=== PATIENT | female | born 2000 | race Caucasian/White ===

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

== ENCOUNTER 2021-01-13 13:53 | Emergency (ER) | payer MEDICAID ==
[~2021-01-13] VITALS: Ht 165 cm; Wt 100.0 kg
--- NOTE | 2021-01-13 15:07 | ED Lower Extremity ---
General Chief Complaint: Lower Extremity Stated Complaint: L KNEE INJ Nursing Triage Note: PT STATES SHE FELL DOWN THE STAIRS THIS MORING AND HURT HER LEFT KNEE Source: patient Exam Limitations: no limitations History of Present Illness Date Seen by Provider: Jan 13, 2021 Time Seen by Provider: 15:03 Initial Comments ER with left knee popping and pain. This is been ongoing since her senior year in high school after softball. She states that over the course of the past years been getting worse. Today she fell down the stairs and twisted her knee and doing so. There was no direct injury to the knee. She feels more of a popping sensation. She works at [employer] and is on her feet a lot. She has an appointment with Dr. Gaurang Gomez on the of this month. She has been using ibuprofen without much improvement. Onset: just prior to arrival Severity: moderate Pain/Injury Location: left knee Method of Injury: fell, twisted Modifying Factors: Worse With Movement Allergies and Home Medications Allergies Coded Allergies: No Known Drug Allergies (Verified , 06/18/20) Home Medications Cetirizine HCl 10 Mg Tablet, 10 MG PO DAILY Prescribed by: STEVE ARELLANO on 10/23/19 113 Hydroxyzine HCl 25 Mg Tablet, 25 MG PO TID PRN for ITCHING Prescribed by: STEVE ARELLANO on 10/23/19 113 Levocetirizine Dihydrochloride 5 Mg Tablet, 5 MG PO BID Prescribed by: STEVE ARELLANO on 06/18/202129 Levothyroxine Sodium 150 Mcg Tablet, 1 EACH PO DAILY, (Reported) Methylprednisolone 4 Mg Tab.ds.pk, 4 MG PO UD PER DOSE PACK INSTRUCTIONS Prescribed by: FATEMEH SILVA on 06/06/20 1235 Methylprednisolone 4 Mg Tab.ds.pk, 4 MG PO UD PER DOSE PACK INSTRUCTIONS Prescribed by: STEVE ARELLANO on 06/18/20 195 Montelukast Sodium 10 Mg Tablet, 10 MG PO DAILY Prescribed by: STEVE ARELLANO on 06/18/202134 Prednisone 20 Mg Tab, 40 MG PO DAILY Prescribed by: SNEHAL PRADO on 02/13/20 0156 Tramadol HCl 50 Mg Tablet, 50 MG PO Q6H PRN for PAIN-MODERATE (5-7) Prescribed by: STEVE ARELLANO on 01/13/21 1508 Patient Home Medication List Home Medication List Reviewed: Yes Review of Systems Constitutional: see HPI EENTM: see HPI Respiratory: no symptoms reported Cardiovascular: no symptoms reported Genitourinary: no symptoms reported Musculoskeletal: see HPI Skin: no symptoms reported Psychiatric/Neurological: No Symptoms Reported Past Cbyjhdl-Sorroj-Epikzy Hx Patient Social History Alcohol Use: Denies Use Smoking Status: Never a Smoker 2nd Hand Smoke Exposure: No Recent Infectious Disease Expo: No Recent Hopitalizations: No Immunizations Up To Date Tetanus Booster (TDap): Less than 5yrs PED Vaccines UTD: Yes Date of Influenza Vaccine: Jun 03, 2013 Seasonal Allergies Seasonal Allergies: No Past Medical History Surgeries: Yes Adenoidectomy, Tonsillectomy Respiratory: No Cardiac: No Neurological: No Reproductive Disorders: No Female Reproductive Disorders: Denies Sexually Transmitted Disease: No HIV/AIDS: No Genitourinary: No Gastrointestinal: Yes ( A BABY) Gastroesophageal Reflux Musculoskeletal: Yes Endocrine: Yes (Jm's thyroiditis, insulin resistant) Hypothyroidsim HEENT: No Cancer: No Psychosocial: Yes Anxiety, Depression Integumentary: Yes (HIVES/URTICARIA) Blood Disorders: No Family Medical History Cancer Cancer of colon Cataract Family history: Asthma Family history: Cardiovascular disease Family history: Diabetes mellitus Family history: Hypertension Family history: Thyroid disorder Heart disease No Family History of: Abdominal aortic aneurysm [place]'s disease Alcoholism Aphasia Congenital heart disease Congestive heart failure Cystic fibrosis Dementia Dysphagia Family history: Allergy Family history: Alzheimer's disease Family history: Arthritis Family history: Breast disease Family history: Coronary thrombosis Family history: Gastrointestinal disease Family history: Glaucoma Family history: Osteoporosis Headache Hearing loss Hereditary disease History of - anemia History of - disorder History of - respiratory disease History of drug abuse Human immunodeficiency virus (HIV) seropositivity Hypercholesterolemia Infertile Kidney disease Malignant neoplasm of lung Myocardial infarction Parkinson's disease Prostate cancer Psychotic disorder Seizure disorder Stroke Tuberculosis Visual impairment Physical Exam Vital Signs Vital Signs - First Documented 01/13/21 14:28 Temp 37.0 Pulse 65 Resp 16 B/P (MAP) 104/60 O2 Delivery Room Air Capillary Refill : Height, Weight, BMI Height: 5'5.00" Weight: 180lbs. 7oz. 81.792942ev; 36.00 BMI Method:Stated General Appearance: WD/WN, no apparent distress Neck: non-tender, full range of motion Respiratory: no respiratory distress, no accessory muscle use Hips: bilateral hip non-tender, bilateral hip normal inspection, bilateral hip normal range of motion Legs: bilateral leg non-tender, bilateral leg normal inspection, bilateral leg normal range of motion Knees: left knee pain, left knee other (Normal appearance normal range of motion) Ankles: bilateral ankle non-tender, bilateral ankle normal inspection, bilateral ankle normal range of motion Feet: bilateral foot non-tender, bilateral foot normal inspection, bilateral foot normal range of motion Neurologic/Psychiatric: alert, normal mood/affect, oriented x 3 Skin: normal color, warm/dry Progress/Results/Core Measures Results/Orders Vital Signs/I&O 01/13/21 14:28 Temp 37.0 Pulse 65 Resp 16 B/P (MAP) 104/60 O2 Delivery Room Air Departure Impression Primary Impression: Internal derangement of left knee Disposition: HOME, SELF-CARE Condition: Stable Departure-Patient Inst. Decision time for Depature: 15:05 Referrals: [facility] (PCP/Family) Primary Care Physician TABITHA ESTRADA MD Patient Instructions: Internal Derangement of the Knee, Meniscal Tear Add. Discharge Instructions: 1. Keep your appointment with Dr. Gomez and ask her if she feels MRI of the knee is appropriate. In the meantime continue ibuprofen and Tylenol in addition to the prescribed pain medication. All discharge instructions reviewed with patient and/or family. Voiced understanding. Scripts Tramadol HCl (Ultram) 50 Mg Tablet 50 MG PO Q6H PRN for PAIN-MODERATE (5-7), #14 TAB . Prov: STEVE ARELLANO APRN 01/13/21 Work/School Note: Work Release Form Date Seen in the Emergency Department: Jan 13, 2021 Return to Work: Jan 14, 2021 Restrictions: No Restrictions Other Restrictions Listed Below: Crutches as needed. Please allow to rest left knee for 30 minutes as needed STEVE ARELLANO APRN Jan 13, 2021 15:07
[2021-01-13] MEDS ORDERED: TRAM-42 PO ×2 (15:08→15:17)
== END 2021-01-13 15:16 | disposition home or self-care (01) ==
LOC: EDUNIT# 13:53 → ER 13:54
DX: M23.92 Unspecified internal derangement of left knee (principal); E03.9 Hypothyroidism, unspecified; F41.9 Anxiety disorder, unspecified; Z79.890 Hormone replacement therapy; Z79.52 Long term (current) use of systemic steroids; Z79.899 Other long term (current) drug therapy

== ENCOUNTER 2021-05-07 16:54 | Emergency (ER) | payer MEDICAID ==
[~2021-05-07] VITALS: Ht 165 cm; Wt 86.0 kg
[~2021-05-07 16:54] MED LIST changes: +TRAM-42 PO
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
--- OUTSIDE RECORDS SUMMARY | 2021-05-07 16:59 | XMS REPORT | Encounter Summary ---
Author Author [facility] Organization [facility] Address Unknown Phone Unavailable Care Team Providers Care Digital Manager Name Role Phone Jason Romero DO, Casey PCP Reason for Visit * Reason Comments Medication Refill Encounter Details Care Team Description Date Type Department Talia Van MD [address] [facility] [address] [place], [place] [phone] 04/30/2021 Refill Endocrinology: [facility] [place] [place] [address] [place] [id number] Social History Date Tobacco Use Types Packs/Day Years Used Never Smoker Smokeless Tobacco: Never Used Comments Alcohol Use Standard Drinks/Week Not Currently 0 (1 standard drink = 0.6 o z pure alcohol) Sex Assigned at Date Recorded Not on file documented as of this encounter Ordered Prescriptions Start Date End Date Prescription Sig Dispensed Refills 04/30/2021 levothyroxine (SYNTHROID) Take one 90 tablet 2 175 mcg tablet tablet by mouth daily 30 minutes before breakfast. documented in this encounter Plan of Treatment Not on filedocumented as of this encounter Visit Diagnoses Not on filedocumented in this encounter Discontinued Medications Start Date End Date Medication Sig Discontinue Reason 01/10/2021 04/30/2021 levothyroxine (SYNTHROID) Take one Reorder 175 mcg tablet tablet by mouth daily 30 minutes before breakfast. documented as of this encounter
[2021-05-07 17:36] LABS: BILIRUBIN,URINE NEGATIVE (NEGATIVE); CLARITY,URINE CLEAR; COLOR,URINE YELLOW; GLUCOSE, URINE (UA) NEGATIVE (NEGATIVE); KETONES,URINE NEGATIVE (NEGATIVE); LEUKOCYTE ESTERASE ,URINE NEGATIVE (NEGATIVE); NITRITE,URINE POSITIVE (NEGATIVE); PROTEIN,URINE NEGATIVE (NEGATIVE)
[2021-05-07 17:43] LABS: BASOPHILS % (AUTO) 0 % (0-10); EOSINOPHILS % (AUTO) 0 % (0-10); HEMATOCRIT 40 % (35-52); HEMOGLOBIN 12.8 g/dL (11.5-16.0); LYMPHOCYTES # (AUTO) 2.5 10^3/uL (1.0-4.0); LYMPHOCYTES % (AUTO) 21 % (12-44); MEAN CORPUSCULAR HEMOGLOBIN 28 pg (25-34); MEAN CORPUSCULAR HGB CONC 32 g/dL (32-36); MEAN CORPUSCULAR VOLUME 87 fL (80-99); MEAN PLATELET VOLUME 9.3 fL (9.0-12.2); MONOCYTES # (AUTO) 1.1 10^3/uL (0.0-1.0); MONOCYTES % (AUTO) 9 % (0-12); NEUTROPHILS # (AUTO) 8.3 10^3/uL (1.8-7.8); NEUTROPHILS % (AUTO) 69 % (42-75); PLATELET COUNT 294 10^3/uL (130-400)
[2021-05-07 17:44] LABS: BACTERIA,URINE LARGE /HPF
[2021-05-07 17:54] LABS: ALBUMIN 4.2 GM/DL (3.2-4.5); POTASSIUM 3.9 MMOL/L (3.6-5.0)
[2021-05-07 17:55] LABS: CALCIUM 9.5 MG/DL (8.5-10.1)
[2021-05-07 17:57] LABS: TOTAL PROTEIN 7.4 GM/DL (6.4-8.2)
[2021-05-07 17:58] LABS: BILIRUBIN,TOTAL 0.2 MG/DL (0.1-1.0); PROTHROMBIN TIME PATIENT 13.3 SEC (12.2-14.7)
[2021-05-07 18:00] LABS: CREATININE SERUM 0.74 MG/DL (0.60-1.30)
[2021-05-07] MEDS ORDERED: NS IV 1000 ML 1,000 ML IV SCH (18:00)
--- NOTE | 2021-05-07 18:02 | ED EENT ---
History of Present Illness General Chief Complaint: Eye Problems Stated Complaint: HEADACHE/OPTIC NERVE EDEMA Nursing Triage Note: AMB TO ROOM FROM DR [facility]AMPOS [facility] WAS SEEN BY DR MORTON FOR ROUTINE EYE EXAM A OPTIC NERVE RUELAS WHICH SHOWED OPTIC NERVE EDEMA. PATIENT REPORTS HAVING A HEADACHE WITH PRESSURE BEHINDE EYES FOR 2 MONTHS. (JENNIFER JAIMES) History of Present Illness Date Seen by Provider: May 07, 2021 Time Seen by Provider: 17:00 Initial Comments 20-year-old female presents after being seen by sports therapist for 2- month history of eye pressure. She had scans done in their office that showed edema around the optic nerve. She was referred here for labs, CT and possible lumbar puncture. Patient denies any previous history of injuries or problems with her eyes. She denies vision changes. She has a history of Jm's and is taking levothyroxine. She denies recent medication changes or allergies. No head or neck injuries in the past. Timing/Duration: other (2 months) Location: eye (R), eye (L) Associated Symptoms: facial pain/swelling (sis orbital) (JENNIFER JAIMES) Allergies and Home Medications Allergies Coded Allergies: No Known Drug Allergies (Verified , 06/18/20) Patient Home Medication List Home Medication List Reviewed: Yes (JENNIFER JAIMES) Cetirizine HCl (Cetirizine HCl) 10 Mg Tablet, 10 MG PO DAILY Prescribed by: STEVE ARELLANO on 10/23/19 113 Hydroxyzine HCl (Hydroxyzine HCl) 25 Mg Tablet, 25 MG PO TID PRN for ITCHING Prescribed by: STEVE ARELLANO on 10/23/19 113 Levocetirizine Dihydrochloride (Levocetirizine Dihydrochloride) 5 Mg Tablet, 5 M G PO BID Prescribed by: STEVE ARELLANO on 06/18/202129 Levothyroxine Sodium (Levothyroxine 150 Mcg Tab) 150 Mcg Tablet, 1 EACH PO DAILY, (Reported) Entered as Reported by: OSMAN SANTANA on 12/24/13 175 Methylprednisolone (Methylprednisolone Dose Pack) 4 Mg Tab.ds.pk, 4 MG PO UD Prescribed by: FATEMEH SILVA on 06/06/20 1235 Methylprednisolone (Medrol) 4 Mg Tab.ds.pk, 4 MG PO UD Prescribed by: STEVE ARELLANO on 06/18/201954 Montelukast Sodium (Montelukast Sodium) 10 Mg Tablet, 10 MG PO DAILY Prescribed by: STEVE ARELLANO on 06/18/202134 Nitrofurantoin Macrocrystal (Nitrofurantoin) 100 Mg Capsule, 100 MG PO BID Prescribed by: JENNIFER JAIMES on 05/07/211907 Norgestimate-Ethinyl Estradiol (Tri-Lo-Enedina Tablet) 1 Each Tablet, (Reported) Entered as Reported by: THOMAS TRACEY on 02/13/20 014 Prazosin HCl (Prazosin HCl) 2 Mg Capsule, (Reported) Entered as Reported by: THOMAS TRACEY on 02/13/20 014 Prazosin HCl (Prazosin HCl) 5 Mg Capsule, (Reported) Entered as Reported by: THOMAS TRACEY on 02/13/20 014 Prednisone (Prednisone) 20 Mg Tab, 40 MG PO DAILY Prescribed by: SNEHAL PRADO on 02/13/20 0156 Tramadol HCl (Ultram) 50 Mg Tablet, 50 MG PO Q6H PRN for PAIN-MODERATE (5-7) Prescribed by: STEVE ARELLANO on 01/13/21 1517 Review of Systems Review of Systems Constitutional: no symptoms reported, see HPI Eyes: See HPI; Denies Blurred Vision, Denies Decreased Acuity, Denies Foreign Body Sensation, Denies Inflammation; Pain; Denies Photophobia, Denies Tunnel Vision, Denies Vision Changes; Contact Lenses, Glasses Ears: No Symptoms Reported, See HPI Nose: no symptoms reported, see HPI Mouth: no symptoms reported, see HPI Throat: no symptoms reported, see HPI Respiratory: no symptoms reported, see HPI Cardiovascular: no symptoms reported, see HPI : No (Neg Urine HCG) (JENNIFER JAIMES) All Other Systems Reviewed Negative Unless Noted: Yes (JENNIFER JAIMES) Past Cfgiclh-Brcbky-Nxytzp Hx Patient Social History Tobacco Use?: No (JENNIFER JAIMES) Immunizations Up To Date Tetanus Booster (TDap): Less than 5yrs PED Vaccines UTD: Yes First/Initial COVID19 Vaccinat: MAR Second COVID19 Vaccination Lucio: APR COVID19 Vaccine Braider Operator: FARIHA (JENNIFER JAIMES) Seasonal Allergies Seasonal Allergies: No (JENNIFER JAIMES) Past Medical History Surgeries: Yes Adenoidectomy, Tonsillectomy Respiratory: No Cardiac: No Neurological: No Reproductive Disorders: No Female Reproductive Disorders: Denies Sexually Transmitted Disease: No HIV/AIDS: No Genitourinary: No Gastrointestinal: Yes ( A BABY) Gastroesophageal Reflux Musculoskeletal: Yes Endocrine: Yes (Jm's thyroiditis, insulin resistant) Hypothyroidsim HEENT: No Cancer: No Psychosocial: Yes Anxiety, Depression Integumentary: Yes (HIVES/URTICARIA) Blood Disorders: No (JENNIFER JAIMES) Family Medical History Reviewed Nursing Family Hx (JENNIFER JAIMES) Cancer Cancer of colon Cataract Family history: Asthma Family history: Cardiovascular disease Family history: Diabetes mellitus Family history: Hypertension Family history: Thyroid disorder Heart disease No Family History of: Abdominal aortic aneurysm Backus's disease Alcoholism Aphasia Congenital heart disease Congestive heart failure Cystic fibrosis Dementia Dysphagia Family history: Allergy Family history: Alzheimer's disease Family history: Arthritis Family history: Breast disease Family history: Coronary thrombosis Family history: Gastrointestinal disease Family history: Glaucoma Family history: Osteoporosis Headache Hearing loss Hereditary disease History of - anemia History of - disorder History of - respiratory disease History of drug abuse Human immunodeficiency virus (HIV) seropositivity Hypercholesterolemia Infertile Kidney disease Malignant neoplasm of lung Myocardial infarction Parkinson's disease Prostate cancer Psychotic disorder Seizure disorder Stroke Tuberculosis Visual impairment Physical Exam Vital Signs Vital Signs - First Documented 05/07/21 16:58 Temp 36.6 Pulse 89 Resp 18 B/P (MAP) 112/72 (85) Pulse Ox 99 O2 Delivery Room Air (YASH STOUT MD) Height, Weight, BMI Height: 5'5.00" Weight: 180lbs. 7oz. 81.335325vq; 31.00 BMI Method:Stated General Appearance: WD/WN, no apparent distress Eyes: bilateral eye normal inspection, bilateral eye PERRL, bilateral eye EOMI Ears: bilateral ear auricle normal, bilateral ear canal normal, bilateral ear TM normal Nose: normal inspection; No discharge Mouth/Throat: normal mouth inspection, pharynx normal; No dental tenderness Neck: non-tender, full range of motion, supple, normal inspection Cardiovascular: normal peripheral pulses, regular rate, rhythm Respiratory: chest non-tender, lungs clear, normal breath sounds Gastrointestinal: normal bowel sounds, non tender, soft Neurologic/Psychiatric: help desk agent II-XII nml as tested, no motor/sensory deficits, alert, normal mood/affect, oriented x 3 Skin: normal color, warm/dry (JENNIFER JAIMES) Progress/Results/Core Measures Results/Orders Lab Results Laboratory Tests Test 05/07/21 17:26 05/07/21 17:31 Range/Units White Blood Count 12.0 H 4.3-11.0 10^3/uL Red Blood Count 4.63 3.80-5.11 10^6/uL Hemoglobin 12.8 11.5-16.0 g/dL Hematocrit 40 35-52 % Mean Corpuscular Volume 87 80-99 fL Mean Corpuscular Hemoglobin 28 25-34 pg Mean Corpuscular Hemoglobin Concent 32 32-36 g/dL Red Cell Distribution Width 13.6 10.0-14.5 % Platelet Count 294 130-400 10^3/uL Mean Platelet Volume 9.3 9.0-12.2 fL Immature Granulocyte % (Auto) 0 % Neutrophils (%) (Auto) 69 42-75 % Lymphocytes (%) (Auto) 21 12-44 % Monocytes (%) (Auto) 9 0-12 % Eosinophils (%) (Auto) 0 0-10 % Basophils (%) (Auto) 0 0-10 % Neutrophils # (Auto) 8.3 H 1.8-7.8 10^3/uL Lymphocytes # (Auto) 2.5 1.0-4.0 10^3/uL Monocytes # (Auto) 1.1 H 0.0-1.0 10^3/uL Eosinophils # (Auto) 0.0 0.0-0.3 10^3/uL Basophils # (Auto) 0.0 0.0-0.1 10^3/uL Immature Granulocyte # (Auto) 0.0 0.0-0.1 10^3/uL Prothrombin Time 13.3 12.2-14.7 SEC INR Comment 1.0 0.8-1.4 Activated Partial Thromboplast Time 30 24-35 SEC Sodium Level 139 135-145 MMOL/L Potassium Level 3.9 3.6-5.0 MMOL/L Chloride Level 105 98-107 MMOL/L Carbon Dioxide Level 25 21-32 MMOL/L Anion Gap 9 5-14 MMOL/L Blood Urea Nitrogen 15 7-18 MG/DL Creatinine 0.74 0.60-1.30 MG/DL Estimat Glomerular Filtration Rate 101 BUN/Creatinine Ratio 20 Glucose Level 88 70-105 MG/DL Calcium Level 9.5 8.5-10.1 MG/DL Corrected Calcium 9.3 8.5-10.1 MG/DL Total Bilirubin 0.2 0.1-1.0 MG/DL Aspartate Amino Transf (AST/SGOT) 12 5-34 U/L Alanine Aminotransferase (ALT/SGPT) 10 0-55 U/L Alkaline Phosphatase 75 40-136 U/L C-Reactive Protein High Sensitivity 2.35 H 0.00-0.50 MG/DL Total Protein 7.4 6.4-8.2 GM/DL Albumin 4.2 3.2-4.5 GM/DL Thyroid Stimulating Hormone (TSH) 1.84 0.35-4.94 UIU/ML Urine Color YELLOW Urine Clarity CLEAR Urine pH 6.0 5-9 Urine Specific Orange 1.025 H 1.016-1.022 Urine Protein NEGATIVE NEGATIVE Urine Glucose (UA) NEGATIVE NEGATIVE Urine Ketones NEGATIVE NEGATIVE Urine Nitrite POSITIVE H NEGATIVE Urine Bilirubin NEGATIVE NEGATIVE Urine Urobilinogen 0.2 < = 1.0 MG/DL Urine Leukocyte Esterase NEGATIVE NEGATIVE Urine RBC (Auto) NEGATIVE NEGATIVE Urine RBC NONE /HPF Urine WBC 2-5 /HPF Urine Squamous Epithelial Cells 2-5 /HPF Urine Renal Epithelial Cells NONE /HPF Urine Crystals NONE /LPF Urine Bacteria LARGE H /HPF Urine Casts NONE /LPF Urine Mucus NEGATIVE /LPF Urine Culture Indicated YES (YASH STOUT MD) Medications Given in ED Current Medications Medications Dose Ordered Sig/Shiraz Route Start Time Stop Time Status Last Admin Dose Admin Iohexol 100 ml ONCE ONCE IV 05/07/21 18:15 05/07/21 18:16 DC 05/07/21 18:12 80 ML Sodium Chloride 100 ml ONCE ONCE IV 05/07/21 18:15 05/07/21 18:16 DC 05/07/21 18:12 80 ML (YASH STOUT MD) Vital Signs/I&O 05/07/21 05/07/21 16:58 19:25 Temp 36.6 36.6 Pulse 89 77 Resp 18 16 B/P (MAP) 112/72 (85) 110/72 Pulse Ox 99 99 O2 Delivery Room Air Room Air 05/08/21 00:00 Intake Total 1000 ml Balance 1000 ml (YASH STOUT MD) Blood Pressure Mean: 85 Progress Progress Note : Time: 17:00 Progress Note patient evaluated. Will obtain labs and CT head. Will give NS 1 L IV. Denies any need for medications. 1800 Labs essentially normal. CRP 2.35. 1830 CT results reviewed with Radiologist. No acute findings. Spoke with Dr. Morton, feels the LP can be completed outpatient tomorrow with anesthesia. Scheduled LP with dye house wheel operator and orders provided. 1900 discharge instructions reviewed with the patient. Return precautions discussed. All questions answered. (JENNIFER JAIMES) Departure Impression Primary Impression: Eye pressure Additional Impressions: Optic nerve edema Pseudotumor cerebri Disposition: HOME, SELF-CARE Condition: Stable Departure-Patient Inst. Decision time for Depature: 19:05 (EJNNIFER JAIMES) Referrals: [facility] [place] (PCP/Family) Primary Care Physician Patient Instructions: Headache, Adult (DC) Add. Discharge Instructions: Activity as tolerated. Continue your home medications. Call registration tomorrow morning, [phone] time to have your lumbar puncture. Follow-up with Dr. Morton and Dr. Vazquez for your results. Light breakfast in morning, prior to Lumbar Puncture. Take antibiotics as prescribed for the UTI. You may alternate between Tylenol 650 mg and ibuprofen 600 mg every 4 hours for pain. Increase water intake, 16 ounces every 2 hours while awake. Empty your bladder every 2 hours. Return to the emergency department for new, urgent healthcare needs. All discharge instructions reviewed with patient and/or family. Voiced understanding. Scripts Nitrofurantoin Macrocrystal (Nitrofurantoin) 100 Mg Capsule 100 MG PO BID, #14 CAP 0 Refills Prov: JENNIFER JAIMES 05/07/21 ATTENDING PHYSICIAN NOTE: I was physically present as attending physician in the emergency department during the care of this patient, and I have discussed the plan of care including work-up and follow-up care with Jennifer Jaimes NP. (YASH STOUT MD) Copy Copies To 1: FERNANDO VAZQUEZ DO; ASHANTI CAMPOS OD, AMY ARNP May 07, 2021 18:02 YASH STOUT MD May 08, 2021 00:27
[2021-05-07] MEDS ORDERED: NS 100 ML (IVPB) BAG IV ONE (18:15)
[2021-05-07] MEDS ORDERED: HOLD METFORMIN - RECEIVED CONTRAST 20 ML VIAL IV SCH (18:15)
[2021-05-07] MEDS ORDERED: IOHEXOL 350 MG/ML 100 ML (OMNIPAQUE 350) VIAL IV ONE (18:15)
--- NOTE | 2021-05-07 18:31 | Diagnostic Imaging Report ---
PROCEDURE: CT head with contrast. TECHNIQUE: Multiple contiguous axial images were obtained through the brain after the administration of intravenous contrast. Auto Exposure Controls were utilized during the CT exam to meet ALARA standards for radiation dose reduction. INDICATION: Headaches, eye pressure There are no prior CT examinations available for comparison. The MRI brain exam performed on 01/30/2014 failed to show any sign of an acute intracranial abnormality. On the pre-intravenous contrast series of this exam there is no mass, shift of the midline or hemorrhage to indicate an acute abnormality. On the postcontrast series, there is no large vessel occlusion identified nor is there any sign of an aneurysm of the [place]. Furthermore, there is no abnormal enhancement on the postcontrast series to suggest a neoplastic or infectious process. The bone windows show no sign of a fracture or of a destructive lesion. The orbits appear symmetrical. There is no abnormal enhancement to indicate an acute abnormality involving either orbit. The sinuses are generally clear as are the mastoid air cells. IMPRESSION: 1. There is no evidence for an acute intracranial abnormality. There is no abnormality of the orbits identified either. 2. If clinical concern regarding an underlying abnormality persists, then MRI of the brain and orbits would be recommended for further study. 3. These results were discussed with Dr. Jennifer Galeano.. Dictated by: Dictated on workstation # [id number]
[2021-05-07] MEDS ORDERED: NITR100C PO ×2 (19:08)
[2021-05-07] MEDS ORDERED: RX-NITROFURANTOIN 100 MG (MACROBID) CAP PPK#2 PO STA (19:12)
[2021-05-07 19:25] VITALS: BP 110/72
== END 2021-05-07 19:26 | disposition home or self-care (01) ==
LOC: EDUNIT# 16:54 → ER 16:56
DX: H40.053 Ocular hypertension, bilateral (principal); H47.10 Unspecified papilledema; G93.2 Benign intracranial hypertension; E03.9 Hypothyroidism, unspecified; F41.9 Anxiety disorder, unspecified; Z79.890 Hormone replacement therapy; Z79.899 Other long term (current) drug therapy
CPT/HCPCS: 36415; 70460; 70470; 80053; 81000; 84443; 84703; 85025; 85610; 85730; 86141; 87077; 87088; 87186

== ENCOUNTER 2021-05-08 11:48 | Outpatient (CLI) | payer MEDICAID ==
[~2021-05-08] VITALS: Ht 162 cm; Wt 86.0 kg
[~2021-05-08 11:48] MED LIST changes: +NITR100C PO
[2021-05-08 12:23] VITALS: BP 101/52
--- NOTE | 2021-05-08 13:19 | Anesthesia-Procedure Note ---
Procedures/Interventions Procedure Start/Stop/Diagnosis Date of Procedure: May 08, 2021 Start Time: 12:30 Referring Physician: Preprocedural Diagnosis: headaches Stop Time: 13:05 Lumbar Puncture Discussed Risk,Benefits: Yes Patient Consents: Yes Position: Lying, Left Sterile Technique: Yes Opening Pressure: 49 Fluid Color: Clear Spinal Needle Used: Other (22 gauge Pencan) Procedure Notes Spoke with patient about the procedure technique, risks and expected side effects. Consent signed. Pat to left side position. L4/5 space ID'd. Pt back prepped with beta x 3. 22 gauge pencan placed without difficulty. Opening pressure as above. CSF obtained. Care to RN. TOBIN SANDHU CRNA May 08, 2021 13:19
[2021-05-08 14:01] LABS: COLOR,CSF COLORLESS; RED BLOOD CELL,CSF 2 CELLS (0-0); WHITE BLOOD CELL,CSF 2 CELLS (0-5)
[2021-05-08 14:02] LABS: CSF TUBE NUMBER 4
[2021-05-08 14:06] LABS: CSF GLUCOSE 53 MG/DL (50-80)
[2021-05-08 14:12] LABS: CSF TOTAL PROTEIN 18 MG/DL (15-40)
[2021-05-08 15:02] LABS: APPEARANCE,CSF CLEAR
== END 2021-05-08 13:37 ==
LOC: SDC 11:48
PROVIDERS: ATTEND Registered Nurse
DX: G93.2 Benign intracranial hypertension (principal)
CPT/HCPCS: 82945; 84157; 87070; 87205; 89051

== ENCOUNTER → 2021-05-16 | Outpatient (CLI) | payer MEDICAID ==
[~2021-05-16] MED LIST changes: +GADOBUTROL 15 MMOL/15 ML (GADAVIST) VIAL IV ONE
--- NOTE | 2021-05-16 21:18 | Diagnostic Imaging Report ---
PROCEDURE: MR imaging of the brain with and without contrast. TECHNIQUE: Multiplanar, multisequence MR imaging of the brain was performed with and without contrast. DATE: May 16, 2021. COMPARISON: MRI brain January 30, 2014. CT head May 07, 2021. HISTORY: 20-year-old female, headaches. History of lumbar puncture less than 1 week ago. FINDINGS: There are substantial limitations on the diffusion-weighted sequences. There is no clear area of diffusion restriction. There is also a substantial limitation on the gradient echo sequence for assessment of susceptibility without visualized area of abnormal susceptibility. There are additional areas of very prominent artifact anteriorly on the additional sequences which does limit evaluation. The ventricles and additional CSF spaces are normal in size and configuration for patient age. There is no identified subdural or epidural hematoma. There is hyperintense signal in the sulci anteriorly which is most likely related to the artifact. There is no mass effect or midline shift. There are no areas of abnormal intracranial signal. The mastoid air cells and middle ears are well-aerated, bilaterally. There is no identified abnormal intracranial enhancement. IMPRESSION: 1. Limitations of the exam relating to prominent artifact anteriorly. 2. No identified acute intracranial abnormality. Dictated by: Dictated on workstation # [id number]
== END ==
LOC: RAD 14:36
PROVIDERS: ATTEND Pediatrics
DX: R51.9 Headache, unspecified (principal); Z98.890 Other specified postprocedural states
CPT/HCPCS: 70553

== ENCOUNTER 2021-08-10 19:11 | Emergency (ER) | payer MEDICAID ==
[~2021-08-10] VITALS: Ht 165 cm; Wt 100.0 kg
[~2021-08-10 19:11] MED LIST changes: -GADOBUTROL 15 MMOL/15 ML (GADAVIST) VIAL IV ONE; +MONT-40 PO; -MONT10TA32 PO
--- OUTSIDE RECORDS SUMMARY | 2021-08-10 19:20 | XMS REPORT | Encounter Summary ---
Author Author [facility] Organization [facility] Address Unknown Phone Unavailable Care Team Providers Care Medical Service Technician Name Role Phone Jason Romero DO, Casey PCP Reason for Visit * Reason Onset Date Comments Other 06/25/2021 reschedule Encounter Details Care Team Description Date Type Department Talia Van MD [address] Ortho/[facility] [address] [place] [address] Other (reschedule) 06/25/2021 Telephone Endocrinology: [facility] [place] [address] [place] [address] Social History Date Tobacco Use Types Packs/Day Years Used Never Smoker Smokeless Tobacco: Never Used Comments Alcohol Use Standard Drinks/Week Not Currently 0 (1 standard drink = 0.6 o z pure alcohol) Sex Assigned at Date Recorded Not on file documented as of this encounter Miscellaneous Notes * Telephone Encounter - Juliana Osuna RN - 06/25/2021 9:53 AM ADMISSIONS REPRESENTATIVE [phone] attempted call to pt for virtual checkin No answer, LVM requesting return call [phone] attempted second call to pt for virtual checkin No answer, LVM requesting return call [phone] attempted third call to pt for virtual checkin No answer, LVM requesting return call to scheduling to reschedule appt SSIONS REPRESENTATIVE documented in this encounter Plan of Treatment Not on filedocumented as of this encounter Visit Diagnoses Not on filedocumented in this encounter Care Teams Start Date End Date Medical Service Technician Relationship Specialty 12/25/20 Gaurang Gomez V, DO PCP - General Internal [address], [place] [id number] documented as of this encounter
--- OUTSIDE RECORDS SUMMARY | 2021-08-10 19:20 | XMS REPORT | Clinical Summary ---
Author Author [facility] Organization [facility] Address Unknown Phone Unavailable Care Team Providers Care Associate Broker Name Role Phone Jason Romero DO, Casey PCP Source Comments Some departments are not documenting in the electronic medical record. If you d o not see the information that you expected, contact Release of Information in [facility]ua[facility]ea Information Management department at [phone] for further assistan ce in locating additional records.[facility] Allergies No known active allergies Medications End Date Status Medication Sig Dispensed [...] Description Date Type Specialty Talia Van MD Other 07/30/2021 Telephone Endocrinology, [facility] Talia Van MD Other (reschedule) 06/25/2021 Telephone Endocrinology, [facility] Talia Van MD Other (Outside lab) 06/11/2021 Telephone Endocrinology, [facility] Talia Van MD Hypothyroidism, unspecified type 06/11/2021 Orders Only Endocrinology, [place] Talia Van MD Patient Reported Other 05/20/2021 Telephone Endocrinology, [place] [facility] from Last 3 Months [...] Due Date Last Done Comments CHLAMYDIA SCREENING 18-24 2001 YEARS HIV SCREENING 2016 HEPATITIS C SCREENING 2019 PHYSICAL (COMPREHENSIVE) 2019 EXAM INFLUENZA VACCINE 03/03/2021 09/15/2017 DTAP/TDAP VACCINES (7 - 05/02/2025 05/02/2015, Td or Tdap) 10/21/2005, 01/24/2004, Additional history exists HPV VACCINES Completed 10/28/2016, 10/30/2015, 07/03/2015 MENINGOCOCCAL VACCINE Completed 11/12/2017, (ACWY,Menactra) 10/28/2016 Procedures Comments Procedure Name Priority Date/Time Associated Diag nosis THYROID STIMULATING Routine 06/10/2021 Hypothyroi dism, HORMONE-TSH unspecified type FREE T4 (FREE THYROXINE) Routine 06/10/2021 Hypot hyroidism, ONLY unspecified type from Last 3 Months Results * (ABNORMAL) THYROID STIMULATING HORMONE-TSH (06/10/2021) TSH 0.37 (A) 0.50 - 4.30 OTHER OUTSIDE LAB Specimen Blood specimen (specimen) - Blood Narrative Performing Organization Address City/State/ZIP Code [place] OTHER OUTSIDE LAB * (ABNORMAL) FREE T4 (FREE THYROXINE) ONLY (06/10/2021) T4-Free 1.5 (A) 0.8 - 1.4 OTHER OUTSIDE LAB Specimen Blood specimen (specimen) - Blood Narrative Performing Organization Address City/State/ZIP Code [place] OTHER OUTSIDE LAB from Last 3 Months Insurance Type Payer Benefit Subscriber ID Effective Phone Address Plan / Dates Group Medicaid [facility] MEDICAID [facility] [id number] 2020-P [address] [place] [address] Advance Directives Patient Asbestos Abatement Technician Explanation Type Date Recorded Advance Directive/DPOA Care Teams Start Date End Date Associate Broker Relationship Specialty 12/25/20 Gaurang Gomez DO PCP - General Internal [address] [place] [address]
--- OUTSIDE RECORDS SUMMARY | 2021-08-10 19:20 | XMS REPORT | Encounter Summary ---
Author Author [facility] Organization [facility] Address Unknown Phone Unavailable Care Team Providers Care Party Supply Specialist Name Role Phone Jason Romero DO, Casey PCP Reason for Visit * Reason Onset Date Comments Other 07/30/2021 Encounter Details Care Team Description Date Type Department Talia Van MD [address] [facility] Ortho/Med [place] [place] [address] Other 07/30/2021 Telephone Endocrinology: [facility] [place], [facility] [address] [place] [address] Social History Date Tobacco Use Types Packs/Day Years Used Never Smoker Smokeless Tobacco: Never Used Comments Alcohol Use Standard Drinks/Week Not Currently 0 (1 standard drink = 0.6 o z pure alcohol) Sex Assigned at Date Recorded Not on file documented as of this encounter Miscellaneous Notes * Telephone Encounter - Juliana Osuna RN - 07/30/2021 9:35 AM MICROSOFT DYNAMICS AX DEVELOPER Called pt, relayed provider recommendations She verbalized understanding Would like lab orders sent to [facility] in [facility] RN called them at phone to get fax Faxed orders to [phone] Confirmation received 07/30/21 OSOFT DYNAMICS AX DEVELOPER * Telephone Encounter - Talia Van MD - 07/30/2021 9:26 AM MICROSOFT DYNAMICS AX DEVELOPER Please congratulate her for me. Let's get labs BRENDON - TSH and Free T4. Also ask her to add 2 extra Levothyroxine tabs per week for now. (ie, 1 tab five days per week, 2 tabs two days per week). Labs now as then in 4 weeks as well. I've ordered standing labs - can you please fax them to her preferred lab? Needs to get f/u appt with me or KENNEDY - missed her appt with me last month. Thanks KG OSOFT DYNAMICS AX DEVELOPER * Telephone Encounter - Juliana Osuna RN - 07/30/2021 9:10 AM MICROSOFT DYNAMICS AX DEVELOPER Pt called, LVM States "I need to talk to Talia Van as soon as possible" RN returned call to discuss Pt states she just found out today that she is Pt unsure how far along, but due date is March 19 2022 Current thyroid medication Levothyroxine 175mcg Routing to Dr. Van for review and advisement OSOFT DYNAMICS AX DEVELOPER documented in this encounter Plan of Treatment Order Schedule Name Type Priority Associated Diag noses Every 4 Weeks Auto for 9 Occurrences sta rting 07/30/2021 until 07/30/2022 THYROID STIMULATING Lab Routine Hypothyroi dism affecting HORMONE-TSH , antepartum Every 4 Weeks Auto for 9 Occurrences sta rting 07/30/2021 until 07/30/2022 FREE T4 (FREE THYROXINE) Lab Routine Hypot hyroidism affecting ONLY , antepartum documented as of this encounter Visit Diagnoses Diagnosis Hypothyroidism affecting , ant epartum - Primary documented in this encounter Care Teams Start Date End Date Party Supply Specialist Relationship Specialty 12/25/20 Gaurang Gomez DO PCP - General Internal [address] [place] [address] documented as of this encounter
--- OUTSIDE RECORDS SUMMARY | 2021-08-10 19:20 | XMS REPORT | Encounter Summary ---
Author Author [facility] Organization [facility] Address Unknown Phone Unavailable Care Team Providers Care Senior Litigation Paralegal Name Role Phone Jason Romero DO, Casey PCP Encounter Details Care Team Description Date Type Department Talia Van MD [address] [facility] [address] [place] [address] Hypothyroidism, unspecified type 06/11/2021 Orders Only Endocrinology: Main [place] [address] [place] [id number] Social History Date Tobacco Use Types Packs/Day Years Used Never Smoker Smokeless Tobacco: Never Used Comments Alcohol Use Standard Drinks/Week Not Currently 0 (1 standard drink = 0.6 o z pure alcohol) Sex Assigned at Date Recorded Not on file documented as of this encounter Plan of Treatment Not on filedocumented as of this encounter Procedures Comments Procedure Name Priority Date/Time Associated Diag nosis THYROID STIMULATING Routine 06/10/2021 Hypothyroi dism, HORMONE-TSH unspecified type FREE T4 (FREE THYROXINE) Routine 06/10/2021 Hypot hyroidism, ONLY unspecified type documented in this encounter Results * (ABNORMAL) THYROID STIMULATING HORMONE-TSH (06/10/2021) [...] Code P waldo Number OTHER OUTSIDE LAB documented in this encounter Visit Diagnoses Diagnosis Hypothyroidism, unspecified type documented in this encounter Care Teams Start Date End Date Senior Litigation Paralegal Relationship Specialty 12/25/20 Gaurang Gomez V, PCP - General Internal [address], [place] [id number] documented as of this encounter
--- OUTSIDE RECORDS SUMMARY | 2021-08-10 19:20 | XMS REPORT | Encounter Summary ---
Author Author [facility] Organization [facility] Address Unknown Phone Unavailable Care Team Providers Care Seat Installer Name Role Phone Jason Romero DO, Casey PCP Reason for Visit * Reason Onset Date Comments Other 06/11/2021 Outside lab Encounter Details Care Team Description Date Type Department Talia Van MD [address] Orth[facility] [address] [place], [place] [id number] Other (Outside lab) 06/11/2021 Telephone Endocrinology: Main [place], [facility] [address] [place] [address] Social History Date Tobacco Use Types Packs/Day Years Used Never Smoker Smokeless Tobacco: Never Used Comments Alcohol Use Standard Drinks/Week Not Currently 0 (1 standard drink = 0.6 o z pure alcohol) Sex Assigned at Date Recorded Not on file documented as of this encounter Miscellaneous Notes * Telephone Encounter - Giuliana Mccarty LPN - 06/11/2021 11:09 AM AVIAN KEEPER Received labs from [facility] Placed in Dr Alberto folder for review N KEEPER documented in this encounter Plan of Treatment Not on filedocumented as of this encounter Visit Diagnoses Not on filedocumented in this encounter Care Teams Start Date End Date Seat Installer Relationship Specialty 12/25/20 Gaurang Gomez DO PCP - General Internal [address] [place] [address] documented as of this encounter
[2021-08-10] MEDS ORDERED: LACTATED RINGERS 1,000 ML IV ONE (20:15)
--- NOTE | 2021-08-10 21:00 | ED General ---
General Chief Complaint: Abdominal/GI Problems Stated Complaint: 8 WKS PREG, STOMACH DISCOMFORT, PINK DISCHARGE Nursing Triage Note: PT REPORTS DIARRHEA SINCE LAST NIGHT. 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 PT IS APPROX 8 WKS . Source of Information: Patient History of Present Illness Date Seen by Provider: Aug 10, 2021 Time Seen by Provider: 20:05 Initial Comments PT ARRIVES VIA POV FROM HOME STATES "I'VE HAD NON-STOP DIARRHEA SINCE LAST NIGHT AND MY BODY CAN'T KEEP UP" HAS HAD DIARRHEA ABOUT 10 TIMES SINCE LAST NIGHT. NO BLACK/BLOODY/TARRY STOOLS MILD NAUSEA, NO VOMITING NO ABDOMINAL PAIN OR CRAMPING NO FEVER/SWEATS/CHILLS NO URINARY SYMPTOMS AND IS VOIDING A NORMAL AMOUNT NO DIZZINESS NO RESPIRATORY SYMPTOMS PT STATES SHE IS 8 WEEKS WITH LMP 06/12/21. IS PLANNING ON ESTABLISHING WITH DR. FLORES FOR OB CARE--APPOINTMENT 08/20/21 STATES JUST PRIOR TO ARRIVAL, SHE NOTICED A PINK TINGE ON TISSUE WHEN SHE WIPED AFTER URINATING. SO CAME TO ER. NO FURTHER BLEEDING PT HAS HAD COVID-19 VACCINE NO SICK CONTACTS OR SUSPICIOUS FOODS PCP: [facility], PAM VAZQUEZ. PLANS ON ESTABLISHING WITH DR. FLORES FOR OB CARE Allergies and Home Medications Allergies Coded Allergies: No Known Drug Allergies (Verified , 05/08/21) Patient Home Medication List Home Medication List Reviewed: Yes Cetirizine HCl (Cetirizine HCl) 10 Mg Tablet, 10 MG PO DAILY Prescribed by: STEVE ARELLANO on 10/23/19 1131 Hydroxyzine HCl (Hydroxyzine HCl) 25 Mg Tablet, 25 MG PO TID PRN for ITCHING Prescribed by: STEVE ARELLANO on 10/23/19 1131 Levocetirizine Dihydrochloride (Levocetirizine Dihydrochloride) 5 Mg Tablet, 5 MG PO BID Prescribed by: STEVE ARELLANO on 06/18/20 213 Levothyroxine Sodium (Levothyroxine 150 Mcg Tab) 150 Mcg Tablet, 1 EACH PO DAILY, (Reported) Entered as Reported by: OSMAN SANTANA on 12/24/13 1758 Methylprednisolone (Methylprednisolone Dose Pack) 4 Mg Tab.ds.pk, 4 MG PO UD Prescribed by: FATEMEH SILVA on 06/06/20 1235 Methylprednisolone (Medrol) 4 Mg Tab.ds.pk, 4 MG PO UD Prescribed by: STEVE ARELLANO on 06/18/201954 Montelukast Sodium (Montelukast Sodium) 10 Mg Tablet, 10 MG PO DAILY Prescribed by: STEVE ARELLANO on 06/18/202134 Nitrofurantoin Macrocrystal (Nitrofurantoin) 100 Mg Capsule, 100 MG PO BID Prescribed by: RAMYA JAIMES on 05/07/21 190 Norgestimate-Ethinyl Estradiol (Tri-Lo-Enedina Tablet) 1 Each Tablet, (Reported) Entered as Reported by: THOMAS TRACEY on 02/13/20 014 Prazosin HCl (Prazosin HCl) 2 Mg Capsule, (Reported) Entered as Reported by: THOMAS TRACEY on 02/13/20145 Prazosin HCl (Prazosin HCl) 5 Mg Capsule, (Reported) Entered as Reported by: THOMAS TRACEY on 02/13/20145 Prednisone (Prednisone) 20 Mg Tab, 40 MG PO DAILY Prescribed by: SNEHAL PRADO on 02/13/20 0156 Tramadol HCl (Ultram) 50 Mg Tablet, 50 MG PO Q6H PRN for PAIN-MODERATE (5-7) Prescribed by: STEVE ARELLANO on 01/13/21 1517 Review of Systems Review of Systems Constitutional: no symptoms reported; No dizziness EENTM: no symptoms reported Respiratory: no symptoms reported Cardiovascular: no symptoms reported Gastrointestinal: see HPI Genitourinary: see HPI : Yes LMP: Jun 12, 2021 Musculoskeletal: no symptoms reported Skin: no symptoms reported Psychiatric/Neurological: No Symptoms Reported Hematologic/Lymphatic: No Symptoms Reported Immunological/Allergic: no symptoms reported Past Syzogyx-Ptcdwn-Ucpkcg Hx Patient Social History Tobacco Use?: No Substance use?: No Alcohol Use?: No Pt feels they are or have been: No Immunizations Up To Date Tetanus Booster (TDap): Less than 5yrs PED Vaccines UTD: Yes First/Initial COVID19 Vaccinat: JANUARY 2021 Second COVID19 Vaccination Lucio: JANUARY 2021 COVID19 Vaccine Treasury Specialist: YOVANI Seasonal Allergies Seasonal Allergies: No Past Medical History Surgery/Hospitalization HX: HYPOTHYROIDISM Surgeries: Yes Adenoidectomy, Tonsillectomy Respiratory: No Cardiac: No Neurological: No : Yes Last Menstrual Period: Jun 12, 2021 Reproductive Disorders: No Female Reproductive Disorders: Denies Sexually Transmitted Disease: No HIV/AIDS: No Genitourinary: No Gastrointestinal: Yes ( A BABY) Gastroesophageal Reflux Musculoskeletal: Yes Endocrine: Yes (Jm's thyroiditis, insulin resistant) Hypothyroidsim HEENT: No Cancer: No Psychosocial: Yes Anxiety, Depression Integumentary: Yes (HIVES/URTICARIA) Blood Disorders: No Family Medical History Cancer Cancer of colon Cataract Family history: Asthma Family history: Cardiovascular disease Family history: Diabetes mellitus Family history: Hypertension Family history: Thyroid disorder Heart disease No Family History of: Abdominal aortic aneurysm Mcnary's disease Alcoholism Aphasia Congenital heart disease Congestive heart failure Cystic fibrosis Dementia Dysphagia Family history: Allergy Family history: Alzheimer's disease Family history: Arthritis Family history: Breast disease Family history: Coronary thrombosis Family history: Gastrointestinal disease Family history: Glaucoma Family history: Osteoporosis Headache Hearing loss Hereditary disease History of - anemia History of - disorder History of - respiratory disease History of drug abuse Human immunodeficiency virus (HIV) seropositivity Hypercholesterolemia Infertile Kidney disease Malignant neoplasm of lung Myocardial infarction Parkinson's disease Prostate cancer Psychotic disorder Seizure disorder Stroke Tuberculosis Visual impairment Physical Exam Vital Signs Vital Signs - First Documented 08/10/21 19:46 Temp 37.0 Pulse 98 Resp 18 B/P (MAP) 104/65 (78) O2 Delivery Room Air Capillary Refill : Less Than 3 Seconds Height, Weight, BMI Height: 5'5.00" Weight: 180lbs. 7oz. 81.628486lk; 36.00 BMI Method:Stated General Appearance: No Apparent Distress, WD/WN, Other (DOES NOT APPEAR ILL OR TO BE IN ANY DISCOMFORT OR DISTRESS) HEENT: Normal ENT Inspection, Moist Mucous Membranes Neck: Normal Inspection Respiratory: Normal Breath Sounds, No Accessory Muscle Use, No Respiratory Distress Cardiovascular: Regular Rate, Rhythm, No Murmur Gastrointestinal: Non Tender, Soft Back: No CVA Tenderness Extremity: Normal Inspection, No Pedal Edema Neurologic/Psychiatric: Alert, Oriented x3, No Motor/Sensory Deficits, Normal Mood/Affect, care management coordinator II-XII Norm as Tested Skin: Normal Color, Warm/Dry Progress/Results/Core Measures Suspected Sepsis SIRS Temperature: Pulse: 98 Respiratory Rate: 18 Laboratory Tests 08/10/21 21:30: White Blood Count 11.7H Blood Pressure 104 /65 Mean: 78 Laboratory Tests 08/10/21 21:30: Creatinine 0.70, Platelet Count 298, Total Bilirubin 0.1 Results/Orders Lab Results Laboratory Tests Test 08/10/21 21:20 08/10/21 21:30 08/10/21 22:37 Range/Units Urine Color YELLOW Urine Clarity CLEAR Urine pH 6.0 5-9 Urine Specific [place] 1.025 H 1.016-1.022 Urine Protein NEGATIVE NEGATIVE Urine Glucose (UA) NEGATIVE NEGATIVE Urine Ketones NEGATIVE NEGATIVE Urine Nitrite NEGATIVE NEGATIVE Urine Bilirubin NEGATIVE NEGATIVE Urine Urobilinogen 0.2 < = 1.0 MG/DL Urine Leukocyte Esterase NEGATIVE NEGATIVE Urine RBC (Auto) NEGATIVE NEGATIVE Urine RBC NONE /HPF Urine WBC 0-2 /HPF Urine Squamous Epithelial Cells NONE /HPF Urine Renal Epithelial Cells NONE /HPF Urine Crystals NONE /LPF Urine Bacteria FEW H /HPF Urine Casts NONE /LPF Urine Mucus NEGATIVE /LPF Urine Culture Indicated NO White Blood Count 11.7 H 4.3-11.0 10^3/uL Red Blood Count 4.67 3.80-5.11 10^6/uL Hemoglobin 12.8 11.5-16.0 g/dL Hematocrit 42 35-52 % Mean Corpuscular Volume 89 80-99 fL Mean Corpuscular Hemoglobin 27 25-34 pg Mean Corpuscular Hemoglobin Concent 31 L 32-36 g/dL Red Cell Distribution Width 13.6 10.0-14.5 % Platelet Count 298 130-400 10^3/uL Mean Platelet Volume 9.0 9.0-12.2 fL Immature Granulocyte % (Auto) 0 % Neutrophils (%) (Auto) 69 42-75 % Lymphocytes (%) (Auto) 21 12-44 % Monocytes (%) (Auto) 9 0-12 % Eosinophils (%) (Auto) 0 0-10 % Basophils (%) (Auto) 0 0-10 % Neutrophils # (Auto) 8.0 H 1.8-7.8 10^3/uL Lymphocytes # (Auto) 2.5 1.0-4.0 10^3/uL Monocytes # (Auto) 1.1 H 0.0-1.0 10^3/uL Eosinophils # (Auto) 0.0 0.0-0.3 10^3/uL Basophils # (Auto) 0.0 0.0-0.1 10^3/uL Immature Granulocyte # (Auto) 0.1 0.0-0.1 10^3/uL Sodium Level 137 135-145 MMOL/L Potassium Level 3.6 3.6-5.0 MMOL/L Chloride Level 104 98-107 MMOL/L Carbon Dioxide Level 22 21-32 MMOL/L Anion Gap 11 5-14 MMOL/L Blood Urea Nitrogen 14 7-18 MG/DL Creatinine 0.70 0.60-1.30 MG/DL Estimat Glomerular Filtration Rate 108 BUN/Creatinine Ratio 20 Glucose Level 97 70-105 MG/DL Calcium Level 9.3 8.5-10.1 MG/DL Corrected Calcium 9.1 8.5-10.1 MG/DL Total Bilirubin 0.1 0.1-1.0 MG/DL Aspartate Amino Transf (AST/SGOT) 11 5-34 U/L Alanine Aminotransferase (ALT/SGPT) 13 0-55 U/L Alkaline Phosphatase 82 40-136 U/L Total Protein 7.5 6.4-8.2 GM/DL Albumin 4.2 3.2-4.5 GM/DL Human Chorionic Gonadotropin, Quant 481 H <5 MIU/ML Influenza Type A (RT-PCR) Not Detected Not Detecte Influenza Type B (RT-PCR) Not Detected Not Detecte SARS-CoV-2 RNA (RT-PCR) Not Detected Not Detecte My Orders Orders - GUILLERMINA BARNES DO Cbc With Automated Diff (08/10/21 20:05) Hcg,Quantitative (08/10/21 20:05) Ua Culture If Indicated (08/10/21 20:05) Abo Rh Type (08/10/21 20:05) Ed Iv/Invasive Line Start (08/10/21 20:10) Comprehensive Metabolic Panel (08/10/21 20:10) Ed Iv/Invasive Line Start (08/10/21 20:10) Lactated Ringers (Lr 1000 Ml Iv Solution (08/10/21 20:15) Covid 19 Inhouse Test (08/10/21 20:10) Influenza A And B By Pcr (08/10/21 20:10) Isolation Central Supply Req (08/10/21 20:10) Medications Given in ED Current Medications Medications Dose Ordered Sig/Shiraz Route Start Time Stop Time Status Last Admin Dose Admin Lactated Ringer's 1,000 ml @ 0 mls/hr Q0M ONCE IV 08/10/21 20:15 08/10/21 20:16 DC 08/10/21 21:47 999 MLS/HR Vital Signs/I&O 08/10/21 19:46 Temp 37.0 Pulse 98 Resp 18 B/P (MAP) 104/65 (78) O2 Delivery Room Air Capillary Refill : Less Than 3 Seconds Blood Pressure Mean: 78 Progress Note : Progress Note BLOOD TYPE IS A+ NO DIARRHEA NO VOMITING NO ABNORMAL VITALS NO BLEEDING OR PAIN/CRAMPING NO SYMPTOMS OF ANY KIND DURING ER STAY Departure Impression Primary Impression: Threatened in first trimester Additional Impression: Diarrhea Disposition: 01 HOME, SELF-CARE Condition: Stable Departure-Patient Inst. Referrals: EVERTON FLORES MD (PCP) Primary Care Physician [facility] (Family) Primary Care Physician Patient Instructions: Bleeding in Early (DC), Diarrhea in Adolescents and Adults Add. Discharge Instructions: INCREASE YOUR FLUID INTAKE--CLEAR LIQUIDS--WATER, BROTH, JELLO, GATORADE BRATS DIET--BANANAS, RICE, APPLESAUCE, TOAST, SALTINES TYLENOL NEEDED FOR PAIN NOTHING IN VAGINA--NO TAMPONS, DOUCHING OR INTERCOURSE FOLLOW UP WITH DR. FLORES IN 2-3 DAYS IF NO IMPROVEMENT All discharge instructions reviewed with patient and/or family. Voiced understanding. GUILLERMINA BARNES DO Aug 10, 2021 20:59
[2021-08-10 21:28] LABS: BILIRUBIN,URINE NEGATIVE (NEGATIVE); CLARITY,URINE CLEAR; COLOR,URINE YELLOW; GLUCOSE, URINE (UA) NEGATIVE (NEGATIVE); KETONES,URINE NEGATIVE (NEGATIVE); LEUKOCYTE ESTERASE ,URINE NEGATIVE (NEGATIVE); NITRITE,URINE NEGATIVE (NEGATIVE); PROTEIN,URINE NEGATIVE (NEGATIVE)
[2021-08-10 21:34] LABS: BACTERIA,URINE FEW /HPF; WBC,URINE 0-2 /HPF
[2021-08-10 21:40] LABS: BASOPHILS % (AUTO) 0 % (0-10); EOSINOPHILS % (AUTO) 0 % (0-10); HEMATOCRIT 42 % (35-52); HEMOGLOBIN 12.8 g/dL (11.5-16.0); LYMPHOCYTES # (AUTO) 2.5 10^3/uL (1.0-4.0); LYMPHOCYTES % (AUTO) 21 % (12-44); MEAN CORPUSCULAR HEMOGLOBIN 27 pg (25-34); MEAN CORPUSCULAR HGB CONC 31 g/dL (32-36); MEAN CORPUSCULAR VOLUME 89 fL (80-99); MONOCYTES # (AUTO) 1.1 10^3/uL (0.0-1.0); MONOCYTES % (AUTO) 9 % (0-12); NEUTROPHILS % (AUTO) 69 % (42-75); PLATELET COUNT 298 10^3/uL (130-400); WHITE BLOOD COUNT 11.7 10^3/uL (4.3-11.0)
[2021-08-10 21:49] LABS: ALBUMIN 4.2 GM/DL (3.2-4.5); POTASSIUM 3.6 MMOL/L (3.6-5.0)
[2021-08-10 21:50] LABS: CALCIUM 9.3 MG/DL (8.5-10.1)
[2021-08-10 21:51] LABS: TOTAL PROTEIN 7.5 GM/DL (6.4-8.2)
[2021-08-10 21:53] LABS: BILIRUBIN,TOTAL 0.1 MG/DL (0.1-1.0)
[2021-08-10 21:55] LABS: CREATININE SERUM 0.7 MG/DL (0.60-1.30)
[2021-08-10 23:30] VITALS: BP 104/65
== END 2021-08-10 23:30 | disposition home or self-care (01) ==
LOC: EDUNIT# 19:11 → ER 19:17
DX: O20.0 Threatened abortion (principal); R19.7 Diarrhea, unspecified; E03.9 Hypothyroidism, unspecified; F41.9 Anxiety disorder, unspecified; Z3A.08 8 weeks gestation of pregnancy; Z20.822 Contact with and (suspected) exposure to COVID-19; Z79.890 Hormone replacement therapy; Z79.899 Other long term (current) drug therapy
CPT/HCPCS: 36415; 80053; 81000; 84702; 85025; 86900; 86901; 87636

== ENCOUNTER → 2021-08-13 | Outpatient (CLI) | payer MEDICAID | LOC: LAB 15:02 | PROVIDERS: ATTEND Family Medicine | DX: O20.9 Hemorrhage in early pregnancy, unspecified (principal); Z3A.00 Weeks of gestation of pregnancy not specified | CPT/HCPCS: 36415; 84702 ==

== ENCOUNTER 2021-08-14 17:07 | Emergency (ER) | payer MEDICAID ==
[~2021-08-14] VITALS: Ht 165 cm; Wt 100.0 kg
--- OUTSIDE RECORDS SUMMARY | 2021-08-14 17:12 | XMS REPORT | Clinical Summary ---
Author Author [facility] Organization [facility] Address Unknown Phone Unavailable Care Team Providers Care Landmen Name Role Phone Jason Romero DO, Casey PCP Source Comments Some departments are not documenting in the electronic medical record. If you d o not see the information that you expected, contact Release of Information in [facility] [employer] Information Management department at [phone] for further assistan ce in locating additional records.[facility] Allergies No known active allergies Medications End [...] Talia Van MD Other 07/30/2021 Telephone Endocrinology, [place] [facility] Talia Van MD Other (reschedule) 06/25/2021 Telephone Endocrinology, [place] [facility] Talia Van MD Other (Outside lab) 06/11/2021 Telephone Endocrinology, [place] [facility] Talia Van MD Hypothyroidism, unspecified type 06/11/2021 Orders Only Endocrinology, [place] [facility] Talia Van MD Patient Reported Other 05/20/2021 Telephone Endocrinology, [place] [facility] from Last 3 Months [...] Phone Address Plan / Dates Group Medicaid [facility] MEDICAID [facility] [id number] 2020-P [address] [place] [address] Advance Directives Patient Retail Performance Specialist Explanation Type Date Recorded Advance Directive/DPOA Care Teams Start Date End Date Landmen Relationship Specialty 12/25/20 Gaurang Gomez DO PCP - General Internal [address] [place] [address]
--- NOTE | 2021-08-14 17:49 | ED Abdominal Pain ---
General Chief Complaint: OB < 20 WEEKS Stated Complaint: VAGINAL BLEEDING, 8-10 WKS PREG Nursing Triage Note: ARRIVED VIA AMB TO ROOM 07. STATES SHE HAS HAD VAGINAL BLEEDING X 2 DAYS ET HAD A HCG DONE YESTERDY. TODAY CONTINUES TO BLEED AND PASSED TISSUE WHICH SHE BROUGHT WITH HER. Source of Information: Patient Exam Limitations: No Limitations (STEVE ARELLANO APRN) History of Present Illness Date Seen by Provider: Aug 14, 2021 Time Seen by Provider: 17:30 Initial Comments I do you have a private vehicle with reports of vaginal bleeding that began on 08/10/2021. She is and estimates she would have been about 8 weeks . She had an hCG done yesterday which was only 583. Today she had some abdominal cramping and bleeding and passed some tissue which she brought to ER with her. Since passing that her cramping has subsided. Timing/Duration: 1-2 Days Severity/Quality: Moderate Location: Other Radiation: No Radiation Activities at Onset: None Associated Symptoms: Denies Symptoms (STEVE ARELLANO APRN) Allergies and Home Medications Allergies Coded Allergies: No Known Drug Allergies (Verified , 05/08/21) Patient Home Medication List Home Medication List Reviewed: Yes (STEVE ARELLANO APRN) Cetirizine HCl (Cetirizine HCl) 10 Mg Tablet, 10 MG PO DAILY Prescribed by: STEVE ARELLANO on 10/23/19 1131 Hydroxyzine HCl (Hydroxyzine HCl) 25 Mg Tablet, 25 MG PO TID PRN for ITCHING Prescribed by: STEVE ARELLANO on 10/23/19 1131 Levocetirizine Dihydrochloride (Levocetirizine Dihydrochloride) 5 Mg Tablet, 5 MG PO BID Prescribed by: STEVE ARELLANO on 06/18/202129 Levothyroxine Sodium (Levothyroxine 150 Mcg Tab) 150 Mcg Tablet, 1 EACH PO DAILY, (Reported) Entered as Reported by: OSMAN SANTANA on 12/24/13 175 Methylprednisolone (Methylprednisolone Dose Pack) 4 Mg Tab.ds.pk, 4 MG PO UD Prescribed by: FATEMEH SILVA on 06/06/20 1235 Methylprednisolone (Medrol) 4 Mg Tab.ds.pk, 4 MG PO UD Prescribed by: STEVE ARELLANO on 06/18/201954 Montelukast Sodium (Montelukast Sodium) 10 Mg Tablet, 10 MG PO DAILY Prescribed by: STEVE ARELLANO on 06/18/202134 Nitrofurantoin Macrocrystal (Nitrofurantoin) 100 Mg Capsule, 100 MG PO BID Prescribed by: RAMYA JAIMES on 05/07/211907 Norgestimate-Ethinyl Estradiol (Tri-Lo-Enedina Tablet) 1 Each Tablet, (Reported) Entered as Reported by: THOMAS TRACEY on 02/13/20 014 Prazosin HCl (Prazosin HCl) 2 Mg Capsule, (Reported) Entered as Reported by: THOMAS TRACEY on 02/13/20145 Prazosin HCl (Prazosin HCl) 5 Mg Capsule, (Reported) Entered as Reported by: THOMAS TRACEY on 02/13/20145 Prednisone (Prednisone) 20 Mg Tab, 40 MG PO DAILY Prescribed by: SNEHAL PRADO on 02/13/20 015 Tramadol HCl (Ultram) 50 Mg Tablet, 50 MG PO Q6H PRN for PAIN-MODERATE (5-7) Prescribed by: STEVE ARELLANO on 01/13/21 1517 Review of Systems Review of Systems Constitutional: see HPI; No chills, No fever EENTM: No Symptoms Reported Respiratory: No Symptoms Reported Cardiovascular: No Symptoms Reported Gastrointestinal: No Symptoms Reported Genitourinary: No Symptoms Reported Musculoskeletal: no symptoms reported Skin: no symptoms reported Psychiatric/Neurological: No Symptoms Reported Endocrine: No Symptoms Reported Hematologic/Lymphatic: No Symptoms Reported (STEVE ARELLANO APRN) Past Gnixutc-Lbjjie-Jbrjji Hx Immunizations Up To Date Tetanus Booster (TDap): Less than 5yrs PED Vaccines UTD: Yes First/Initial COVID19 Vaccinat: JANUARY 2021 Second COVID19 Vaccination Lucio: JANUARY 2021 (STEVE ARELLANO APRN) Seasonal Allergies Seasonal Allergies: No (STEVE ARELLANO APRN) Past Medical History Surgery/Hospitalization HX: HYPOTHYROIDISM Surgeries: Yes Adenoidectomy, Tonsillectomy Respiratory: No Cardiac: No Neurological: No Reproductive Disorders: No Female Reproductive Disorders: Denies Sexually Transmitted Disease: No HIV/AIDS: No Genitourinary: No Gastrointestinal: Yes ( A BABY) Gastroesophageal Reflux Musculoskeletal: Yes Endocrine: Yes (Jm's thyroiditis, insulin resistant) Hypothyroidsim HEENT: No Cancer: No Psychosocial: Yes Anxiety, Depression Integumentary: Yes (OSVALDO/URTICARIA) Blood Disorders: No (STEVE ARELLANO APRN) Family Medical History Cancer Cancer of colon Cataract Family history: Asthma Family history: Cardiovascular disease Family history: Diabetes mellitus Family history: Hypertension Family history: Thyroid disorder Heart disease No Family History of: Abdominal aortic aneurysm Houghton's disease Alcoholism Aphasia Congenital heart disease Congestive heart failure Cystic fibrosis Dementia Dysphagia Family history: Allergy Family history: Alzheimer's disease Family history: Arthritis Family history: Breast disease Family history: Coronary thrombosis Family history: Gastrointestinal disease Family history: Glaucoma Family history: Osteoporosis Headache Hearing loss Hereditary disease History of - anemia History of - disorder History of - respiratory disease History of drug abuse Human immunodeficiency virus (HIV) seropositivity Hypercholesterolemia Infertile Kidney disease Malignant neoplasm of lung Myocardial infarction Parkinson's disease Prostate cancer Psychotic disorder Seizure disorder Stroke Tuberculosis Visual impairment Physical Exam Vital Signs Vital Signs - First Documented 08/14/21 17:15 Temp 36.3 Pulse 81 Resp 16 B/P (MAP) 115/74 (88) Pulse Ox 100 O2 Delivery Room Air (MOLLY,GUILLERMINA K DO) Vital Signs Capillary Refill : Less Than 3 Seconds (STEVE ARELLANO APRN) Height/Weight/BMI Height: 5'5.00" Weight: 180lbs. 7oz. 81.205757hc; 36.00 BMI Method:Stated General Appearance: WD/WN, no apparent distress HEENT: PERRL/EOMI, normal ENT inspection Respiratory: no respiratory distress, no accessory muscle use Gastrointestinal: normal bowel sounds, non tender, soft Genital/Rectal: other (Pelvic exam done with Doris at the bedside. Minor amount of clotted blood in the vaginal vault without hemorrhage or active bleeding coming from the cervical os.) Extremities: normal range of motion, non-tender Neurologic/Psychiatric: alert, normal mood/affect, oriented x 3 Skin: normal color, warm/dry (STEVE ARELLANO APRN) Progress/Results/Core Measures Results/Orders Lab Results Laboratory Tests Test 08/14/21 17:51 Range/Units White Blood Count 10.6 4.3-11.0 10^3/uL Red Blood Count 4.46 3.80-5.11 10^6/uL Hemoglobin 12.3 11.5-16.0 g/dL Hematocrit 39 35-52 % Mean Corpuscular Volume 87 80-99 fL Mean Corpuscular Hemoglobin 28 25-34 pg Mean Corpuscular Hemoglobin Concent 32 32-36 g/dL Red Cell Distribution Width 13.4 10.0-14.5 % Platelet Count 299 130-400 10^3/uL Mean Platelet Volume 8.9 L 9.0-12.2 fL Immature Granulocyte % (Auto) 0 % Neutrophils (%) (Auto) 70 42-75 % Lymphocytes (%) (Auto) 21 12-44 % Monocytes (%) (Auto) 9 0-12 % Eosinophils (%) (Auto) 0 0-10 % Basophils (%) (Auto) 0 0-10 % Neutrophils # (Auto) 7.4 1.8-7.8 10^3/uL Lymphocytes # (Auto) 2.3 1.0-4.0 10^3/uL Monocytes # (Auto) 0.9 0.0-1.0 10^3/uL Eosinophils # (Auto) 0.0 0.0-0.3 10^3/uL Basophils # (Auto) 0.0 0.0-0.1 10^3/uL Immature Granulocyte # (Auto) 0.0 0.0-0.1 10^3/uL Human Chorionic Gonadotropin, Quant 331 H <5 MIU/ML Serum Test, Qualitative POSITIVE NEGATIVE (GUILLERMINA BARNES DO) Vital Signs/I&O 08/14/21 08/14/21 17:15 19:13 Temp 36.3 Pulse 81 74 Resp 16 16 B/P (MAP) 115/74 (88) 110/66 Pulse Ox 100 100 O2 Delivery Room Air Room Air (GUILLERMINA BARNES DO) Blood Pressure Mean: 88 Departure Impression Primary Impression: Spontaneous miscarriage Disposition: 01 HOME, SELF-CARE Condition: Stable Departure-Patient Inst. Decision time for Depature: 19:07 (STEVE RAELLANO APRN) Referrals: EVERTON FLORES MD (PCP/Family) Primary Care Physician Patient Instructions: Miscarriage (DC) Add. Discharge Instructions: 1. Call Dr. Flores tomorrow to make an appointment to be seen. Your hCG level today had fallen to 331. Return to ER for any heavy bleeding or other symptoms. All discharge instructions reviewed with patient and/or family. Voiced under standing. ATTENDING PHYSICIAN NOTE: I WAS PHYSICALLY PRESENT ER PHYSICIAN WHEN THIS PATIENT WAS IN ER, BUT I WAS NOT INVOLVED IN ANY DECISION MAKING OR ANY CARE OF THIS PATIENT. (GUILLERMINA BARNES DO) Copy Copies To 1: EVERTON FLORES MD, PETER J APRN Aug 14, 2021 17:48 GUILLERMINA BARNES DO Aug 15, 2021 03:18
[2021-08-14 17:57] LABS: BASOPHILS % (AUTO) 0 % (0-10); EOSINOPHILS % (AUTO) 0 % (0-10); HEMATOCRIT 39 % (35-52); HEMOGLOBIN 12.3 g/dL (11.5-16.0); LYMPHOCYTES # (AUTO) 2.3 10^3/uL (1.0-4.0); LYMPHOCYTES % (AUTO) 21 % (12-44); MEAN CORPUSCULAR HEMOGLOBIN 28 pg (25-34); MEAN CORPUSCULAR HGB CONC 32 g/dL (32-36); MEAN CORPUSCULAR VOLUME 87 fL (80-99); MEAN PLATELET VOLUME 8.9 fL (9.0-12.2); MONOCYTES # (AUTO) 0.9 10^3/uL (0.0-1.0); MONOCYTES % (AUTO) 9 % (0-12); NEUTROPHILS # (AUTO) 7.4 10^3/uL (1.8-7.8); NEUTROPHILS % (AUTO) 70 % (42-75); PLATELET COUNT 299 10^3/uL (130-400); WHITE BLOOD COUNT 10.6 10^3/uL (4.3-11.0)
[2021-08-14 19:13] VITALS: BP 110/66
== END 2021-08-14 19:13 | disposition home or self-care (01) ==
LOC: EDUNIT# 17:07 → ER 17:09
DX: O03.9 Complete or unspecified spontaneous abortion without complication (principal); E03.9 Hypothyroidism, unspecified; F41.9 Anxiety disorder, unspecified; Z79.890 Hormone replacement therapy; Z79.899 Other long term (current) drug therapy
CPT/HCPCS: 36415; 84702; 84703; 85025; 86900; 86901

== ENCOUNTER 2021-11-13 19:01 | Emergency (ER) | payer MEDICAID ==
[~2021-11-13] VITALS: Ht 165.1 cm; Wt 100.0 kg
[2021-11-13] MEDS ORDERED: NS IV 1000 ML 1,000 ML IV SCH (20:15)
[2021-11-13] MEDS ORDERED: ONDANSETRON 4 MG/2 ML (SDV) Z0FRAN IVP ONE (20:15)
[2021-11-13 20:59] LABS: BASOPHILS % (AUTO) 0 % (0-10); EOSINOPHILS % (AUTO) 0 % (0-10); HEMATOCRIT 39 % (35-52); HEMOGLOBIN 12.7 g/dL (11.5-16.0); LYMPHOCYTES # (AUTO) 2.4 10^3/uL (1.0-4.0); LYMPHOCYTES % (AUTO) 21 % (12-44); MEAN CORPUSCULAR HEMOGLOBIN 28 pg (25-34); MEAN CORPUSCULAR HGB CONC 32 g/dL (32-36); MEAN CORPUSCULAR VOLUME 86 fL (80-99); MEAN PLATELET VOLUME 9.5 fL (9.0-12.2); MONOCYTES # (AUTO) 0.9 10^3/uL (0.0-1.0); MONOCYTES % (AUTO) 8 % (0-12); NEUTROPHILS # (AUTO) 8.1 10^3/uL (1.8-7.8); NEUTROPHILS % (AUTO) 71 % (42-75); PLATELET COUNT 282 10^3/uL (130-400); WHITE BLOOD COUNT 11.4 10^3/uL (4.3-11.0)
[2021-11-13 21:03] LABS: ALBUMIN 4.1 GM/DL (3.2-4.5); POTASSIUM 3.7 MMOL/L (3.6-5.0)
[2021-11-13 21:04] LABS: CALCIUM 9.4 MG/DL (8.5-10.1)
[2021-11-13 21:07] LABS: BILIRUBIN,TOTAL 0.3 MG/DL (0.1-1.0)
[2021-11-13 21:09] LABS: CREATININE SERUM 0.61 MG/DL (0.60-1.30)
[2021-11-13 21:32] LABS: BILIRUBIN,URINE NEGATIVE (NEGATIVE); CLARITY,URINE CLEAR; COLOR,URINE YELLOW; GLUCOSE, URINE (UA) NEGATIVE (NEGATIVE); KETONES,URINE NEGATIVE (NEGATIVE); LEUKOCYTE ESTERASE ,URINE TRACE (NEGATIVE); NITRITE,URINE NEGATIVE (NEGATIVE); PROTEIN,URINE NEGATIVE (NEGATIVE)
[2021-11-13 21:55] LABS: BACTERIA,URINE MODERATE /HPF; SQUAMOUS EPITHELIAL CELL,UR 0-2 /HPF; WBC,URINE 0-2 /HPF
[2021-11-13] MEDS ORDERED: CEPHALEXIN 250 MG (KEFLEX) CAP PO STA (21:58)
--- NOTE | 2021-11-13 22:10 | ED General ---
General Chief Complaint: General Problems/Pain Stated Complaint: DIZZINESS, WEAKNESS Nursing Triage Note: Pt arrival to er with complaint of weakness x3 days. Denies N/V/D or other complaint except headache. Pt is 10 weeks . Pt's OB is aware per patient. History of Present Illness Date Seen by Provider: Nov 13, 2021 Time Seen by Provider: 19:32 Initial Comments 21-year-old female who is G2, L0, with MAULIK of June 07, 2022, is here with complaints of intermittent lightheadedness which has been going on for the past 2 to 3 days. Pt has assocviated mild nausea with it. Patient has been eating and drinking enough water. Denies shortness of breath, chest pain, headache, blurry vision, diarrhea, vomiting, chest pain, abdominal pain, vaginal bleeding or discharge, dysuria, hematuria. Allergies and Home Medications Allergies Coded Allergies: No Known Drug Allergies (Verified , 05/08/21) Patient Home Medication List Home Medication List Reviewed: Yes Cetirizine HCl (Cetirizine HCl) 10 Mg Tablet, 10 MG PO DAILY Prescribed by: STEVE ARELLANO on 10/23/19 113 Hydroxyzine HCl (Hydroxyzine HCl) 25 Mg Tablet, 25 MG PO TID PRN for ITCHING Prescribed by: STEVE ARELLANO on 10/23/19 113 Levocetirizine Dihydrochloride (Levocetirizine Dihydrochloride) 5 Mg Tablet, 5 MG PO BID Prescribed by: STEVE ARELLANO on 06/18/202129 Levothyroxine Sodium (Levothyroxine 150 Mcg Tab) 150 Mcg Tablet, 1 EACH PO DAILY, (Reported) Entered as Reported by: OSMAN SANTANA on 12/24/13 1758 Methylprednisolone (Methylprednisolone Dose Pack) 4 Mg Tab.ds.pk, 4 MG PO UD Prescribed by: FATEMEH SILVA on 06/06/20 1235 Methylprednisolone (Medrol) 4 Mg Tab.ds.pk, 4 MG PO UD Prescribed by: STEVE ARELLANO on 06/18/201954 Montelukast Sodium (Montelukast Sodium) 10 Mg Tablet, 10 MG PO DAILY Prescribed by: STEVE ARELLANO on 06/18/202134 Nitrofurantoin Macrocrystal (Nitrofurantoin) 100 Mg Capsule, 100 MG PO BID Prescribed by: RAMYA JAIMES on 05/07/21 190 Norgestimate-Ethinyl Estradiol (Tri-Lo-Enedina Tablet) 1 Each Tablet, (Reported) Entered as Reported by: THOMAS TRACEY on 02/13/20145 Prazosin HCl (Prazosin HCl) 2 Mg Capsule, (Reported) Entered as Reported by: THOMAS TRACEY on 02/13/20145 Prazosin HCl (Prazosin HCl) 5 Mg Capsule, (Reported) Entered as Reported by: THOMAS TRACEY on 02/13/20145 Prednisone (Prednisone) 20 Mg Tab, 40 MG PO DAILY Prescribed by: SNEHAL PRADO on 02/13/20155 Tramadol HCl (Ultram) 50 Mg Tablet, 50 MG PO Q6H PRN for PAIN-MODERATE (5-7) Prescribed by: STEVE ARELLANO on 01/13/21 151 Review of Systems Review of Systems Constitutional: no symptoms reported, dizziness EENTM: no symptoms reported Respiratory: no symptoms reported Cardiovascular: no symptoms reported Gastrointestinal: no symptoms reported Genitourinary: no symptoms reported : Yes Expected Date of Delivery: Jun 07, 2022 Musculoskeletal: no symptoms reported Skin: no symptoms reported Psychiatric/Neurological: No Symptoms Reported Hematologic/Lymphatic: No Symptoms Reported Immunological/Allergic: no symptoms reported Past Rwfgwdh-Vaacma-Oymctd Hx Patient Social History Tobacco Use?: No Use of E-Cig and/or Vaping dev: No Substance use?: No Alcohol Use?: No Pt feels they are or have been: No Immunizations Up To Date Tetanus Booster (TDap): Less than 5yrs PED Vaccines UTD: Yes Influenza Vaccine Up-to-Date: Yes; Up-to-Date First/Initial COVID19 Vaccinat: JANUARY 2021 Second COVID19 Vaccination Lucio: JANUARY 2021 Third COVID19 Vaccination Date: 06/10/2021 Seasonal Allergies Seasonal Allergies: No Past Medical History Surgery/Hospitalization HX: HYPOTHYROIDISM Surgeries: Yes Adenoidectomy, Tonsillectomy Respiratory: No Cardiac: No Neurological: No Last Menstrual Period: Jun 12, 2021 Reproductive Disorders: No Female Reproductive Disorders: Denies Sexually Transmitted Disease: No HIV/AIDS: No Genitourinary: No Gastrointestinal: Yes ( A BABY) Gastroesophageal Reflux Musculoskeletal: Yes Endocrine: Yes (Jm's thyroiditis, insulin resistant) Hypothyroidsim HEENT: No Cancer: No Psychosocial: Yes Anxiety, Depression Integumentary: Yes (HIVES/URTICARIA) Blood Disorders: No Family Medical History Cancer Cancer of colon Cataract Family history: Asthma Family history: Cardiovascular disease Family history: Diabetes mellitus Family history: Hypertension Family history: Thyroid disorder Heart disease No Family History of: Abdominal aortic aneurysm [place]'s disease Alcoholism Aphasia Congenital heart disease Congestive heart failure Cystic fibrosis Dementia Dysphagia Family history: Allergy Family history: Alzheimer's disease Family history: Arthritis Family history: Breast disease Family history: Coronary thrombosis Family history: Gastrointestinal disease Family history: Glaucoma Family history: Osteoporosis Headache Hearing loss Hereditary disease History of - anemia History of - disorder History of - respiratory disease History of drug abuse Human immunodeficiency virus (HIV) seropositivity Hypercholesterolemia Infertile Kidney disease Malignant neoplasm of lung Myocardial infarction Parkinson's disease Prostate cancer Psychotic disorder Seizure disorder Stroke Tuberculosis Visual impairment Physical Exam Vital Signs Vital Signs - First Documented 11/13/21 19:29 Temp 36.4 Pulse 77 Resp 16 Pulse Ox 98 O2 Delivery Room Air Capillary Refill : Less Than 3 Seconds Height, Weight, BMI Height: 5'5.00" Weight: 180lbs. 7oz. 81.752611gr; 36.00 BMI Method:Stated General Appearance: No Apparent Distress, WD/WN HEENT: PERRL/EOMI, TMs Normal, Pharynx Normal Neck: Full Range of Motion, Normal Inspection, Non Tender Respiratory: Chest Non Tender, Lungs Clear, Normal Breath Sounds Cardiovascular: Regular Rate, Rhythm, No Edema Gastrointestinal: Normal Bowel Sounds, Non Tender, Soft Neurologic/Psychiatric: Alert, Oriented x3, Normal Mood/Affect Skin: Normal Color Lymphatic: No Adenopathy Progress/Results/Core Measures Suspected Sepsis SIRS Temperature: Pulse: 77 Respiratory Rate: 16 Laboratory Tests 11/13/21 20:35: White Blood Count 11.4H Blood Pressure / Mean: Laboratory Tests 11/13/21 20:35: Creatinine 0.61, Platelet Count 282, Total Bilirubin 0.3 Results/Orders Lab Results Laboratory Tests Test 11/13/21 20:35 Range/Units White Blood Count 11.4 H 4.3-11.0 10^3/uL Red Blood Count 4.57 3.80-5.11 10^6/uL Hemoglobin 12.7 11.5-16.0 g/dL Hematocrit 39 35-52 % Mean Corpuscular Volume 86 80-99 fL Mean Corpuscular Hemoglobin 28 25-34 pg Mean Corpuscular Hemoglobin Concent 32 32-36 g/dL Red Cell Distribution Width 13.6 10.0-14.5 % Platelet Count 282 130-400 10^3/uL Mean Platelet Volume 9.5 9.0-12.2 fL Immature Granulocyte % (Auto) 0 % Neutrophils (%) (Auto) 71 42-75 % Lymphocytes (%) (Auto) 21 12-44 % Monocytes (%) (Auto) 8 0-12 % Eosinophils (%) (Auto) 0 0-10 % Basophils (%) (Auto) 0 0-10 % Neutrophils # (Auto) 8.1 H 1.8-7.8 10^3/uL Lymphocytes # (Auto) 2.4 1.0-4.0 10^3/uL Monocytes # (Auto) 0.9 0.0-1.0 10^3/uL Eosinophils # (Auto) 0.0 0.0-0.3 10^3/uL Basophils # (Auto) 0.0 0.0-0.1 10^3/uL Immature Granulocyte # (Auto) 0.0 0.0-0.1 10^3/uL Urine Color YELLOW Urine Clarity CLEAR Urine pH 7.0 5-9 Urine Specific [place] 1.010 L 1.016-1.022 Urine Protein NEGATIVE NEGATIVE Urine Glucose (UA) NEGATIVE NEGATIVE Urine Ketones NEGATIVE NEGATIVE Urine Nitrite NEGATIVE NEGATIVE Urine Bilirubin NEGATIVE NEGATIVE Urine Urobilinogen 0.2 < = 1.0 MG/DL Urine Leukocyte Esterase TRACE H NEGATIVE Urine RBC (Auto) NEGATIVE NEGATIVE Urine RBC NONE /HPF Urine WBC 0-2 /HPF Urine Squamous Epithelial Cells 0-2 /HPF Urine Renal Epithelial Cells NONE /HPF Urine Crystals NONE /LPF Urine Bacteria MODERATE H /HPF Urine Casts NONE /LPF Urine Mucus NEGATIVE /LPF Urine Culture Indicated NO Sodium Level 137 135-145 MMOL/L Potassium Level 3.7 3.6-5.0 MMOL/L Chloride Level 103 98-107 MMOL/L Carbon Dioxide Level 20 L 21-32 MMOL/L Anion Gap 14 5-14 MMOL/L Blood Urea Nitrogen 6 L 7-18 MG/DL Creatinine 0.61 0.60-1.30 MG/DL Estimat Glomerular Filtration Rate 131 BUN/Creatinine Ratio 10 Glucose Level 83 70-105 MG/DL Calcium Level 9.4 8.5-10.1 MG/DL Corrected Calcium 9.3 8.5-10.1 MG/DL Total Bilirubin 0.3 0.1-1.0 MG/DL Aspartate Amino Transf (AST/SGOT) 11 5-34 U/L Alanine Aminotransferase (ALT/SGPT) 12 0-55 U/L Alkaline Phosphatase 71 40-136 U/L Total Protein 7.0 6.4-8.2 GM/DL Albumin 4.1 3.2-4.5 GM/DL My Orders Orders - CHRISTINA VIEIRA MD Ed Iv/Invasive Line Start (11/13/21 20:04) Ns Iv 1000 Ml (Sodium Chloride 0.9%) (11/13/21 20:15) Ondansetron Injection (Zofran Injectio (11/13/21 20:15) Cbc With Automated Diff (11/13/21 20:05) Comprehensive Metabolic Panel (11/13/21 20:05) Ua Culture If Indicated (11/13/21 21:02) Cephalexin Capsule (Keflex Capsule) (11/13/21 21:58) Medications Given in ED Current Medications Medications Dose Ordered Sig/Shiraz Route Start Time Stop Time Status Last Admin Dose Admin Ondansetron HCl 4 mg ONCE ONCE IVP 11/13/21 20:15 11/13/21 20:16 DC 11/13/21 20:44 4 MG Vital Signs/I&O 11/13/21 19:29 Temp 36.4 Pulse 77 Resp 16 B/P (MAP) Pulse Ox 98 O2 Delivery Room Air Capillary Refill : Less Than 3 Seconds Progress Note : Progress Note 1. DIZZINESS: UTI: - LAbs shows a borderline elevated WBC with a very mild left shift. UA is positive for leukoesterase bacteria. -Keflex 500 mg twice daily for 5 days with first tab stat in ER. -Advised 6 mini meals versus 3 big meals, continuing to keep hydrated with at least 8 glasses of water a day. -Follow-up with UROGYNAECOLOGIST within the next 2 to 3 days. - NS IVF bolus STAT in ER - Zofran 4mg iv STAT -The patient was seen in the ED, and treated appropriately to presentation at a specific point in time. Patient is informed that there is a possibility that disease and illness can evolve and change in acuity rapidly or slowly after patient is discharged from the ER. Precautionary advice given to the patient for immediate return to ER if symptoms worsen or do not resolve, and to seek emergency care sooner rather than later. Pt also advised on the importance of PCP follow up and compliance with management and follow up plan. Pt verbally expressed understanding. Departure Impression Primary Impression: UTI (urinary tract infection) Qualified Codes: N30.00 - Acute cystitis without hematuria Additional Impression: Light headed Disposition: 01 HOME, SELF-CARE Condition: Stable Departure-Patient Inst. Referrals: EVERTON FLORES MD (PCP/Family) Primary Care Physician Patient Instructions: Urinary Tract Infection, Adult (DC), Asymptomatic Bacteriuria, Dizziness, Nonvertigo, (DC) Add. Discharge Instructions: -Keflex 500 mg twice daily for 5 days with first tab stat in ER. -Advised 6 mini meals versus 3 big meals, continuing to keep hydrated with at least 8 glasses of water a day. -Follow-up with UROGYNAECOLOGIST within the next 2 to 3 days. -The patient was seen in the ED, and treated appropriately to presentation at a specific point in time. Patient is informed that there is a possibility that disease and illness can evolve and change in acuity rapidly or slowly after patient is discharged from the ER. Precautionary advice given to the patient for immediate return to ER if symptoms worsen or do not resolve, and to seek emergency care sooner rather than later. Pt also advised on the importance of PC P follow up and compliance with management and follow up plan. Pt verbally expressed understanding. All discharge instructions reviewed with patient and/or family. Voiced understanding. Scripts Cephalexin (Cephalexin) 500 Mg Tablet 500 MG PO BID for 5 Days, #10 TAB Prov: CHRISTINA VIEIRA MD 11/13/21 CHRISTINA VIEIRA MD Nov 13, 2021 22:10
[2021-11-13] MEDS ORDERED: CEPH500T PO (22:12)
[2021-11-13 22:44] VITALS: BP 104/54
== END 2021-11-13 22:44 | disposition home or self-care (01) ==
LOC: EDUNIT# 19:01 → ER 19:03
DX: O23.41 Unspecified infection of urinary tract in pregnancy, first trimester (principal); O26.891 Other specified pregnancy related conditions, first trimester; R42 Dizziness and giddiness; Z3A.10 10 weeks gestation of pregnancy
CPT/HCPCS: 36415; 80053; 81000; 85025

== ENCOUNTER 2021-11-20 05:23 | Emergency (ER) | payer MEDICAID ==
[~2021-11-20] VITALS: Ht 165.1 cm; Wt 95.2 kg
[~2021-11-20 05:23] MED LIST changes: +CEPH500T PO
[2021-11-20 06:11] LABS: BASOPHILS % (AUTO) 0 % (0-10); EOSINOPHILS % (AUTO) 0 % (0-10); HEMATOCRIT 38 % (35-52); HEMOGLOBIN 13.1 g/dL (11.5-16.0); LYMPHOCYTES # (AUTO) 2.4 10^3/uL (1.0-4.0); LYMPHOCYTES % (AUTO) 22 % (12-44); MEAN CORPUSCULAR HEMOGLOBIN 29 pg (25-34); MEAN CORPUSCULAR HGB CONC 34 g/dL (32-36); MEAN CORPUSCULAR VOLUME 86 fL (80-99); MEAN PLATELET VOLUME 10.1 fL (9.0-12.2); MONOCYTES # (AUTO) 0.9 10^3/uL (0.0-1.0); MONOCYTES % (AUTO) 9 % (0-12); NEUTROPHILS # (AUTO) 7.5 10^3/uL (1.8-7.8); NEUTROPHILS % (AUTO) 69 % (42-75); PLATELET COUNT 295 10^3/uL (130-400); WHITE BLOOD COUNT 10.9 10^3/uL (4.3-11.0)
--- NOTE | 2021-11-20 06:21 | ED GU-Female ---
General Chief Complaint: OB < 20 WEEKS Stated Complaint: 12 WKS PREG,VAG BLEEDING History of Present Illness Date Seen by Provider: Nov 20, 2021 Time Seen by Provider: 05:33 Initial Comments 21-year-old female who is G2, L0, with MAULIK of June 07, 2022, is here with complaints of vaginal bleeding which began today morning, 1 saitary napkin full, and one clot. Pt had an OB appointment yesterday where she had an ultrasound which was normal. Patient still feels movement. Patient has mild muscle cramps in her pelvic area. Denies nausea and vomiting, fever, dysuria, hematuria. Patient was just recently in the ER 3 days ago with complaints of dizziness and was diagnosed with UTI (CHRISTINA VIEIRA MD) Allergies and Home Medications Allergies Coded Allergies: No Known Drug Allergies (Verified , 05/08/21) Patient Home Medication List Home Medication List Reviewed: Yes (CHRISTINA VIEIRA MD) Home Medication List Reviewed: Yes (KEITH MAS) Cephalexin (Cephalexin) 500 Mg Tablet, 500 MG PO BID Prescribed by: CHRISTINA VIEIRA MD on 11/13/21 2212 Cetirizine HCl (Cetirizine HCl) 10 Mg Tablet, 10 MG PO DAILY Prescribed by: STEVE ARELLANO on 10/23/19 113 Hydroxyzine HCl (Hydroxyzine HCl) 25 Mg Tablet, 25 MG PO TID PRN for ITCHING Prescribed by: STEVE ARELLANO on 10/23/19 113 Levocetirizine Dihydrochloride (Levocetirizine Dihydrochloride) 5 Mg Tablet, 5 MG PO BID Prescribed by: STEVE ARELLANO on 06/18/202129 Levothyroxine Sodium (Levothyroxine 150 Mcg Tab) 150 Mcg Tablet, 1 EACH PO DAILY, (Reported) Entered as Reported by: OSMAN SANTANA on 12/24/13 1758 Methylprednisolone (Methylprednisolone Dose Pack) 4 Mg Tab.ds.pk, 4 MG PO UD Prescribed by: FATEMEH SILVA on 06/06/20 1235 Methylprednisolone (Medrol) 4 Mg Tab.ds.pk, 4 MG PO UD Prescribed by: STEVE ARELLANO on 06/18/20 1955 Montelukast Sodium (Montelukast Sodium) 10 Mg Tablet, 10 MG PO DAILY Prescribed by: STEVE ARELLANO on 06/18/202134 Nitrofurantoin Macrocrystal (Nitrofurantoin) 100 Mg Capsule, 100 MG PO BID Prescribed by: RAMYA JAIMES on 05/07/211907 Norgestimate-Ethinyl Estradiol (Tri-Lo-Enedina Tablet) 1 Each Tablet, (Reported) Entered as Reported by: THOMAS TRACEY on 02/13/20 014 Prazosin HCl (Prazosin HCl) 2 Mg Capsule, (Reported) Entered as Reported by: THOMAS TRACEY on 02/13/20145 Prazosin HCl (Prazosin HCl) 5 Mg Capsule, (Reported) Entered as Reported by: THOMAS TRACEY on 02/13/20 014 Prednisone (Prednisone) 20 Mg Tab, 40 MG PO DAILY Prescribed by: SNEHAL PRADO on 02/13/20 015 Tramadol HCl (Ultram) 50 Mg Tablet, 50 MG PO Q6H PRN for PAIN-MODERATE (5-7) Prescribed by: STEVE ARELLANO on 01/13/21 1517 Review of Systems Review of Systems Constitutional: no symptoms reported EENTM: no symptoms reported Respiratory: no symptoms reported Cardiovascular: no symptoms reported Gastrointestinal: no symptoms reported Genitourinary: other (vaginal bleeding) : Yes Skin: no symptoms reported Psychiatric/Neurological: No Symptoms Reported Endocrine: No Symptoms Reported Hematologic/Lymphatic: No Symptoms Reported (CHRISTINA VIEIRA MD) Past Xofilfb-Mcudtc-Zoqfwa Hx Immunizations Up To Date Tetanus Booster (TDap): Less than 5yrs PED Vaccines UTD: Yes First/Initial COVID19 Vaccinat: JANUARY 2021 Second COVID19 Vaccination Lucio: JANUARY 2021 Third COVID19 Vaccination Date: 06/10/2021 (CHRISTINA VIEIRA MD) Seasonal Allergies Seasonal Allergies: No (CHRISTINA VIEIRA MD) Past Medical History Surgery/Hospitalization HX: HYPOTHYROIDISM Surgeries: Yes Adenoidectomy, Tonsillectomy Respiratory: No Cardiac: No Neurological: No Reproductive Disorders: No Female Reproductive Disorders: Denies Sexually Transmitted Disease: No HIV/AIDS: No Genitourinary: No Gastrointestinal: Yes ( A BABY) Gastroesophageal Reflux Musculoskeletal: Yes Endocrine: Yes (Jm's thyroiditis, insulin resistant) Hypothyroidsim HEENT: No Cancer: No Psychosocial: Yes Anxiety, Depression Integumentary: Yes (HIVES/URTICARIA) Blood Disorders: No (CHRISTINA VIEIRA MD) Family Medical History Cancer Cancer of colon Cataract Family history: Asthma Family history: Cardiovascular disease Family history: Diabetes mellitus Family history: Hypertension Family history: Thyroid disorder Heart disease No Family History of: Abdominal aortic aneurysm [place]'s disease Alcoholism Aphasia Congenital heart disease Congestive heart failure Cystic fibrosis Dementia Dysphagia Family history: Allergy Family history: Alzheimer's disease Family history: Arthritis Family history: Breast disease Family history: Coronary thrombosis Family history: Gastrointestinal disease Family history: Glaucoma Family history: Osteoporosis Headache Hearing loss Hereditary disease History of - anemia History of - disorder History of - respiratory disease History of drug abuse Human immunodeficiency virus (HIV) seropositivity Hypercholesterolemia Infertile Kidney disease Malignant neoplasm of lung Myocardial infarction Parkinson's disease Prostate cancer Psychotic disorder Seizure disorder Stroke Tuberculosis Visual impairment Physical Exam Vital Signs Vital Signs - First Documented 11/20/21 05:45 Temp 36.3 Pulse 83 Resp 20 B/P (MAP) 103/69 (80) Pulse Ox 100 O2 Delivery Room Air (KEITH MAS) Vital Signs Capillary Refill : (CHRISTINA VIEIRA MD) Height, Weight, BMI Height: 5'5.00" Weight: 180lbs. 7oz. 81.410413yn; 36.00 BMI Method:Stated General Appearance: WD/WN, no apparent distress HEENT: PERRL/EOMI Cardiovascular: regular rate, rhythm Respiratory: chest non-tender, lungs clear, normal breath sounds Gastrointestinal: normal bowel sounds, non tender, soft Pelvic: normal external exam, vaginal bleeding Back: normal inspection, no CVA tenderness Neurologic/Psychiatric: alert, normal mood/affect, oriented x 3 Skin: normal color (CHRISTINA VIEIRA MD) Progress/Results/Core Measures Suspected Sepsis SIRS Temperature: Pulse: Respiratory Rate: Laboratory Tests 11/20/21 05:50: Blood Pressure / Mean: Laboratory Tests 11/20/21 05:50: (CHRISTINA VIEIRA MD) Results/Orders Lab Results Laboratory Tests Test 11/20/21 05:50 Range/Units White Blood Count 10.9 4.3-11.0 10^3/uL Red Blood Count 4.47 3.80-5.11 10^6/uL Hemoglobin 13.1 11.5-16.0 g/dL Hematocrit 38 35-52 % Mean Corpuscular Volume 86 80-99 fL Mean Corpuscular Hemoglobin 29 25-34 pg Mean Corpuscular Hemoglobin Concent 34 32-36 g/dL Red Cell Distribution Width 13.7 10.0-14.5 % Platelet Count 295 130-400 10^3/uL Mean Platelet Volume 10.1 9.0-12.2 fL Immature Granulocyte % (Auto) 0 % Neutrophils (%) (Auto) 69 42-75 % Lymphocytes (%) (Auto) 22 12-44 % Monocytes (%) (Auto) 9 0-12 % Eosinophils (%) (Auto) 0 0-10 % Basophils (%) (Auto) 0 0-10 % Neutrophils # (Auto) 7.5 1.8-7.8 10^3/uL Lymphocytes # (Auto) 2.4 1.0-4.0 10^3/uL Monocytes # (Auto) 0.9 0.0-1.0 10^3/uL Eosinophils # (Auto) 0.0 0.0-0.3 10^3/uL Basophils # (Auto) 0.0 0.0-0.1 10^3/uL Immature Granulocyte # (Auto) 0.0 0.0-0.1 10^3/uL Sodium Level 137 135-145 MMOL/L Potassium Level 3.6 3.6-5.0 MMOL/L Chloride Level 104 98-107 MMOL/L Carbon Dioxide Level 20 L 21-32 MMOL/L Anion Gap 13 5-14 MMOL/L Blood Urea Nitrogen 7 7-18 MG/DL Creatinine 0.68 0.60-1.30 MG/DL Estimat Glomerular Filtration Rate 128 BUN/Creatinine Ratio 10 Glucose Level 96 70-105 MG/DL Calcium Level 9.4 8.5-10.1 MG/DL Human Chorionic Gonadotropin, Quant 67710 H <5 MIU/ML (KEITH MAS) Vital Signs/I&O 11/20/21 05:45 Temp 36.3 Pulse 83 Resp 20 B/P (MAP) 103/69 (80) Pulse Ox 100 O2 Delivery Room Air (KEITH MAS) Vital Signs/I&O Capillary Refill : (CRHISTINA VIEIRA MD) Progress Note : Progress Note 1. 1st trimester vaginal bleeding: - Labs - Transvaginal u/s - Signed out pt to Dr Mas for f/u of labs and u/s. (CHRISTINA VIEIRA MD) Progress Note : Time: 07:40 Progress Note Assumed care of the patient at shift change. She is comfortably awaiting an ultrasound. (KEITH MAS) Diagnostic Imaging Diagonstic Imaging: Ultrasound Plain Films/CT/US/NM/MRI: pelvis Comments Unremarkable ultrasound without any evidence of bleeding. Normal gestation seen. movement and heart movement noted. Reviewed: Reviewed by Me (KEITH MAS) Departure Impression Primary Impression: First trimester bleeding Disposition: HOME, SELF-CARE Condition: Stable Departure-Patient Inst. Decision time for Depature: 09:43 (KEITH MAS) Referrals: TABITHA BELTRAN DO (PCP) Primary Care Physician EVERTON FLORES MD (Family) Primary Care Physician Patient Instructions: Bleeding In Early Add. Discharge Instructions: I suggest you follow-up with your primary OB provider in the next couple weeks. Until that time nothing in the pelvis. The bleeding should subside in just a few days. There is no evidence of bleeding from the placenta or fetus at this time. All discharge instructions reviewed with patient and/or family. Voiced understanding. CHRISTINA VIEIRA MD Nov 20, 2021 06:21 KEITH MAS Nov 20, 2021 07:40
[2021-11-20 06:31] LABS: POTASSIUM 3.6 MMOL/L (3.6-5.0)
[2021-11-20 06:32] LABS: CALCIUM 9.4 MG/DL (8.5-10.1)
[2021-11-20 06:36] LABS: CREATININE SERUM 0.68 MG/DL (0.60-1.30)
--- NOTE | 2021-11-20 09:44 | Diagnostic Imaging Report ---
EXAM: First Trimester Ultrasound INDICATIONS: Age by LMP is 11 weeks, 4 days. TECHNIQUE: The pelvis was scanned using transabdominal and endovaginal technique. COMPARISON: None. FINDINGS: Endovaginal sonography demonstrates a single living intrauterine gestation. heart rate is detected measuring 167 bpm. The appearance of the embryo and gestation is normal for age. The ovaries are nonvisualized. No abnormal adnexal masses. Mild free fluid. biometry: [place] rump length 4.4 cm: 11 weeks, 3 days. IMPRESSION: Single living intrauterine gestation with estimated gestational age by CRL of 11 weeks 3 days. Dictated by: Dictated on workstation # [id number]
[2021-11-20 10:15] VITALS: BP 106/65
== END 2021-11-20 10:50 | disposition home or self-care (01) ==
LOC: EDUNIT# 05:23 → ER 05:27
DX: O20.9 Hemorrhage in early pregnancy, unspecified (principal); Z3A.12 12 weeks gestation of pregnancy
CPT/HCPCS: 36415; 76801; 76817; 80048; 84702; 85025; 86900; 86901

== ENCOUNTER 2021-12-02 02:08 | Emergency (ER) | payer MEDICAID ==
[~2021-12-02] VITALS: Ht 165.1 cm; Wt 97.4 kg
[2021-12-02 03:22] LABS: BILIRUBIN,URINE NEGATIVE (NEGATIVE); CLARITY,URINE CLEAR; COLOR,URINE YELLOW; GLUCOSE, URINE (UA) NEGATIVE (NEGATIVE); KETONES,URINE NEGATIVE (NEGATIVE); LEUKOCYTE ESTERASE ,URINE NEGATIVE (NEGATIVE); NITRITE,URINE NEGATIVE (NEGATIVE); PH,URINE 5.5 (5-9); PROTEIN,URINE NEGATIVE (NEGATIVE)
[2021-12-02 03:32] LABS: BACTERIA,URINE TRACE /HPF; RBC,URINE 0-2 /HPF
--- NOTE | 2021-12-02 03:45 | ED GU-Female ---
General Chief Complaint: OB < 20 WEEKS Stated Complaint: 13 WKS & 2 DAYS PREG,VAG BLEEDING Nursing Triage Note: PT ARRIVAL TO ER WITH COMPLAINT OF ABNORMAL VAGINAL BLEEDING DURING . PT STATES THAT IT HAS HAPPENED SEVERAL TIMES DURING THIS , BUT OB DIDNT SEEM REAL CONCERNED. PT DENIES PAIN OR CRAMPING WITH THE BLEEDING. PT HAD NORMAL EXAM LAST WEEK PER PATIENT. PT DID HAVE MISCARRIAGE IN AUGUST OF THIS YEAR PER PATIENT. Source: patient, old records Exam Limitations: no limitations History of Present Illness Date Seen by Provider: December 02, 2021 Time Seen by Provider: 02:15 Initial Comments This 21-year-old young lady at approximately 13 weeks gestational age presents to the emergency room complaining of vaginal spotting. Bleeding is rust colored and not heavy. She has not soaked through any pads. She has a backache and some occasional subtle cramping. She denies any fever, unusual vaginal discharge, dysuria, or other symptoms of acute illness. 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 She had an ultrasound performed November 20 showing a normal single live intrauterine . Allergies and Home Medications Allergies Coded Allergies: No Known Drug Allergies (Verified , 05/08/21) Patient Home Medication List Home Medication List Reviewed: Yes Cephalexin (Cephalexin) 500 Mg Tablet, 500 MG PO BID Prescribed by: CHRISTINA VIEIRA MD on 11/13/21 2212 Cetirizine HCl (Cetirizine HCl) 10 Mg Tablet, 10 MG PO DAILY Prescribed by: STEVE ARELLANO on 10/23/19 1131 Hydroxyzine HCl (Hydroxyzine HCl) 25 Mg Tablet, 25 MG PO TID PRN for ITCHING Prescribed by: STEVE ARELLANO on 10/23/19 1131 Levocetirizine Dihydrochloride (Levocetirizine Dihydrochloride) 5 Mg Tablet, 5 MG PO BID Prescribed by: STEVE ARELLANO on 06/18/20 2130 Levothyroxine Sodium (Levothyroxine 150 Mcg Tab) 150 Mcg Tablet, 1 EACH PO DAILY, (Reported) Entered as Reported by: OSMAN SANTANA on 12/24/13 1758 Methylprednisolone (Methylprednisolone Dose Pack) 4 Mg Tab.ds.pk, 4 MG PO UD Prescribed by: FATEMEH SILVA on 06/06/20 1235 Methylprednisolone (Medrol) 4 Mg Tab.ds.pk, 4 MG PO UD Prescribed by: STEVE ARELLANO on 06/18/201954 Montelukast Sodium (Montelukast Sodium) 10 Mg Tablet, 10 MG PO DAILY Prescribed by: STEVE ARELLANO on 06/18/202134 Nitrofurantoin Macrocrystal (Nitrofurantoin) 100 Mg Capsule, 100 MG PO BID Prescribed by: RAMYA JAIMES on 05/07/21 190 Norgestimate-Ethinyl Estradiol (Tri-Lo-Enedina Tablet) 1 Each Tablet, (Reported) Entered as Reported by: THOMAS TRACEY on 02/13/20 014 Prazosin HCl (Prazosin HCl) 2 Mg Capsule, (Reported) Entered as Reported by: THOMAS TRACEY on 02/13/20145 Prazosin HCl (Prazosin HCl) 5 Mg Capsule, (Reported) Entered as Reported by: THOMAS TRACEY on 02/13/20145 Prednisone (Prednisone) 20 Mg Tab, 40 MG PO DAILY Prescribed by: SNEHAL PRADO on 02/13/20 0156 Tramadol HCl (Ultram) 50 Mg Tablet, 50 MG PO Q6H PRN for PAIN-MODERATE (5-7) Prescribed by: STEVE ARELLANO on 01/13/21 1517 Review of Systems Review of Systems Constitutional: no symptoms reported EENTM: no symptoms reported Respiratory: no symptoms reported Cardiovascular: no symptoms reported Gastrointestinal: no symptoms reported Genitourinary: see HPI : Yes Musculoskeletal: see HPI Skin: no symptoms reported Psychiatric/Neurological: No Symptoms Reported Endocrine: No Symptoms Reported Hematologic/Lymphatic: No Symptoms Reported Past Osiqulk-Eogqlf-Bcehzg Hx Patient Social History Tobacco Use?: No Use of E-Cig and/or Vaping dev: No Substance use?: No Alcohol Use?: No Pt feels they are or have been: No Immunizations Up To Date Tetanus Booster (TDap): Less than 5yrs PED Vaccines UTD: Yes Influenza Vaccine Up-to-Date: Yes; Up-to-Date First/Initial COVID19 Vaccinat: JANUARY 2021 Second COVID19 Vaccination Lucio: JANUARY 2021 Third COVID19 Vaccination Date: 06/10/2021 Seasonal Allergies Seasonal Allergies: No Past Medical History Surgery/Hospitalization HX: HYPOTHYROIDISM Surgeries: Yes Adenoidectomy, Tonsillectomy Respiratory: No Cardiac: No Neurological: No Reproductive Disorders: No Female Reproductive Disorders: Denies Sexually Transmitted Disease: No HIV/AIDS: No Genitourinary: No Gastrointestinal: Yes ( A BABY) Gastroesophageal Reflux Musculoskeletal: Yes Endocrine: Yes (Jm's thyroiditis, insulin resistant) Hypothyroidsim HEENT: No Cancer: No Psychosocial: Yes Anxiety, Depression Integumentary: Yes (HIVES/URTICARIA) Blood Disorders: No Family Medical History Cancer Cancer of colon Cataract Family history: Asthma Family history: Cardiovascular disease Family history: Diabetes mellitus Family history: Hypertension Family history: Thyroid disorder Heart disease No Family History of: Abdominal aortic aneurysm [place]'s disease Alcoholism Aphasia Congenital heart disease Congestive heart failure Cystic fibrosis Dementia Dysphagia Family history: Allergy Family history: Alzheimer's disease Family history: Arthritis Family history: Breast disease Family history: Coronary thrombosis Family history: Gastrointestinal disease Family history: Glaucoma Family history: Osteoporosis Headache Hearing loss Hereditary disease History of - anemia History of - disorder History of - respiratory disease History of drug abuse Human immunodeficiency virus (HIV) seropositivity Hypercholesterolemia Infertile Kidney disease Malignant neoplasm of lung Myocardial infarction Parkinson's disease Prostate cancer Psychotic disorder Seizure disorder Stroke Tuberculosis Visual impairment Physical Exam Vital Signs Vital Signs - First Documented 12/02/21 02:29 Temp 37.0 Pulse 72 Resp 14 B/P (MAP) 110/62 (78) Pulse Ox 100 O2 Delivery Room Air Capillary Refill : Less Than 3 Seconds Height, Weight, BMI Height: 5'5.00" Weight: 180lbs. 7oz. 81.181515gd; 35.00 BMI Method:Stated General Appearance: WD/WN, no apparent distress HEENT: normal ENT inspection Respiratory: no respiratory distress Gastrointestinal: non tender, soft; No distended Extremities: normal inspection Neurologic/Psychiatric: alert, normal mood/affect, oriented x 3 Skin: normal color, warm/dry Progress/Results/Core Measures Suspected Sepsis SIRS Temperature: Pulse: 72 Respiratory Rate: 14 Blood Pressure 110 /62 Mean: 78 Results/Orders Lab Results Laboratory Tests Test 12/02/21 02:56 Range/Units Urine Color YELLOW Urine Clarity CLEAR Urine pH 5.5 5-9 Urine Specific [place] 1.020 1.016-1.022 Urine Protein NEGATIVE NEGATIVE Urine Glucose (UA) NEGATIVE NEGATIVE Urine Ketones NEGATIVE NEGATIVE Urine Nitrite NEGATIVE NEGATIVE Urine Bilirubin NEGATIVE NEGATIVE Urine Urobilinogen 0.2 < = 1.0 MG/DL Urine Leukocyte Esterase NEGATIVE NEGATIVE Urine RBC (Auto) 1+ H NEGATIVE Urine RBC 0-2 /HPF Urine WBC NONE /HPF Urine Squamous Epithelial Cells 2-5 /HPF Urine Crystals NONE /LPF Urine Bacteria TRACE /HPF Urine Casts NONE /LPF Urine Mucus NEGATIVE /LPF Urine Culture Indicated NO My Orders Orders - YASH STOUT MD Ua Culture If Indicated (12/02/21 03:17) Vital Signs/I&O 12/02/21 02:29 Temp 37.0 Pulse 72 Resp 14 B/P (MAP) 110/62 (78) Pulse Ox 100 O2 Delivery Room Air Capillary Refill : Less Than 3 Seconds Blood Pressure Mean: 78 Progress Note : Progress Note Heart tones initially could not be found with Doppler. Ultrasound was applied and movement was identified. Clear heart tones could not be seen. Doppler was reapplied and heart tones were found to be in the 150s. Urinalysis was unremarkable. Patient was given reassurance and discharged. Departure Impression Primary Impression: First trimester bleeding Disposition: HOME, SELF-CARE Condition: Stable Departure-Patient Inst. Decision time for Depature: 03:44 Referrals: TABITHA BELTRAN DO (PCP) Primary Care Physician EVERTON FLORES MD (Family) Primary Care Physician Patient Instructions: Bleeding In Early Add. Discharge Instructions: Follow-up with Dr. BELTRAN by phone later today. Return to the ER if you have significant blood flow or develop new symptoms such as fever or escalating pain. Drink plenty of clear liquids. You may take Tylenol for backache and cramping. All discharge instructions reviewed with patient and/or family. Voiced understanding. Copy Copies To 1: TABITHA BELTRAN JOSHUA T MD December 02, 2021 03:45
[2021-12-02 03:58] VITALS: BP 101/76
== END 2021-12-02 03:57 | disposition home or self-care (01) ==
LOC: EDUNIT# 02:08 → ER 02:12
DX: O20.9 Hemorrhage in early pregnancy, unspecified (principal); Z3A.13 13 weeks gestation of pregnancy
CPT/HCPCS: 81000; 99282

== ENCOUNTER 2021-12-21 20:52 | Emergency (ER) | payer MEDICAID ==
[~2021-12-21] VITALS: Ht 162.5 cm; Wt 74.8 kg
[2021-12-21 21:42] LABS: BILIRUBIN,URINE NEGATIVE (NEGATIVE); CLARITY,URINE SL CLOUDY; COLOR,URINE YELLOW; GLUCOSE, URINE (UA) NEGATIVE (NEGATIVE); KETONES,URINE 1+ (NEGATIVE); LEUKOCYTE ESTERASE ,URINE NEGATIVE (NEGATIVE); NITRITE,URINE NEGATIVE (NEGATIVE); PROTEIN,URINE NEGATIVE (NEGATIVE)
[2021-12-21 21:47] LABS: BACTERIA,URINE FEW /HPF; SQUAMOUS EPITHELIAL CELL,UR 0-2 /HPF; WBC,URINE 0-2 /HPF
--- NOTE | 2021-12-21 21:56 | ED Abdominal Pain ---
General Chief Complaint: OB < 20 WEEKS Stated Complaint: CRAMPING 16 WKS PREG Source of Information: Patient Exam Limitations: No Limitations History of Present Illness Date Seen by Provider: December 21, 2021 Time Seen by Provider: 21:38 Initial Comments Patient is a 21-year-old female who presents to the emergency department today with a chief complaint of abdominal cramping. Also for concern of hitting her abdomen on the side of her bathtub today while she was washing her dog. She states she has been under significantly increased stress over the last 3 days as a result of lifting with her 19-year-old brother. She states she does feel safe at home and denies any concern for physical injury at home. She denies any vaginal bleeding or loss of fluids. No burning with urination. No abnormal vaginal discharge. She is a G2, P0. She did have miscarriage at 9 weeks in August of this year. She is followed with Dr. Benitez. She has an appointment at the beginning of next week. She is 16 weeks today with an estimated due date of June 2022. No other complaints of illness or injury. She has not taken any Tylenol or any medications for this cramping. Timing/Duration: 12 Hours Severity/Quality: Moderate, Cramping Location: Generalized Abdomen Radiation: No Radiation Associated Symptoms: Denies Symptoms Allergies and Home Medications Allergies Coded Allergies: No Known Drug Allergies (Verified , 05/08/21) Patient Home Medication List Home Medication List Reviewed: Yes Cephalexin (Cephalexin) 500 Mg Tablet, 500 MG PO BID Prescribed by: CHRISTINA VIEIRA MD on 11/13/21 2212 Cetirizine HCl (Cetirizine HCl) 10 Mg Tablet, 10 MG PO DAILY Prescribed by: STEVE ARELLANO on 10/23/19 1131 Hydroxyzine HCl (Hydroxyzine HCl) 25 Mg Tablet, 25 MG PO TID PRN for ITCHING Prescribed by: STEVE ARELLANO on 10/23/19 1131 Levocetirizine Dihydrochloride (Levocetirizine Dihydrochloride) 5 Mg Tablet, 5 MG PO BID Prescribed by: STEVE ARELLANO on 06/18/202129 Levothyroxine Sodium (Levothyroxine 150 Mcg Tab) 150 Mcg Tablet, 1 EACH PO TONE ECHEVARRIA, (Reported) Entered as Reported by: OSMAN SANTANA on 12/24/13 1758 Methylprednisolone (Methylprednisolone Dose Pack) 4 Mg Tab.ds.pk, 4 MG PO UD Prescribed by: FATEMEH SILVA on 06/06/20 1235 Methylprednisolone (Medrol) 4 Mg Tab.ds.pk, 4 MG PO UD Prescribed by: STEVE ARELLANO on 06/18/201954 Montelukast Sodium (Montelukast Sodium) 10 Mg Tablet, 10 MG PO DAILY Prescribed by: STEVE ARELLANO on 06/18/202134 Nitrofurantoin Macrocrystal (Nitrofurantoin) 100 Mg Capsule, 100 MG PO BID Prescribed by: RAMYA JAIMES on 05/07/21 190 Norgestimate-Ethinyl Estradiol (Tri-Lo-Enedina Tablet) 1 Each Tablet, (Reported) Entered as Reported by: THOMAS TRACEY on 02/13/20 014 Prazosin HCl (Prazosin HCl) 2 Mg Capsule, (Reported) Entered as Reported by: THOMAS TRACEY on 02/13/20 014 Prazosin HCl (Prazosin HCl) 5 Mg Capsule, (Reported) Entered as Reported by: THOMAS TRACEY on 02/13/20 014 Prednisone (Prednisone) 20 Mg Tab, 40 MG PO DAILY Prescribed by: SNEHAL PRADO on 02/13/20 0156 Tramadol HCl (Ultram) 50 Mg Tablet, 50 MG PO Q6H PRN for PAIN-MODERATE (5-7) Prescribed by: STEVE ARELLANO on 01/13/21 1517 Review of Systems Review of Systems Constitutional: see HPI EENTM: No Symptoms Reported Respiratory: No Symptoms Reported Cardiovascular: No Symptoms Reported Gastrointestinal: Abdominal Pain (Crampy) Genitourinary: No Symptoms Reported Musculoskeletal: no symptoms reported Skin: no symptoms reported Psychiatric/Neurological: No Symptoms Reported All Other Systems Reviewed Negative Unless Noted: Yes Past Ofxeppg-Wxsuri-Puibdg Hx Patient Social History Tobacco Use?: No Use of E-Cig and/or Vaping dev: No Substance use?: No Alcohol Use?: No Pt feels they are or have been: No Immunizations Up To Date Tetanus Booster (TDap): Less than 5yrs PED Vaccines UTD: Yes Influenza Vaccine Up-to-Date: Yes; Up-to-Date First/Initial COVID19 Vaccinat: JANUARY 2021 Second COVID19 Vaccination Lucio: JANUARY 2021 Third COVID19 Vaccination Date: 06/10/2021 Seasonal Allergies Seasonal Allergies: No Past Medical History Surgery/Hospitalization HX: HYPOTHYROIDISM Surgeries: Yes Adenoidectomy, Tonsillectomy Respiratory: No Cardiac: No Neurological: No Reproductive Disorders: No Female Reproductive Disorders: Denies Sexually Transmitted Disease: No HIV/AIDS: No Genitourinary: No Gastrointestinal: Yes ( A BABY) Gastroesophageal Reflux Musculoskeletal: Yes Endocrine: Yes (Jm's thyroiditis, insulin resistant) Hypothyroidsim HEENT: No Cancer: No Psychosocial: Yes Anxiety, Depression Integumentary: Yes (HIVES/URTICARIA) Blood Disorders: No Family Medical History Cancer Cancer of colon Cataract Family history: Asthma Family history: Cardiovascular disease Family history: Diabetes mellitus Family history: Hypertension Family history: Thyroid disorder Heart disease No Family History of: Abdominal aortic aneurysm Marco's disease Alcoholism Aphasia Congenital heart disease Congestive heart failure Cystic fibrosis Dementia Dysphagia Family history: Allergy Family history: Alzheimer's disease Family history: Arthritis Family history: Breast disease Family history: Coronary thrombosis Family history: Gastrointestinal disease Family history: Glaucoma Family history: Osteoporosis Headache Hearing loss Hereditary disease History of - anemia History of - disorder History of - respiratory disease History of drug abuse Human immunodeficiency virus (HIV) seropositivity Hypercholesterolemia Infertile Kidney disease Malignant neoplasm of lung Myocardial infarction Parkinson's disease Prostate cancer Psychotic disorder Seizure disorder Stroke Tuberculosis Visual impairment Physical Exam Vital Signs Capillary Refill : Height/Weight/BMI Height: 5'5.00" Weight: 180lbs. 7oz. 81.519414yb; 35.00 BMI Method:Stated General Appearance: WD/WN, no apparent distress HEENT: PERRL/EOMI Respiratory: lungs clear, no respiratory distress, no accessory muscle use Cardiovascular: regular rate, rhythm Gastrointestinal: normal bowel sounds, non tender, soft Extremities: non-tender, normal inspection Neurologic/Psychiatric: alert, normal mood/affect, oriented x 3 Skin: normal color, warm/dry Progress/Results/Core Measures Results/Orders Lab Results Laboratory Tests Test 12/21/21 21:37 Range/Units Urine Color YELLOW Urine Clarity SL CLOUDY Urine pH 6.0 5-9 Urine Specific [place] 1.025 H 1.016-1.022 Urine Protein NEGATIVE NEGATIVE Urine Glucose (UA) NEGATIVE NEGATIVE Urine Ketones 1+ H NEGATIVE Urine Nitrite NEGATIVE NEGATIVE Urine Bilirubin NEGATIVE NEGATIVE Urine Urobilinogen 0.2 < = 1.0 MG/DL Urine Leukocyte Esterase NEGATIVE NEGATIVE Urine RBC (Auto) NEGATIVE NEGATIVE Urine RBC NONE /HPF Urine WBC 0-2 /HPF Urine Squamous Epithelial Cells 0-2 /HPF Urine Crystals NONE /LPF Urine Bacteria FEW H /HPF Urine Casts NONE /LPF Urine Mucus SMALL H /LPF Urine Culture Indicated YES Progress Progress Note : Time: 21:53 Progress Note heart tones assessed in the 150s. cardiac activity noted on bedside ultrasound. Discussed with the patient drinking lots of fluids, Tylenol as needed for cramping. Return precautions to include abnormal vaginal discharge and vaginal bleeding to return to the emergency room. Keep her follow-up appointment with Dr. Benitez next week. Patient verbalized understanding. All questions are sought and answered Departure Impression Primary Impression: Abdominal cramping affecting Additional Impression: 16 weeks gestation of Disposition: 01 HOME, SELF-CARE Condition: Stable Departure-Patient Inst. Decision time for Depature: 21:55 Referrals: TABITHA BENITEZ CASEY V DO (PCP/Family) Primary Care Physician Patient Instructions: - The Fourth Month Add. Discharge Instructions: Drink plenty of fluids to stay well-hydrated. You can take extra strength Tylenol 2 tablets every 6 hours as needed for cramping pain. Return to the emergency department for worsening pain especially pain associated with vaginal bleeding, loss of fluids, fever or any other emergent concerning symptoms. Keep your follow-up with Dr. Benitez next week. Copy Copies To 1: TABITHA BENITEZ KATHRYN M MD December 21, 2021 21:56
[2021-12-21 22:09] VITALS: BP 115/79
== END 2021-12-21 22:09 | disposition home or self-care (01) ==
LOC: EDUNIT# 20:52 → ER 20:55
DX: O26.892 Other specified pregnancy related conditions, second trimester (principal); R10.84 Generalized abdominal pain; Z3A.16 16 weeks gestation of pregnancy
CPT/HCPCS: 81000; 87088

== ENCOUNTER 2021-12-27 22:42 | Emergency (ER) | payer MEDICAID ==
[~2021-12-27] VITALS: Ht 166 cm; Wt 95.3 kg
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
[2021-12-27 23:20] VITALS: BP 103/60
== END 2021-12-27 23:20 | disposition home or self-care (01) ==
LOC: EDUNIT# 22:42 → ER 22:45
DX: O9A.212 Injury, poisoning and certain other consequences of external causes complicating pregnancy, second trimester (principal); S70.11XA Contusion of right thigh, initial encounter; S70.01XA Contusion of right hip, initial encounter; Z87.59 Personal history of other complications of pregnancy, childbirth and the puerperium; Z3A.17 17 weeks gestation of pregnancy; Y04.8XXA Assault by other bodily force, initial encounter

== ENCOUNTER → 2022-01-20 | Outpatient (CLI) | payer MEDICAID ==
--- NOTE | 2022-01-20 11:01 | Diagnostic Imaging Report ---
INDICATION: survey. TECHNIQUE: Multiple real-time grayscale images were obtained over the gravid uterus. COMPARISON: None FINDINGS: There is a single live fetus in a breech presentation. heart rate was recorded at 158 bpm. Placenta is posterior and fundal. Amniotic fluid volume is normal. bladder and stomach as well as the brain are unremarkable. The remainder of the survey is somewhat limited. There is poor visualization of the kidneys as well as the four-chamber heart view. The three-vessel cord and cord insertion were limited. Spine evaluation was limited. Cervical length is 5 cm. Biometrical measurements are as follows: Biparietal 4.35 cm, age 19 weeks 2 days. Head circumference 16.27 cm, age 19 weeks 1 days. Abdominal circumference 15.27 cm, age 20 weeks 4 days. Femur length 3.16 cm, age 19 weeks 6 days. Sonographic estimate age: 19 weeks 5 days. Sonographic estimated date of delivery: 06/11/2022. Estimated Weight: 328 gm (+/- 48 gm). LMP percentile: 31%. heart rate: 158 beats per minute. number: 1 of 1. IMPRESSION: Single live IUP 19 weeks 5 days gestational age with estimated date of confinement sonographically is 06/11/2022. The survey is limited. Follow-up later in the 2nd or early in the 3rd trimester would be recommended. Dictated by: Dictated on workstation # [id number]
== END ==
LOC: RAD 10:00
PROVIDERS: ATTEND Nurse Practitioner Women's Health
DX: Z34.02 Encounter for supervision of normal first pregnancy, second trimester (principal); Z3A.19 19 weeks gestation of pregnancy
CPT/HCPCS: 76805

== ENCOUNTER 2022-02-09 00:33 | Outpatient (CLI) | payer MEDICAID ==
[~2022-02-09] VITALS: Ht 165 cm; Wt 95.6 kg
[2022-02-09 00:55] LABS: BILIRUBIN,URINE NEGATIVE (NEGATIVE); CLARITY,URINE CLEAR; COLOR,URINE YELLOW; GLUCOSE, URINE (UA) NEGATIVE (NEGATIVE); KETONES,URINE NEGATIVE (NEGATIVE); LEUKOCYTE ESTERASE ,URINE NEGATIVE (NEGATIVE); NITRITE,URINE NEGATIVE (NEGATIVE); PROTEIN,URINE NEGATIVE (NEGATIVE)
[2022-02-09 01:02] VITALS: BP 107/66
[2022-02-09 01:05] VITALS: BP 107/66
[2022-02-09 01:51] LABS: BACTERIA,URINE TRACE /HPF
[2022-02-09] MEDS ORDERED: PREN-142 PO (04:06)
[2022-02-09] MEDS ORDERED: LACTATED RINGERS 1,000 ML IV ONE (04:30)
== END 2022-02-09 04:15 | disposition home or self-care (01) ==
LOC: LDRP 00:33 → WSo 00:33
PROVIDERS: ATTEND Obstetrics & Gynecology
DX: O26.899 Other specified pregnancy related conditions, unspecified trimester (principal); M54.9 Dorsalgia, unspecified; Z3A.00 Weeks of gestation of pregnancy not specified
CPT/HCPCS: 81000; G0463; 99213

== ENCOUNTER 2022-03-07 | Outpatient (CLI) | payer MEDICAID ==
[~2022-03-07] VITALS: Ht 165.1 cm; Wt 97.5 kg
[~2022-03-07] MED LIST changes: +PREN-142 PO
[2022-03-07 00:20] VITALS: BP 101/58
[2022-03-07 00:23] VITALS: BP 101/58
[2022-03-07 00:37] LABS: BILIRUBIN,URINE NEGATIVE (NEGATIVE); CLARITY,URINE CLEAR; COLOR,URINE YELLOW; GLUCOSE, URINE (UA) NEGATIVE (NEGATIVE); KETONES,URINE TRACE (NEGATIVE); LEUKOCYTE ESTERASE ,URINE NEGATIVE (NEGATIVE); NITRITE,URINE NEGATIVE (NEGATIVE); PROTEIN,URINE NEGATIVE (NEGATIVE)
[2022-03-07 00:51] LABS: BACTERIA,URINE FEW /HPF; CALCIUM OXALATE CRYSTALS,UR FEW /LPF; RBC,URINE 0-2 /HPF; SQUAMOUS EPITHELIAL CELL,UR 0-2 /HPF
--- NOTE | 2022-03-10 09:23 | Physician Query-Final Dx ---
Clinic Account Progress/Dx Physician Query: Please give diagnosis Please include # weeks gestation Date of Service Mar 07, 2022 at 00:00 SHEN,AugMar 10, 2022 09:23
== END 2022-03-07 00:50 | disposition home or self-care (01) ==
LOC: WSo → LDRP 00:01 → WSo 00:50
PROVIDERS: ATTEND Obstetrics & Gynecology
DX: O36.8120 Decreased fetal movements, second trimester, not applicable or unspecified (principal); Z3A.27 27 weeks gestation of pregnancy
CPT/HCPCS: 81000; 87088; 99212

== ENCOUNTER 2022-05-02 15:23 | Outpatient (CLI) | payer MEDICAID ==
[~2022-05-02] VITALS: Ht 165 cm; Wt 104.4 kg
[2022-05-02 15:29] VITALS: BP 121/73
[2022-05-02 15:52] LABS: BILIRUBIN,URINE NEGATIVE (NEGATIVE); CLARITY,URINE SL CLOUDY; COLOR,URINE YELLOW; GLUCOSE, URINE (UA) NEGATIVE (NEGATIVE); KETONES,URINE NEGATIVE (NEGATIVE); LEUKOCYTE ESTERASE ,URINE NEGATIVE (NEGATIVE); NITRITE,URINE NEGATIVE (NEGATIVE); PROTEIN,URINE NEGATIVE (NEGATIVE)
[2022-05-02 16:00] VITALS: BP 121/73
[2022-05-02 16:00] LABS: BACTERIA,URINE LARGE /HPF
--- NOTE | 2022-05-05 08:27 | Physician Query-Final Dx ---
SHEN05/05/22 0827: Clinic Account Progress/Dx Physician Query: Please give diagnosis Please include # weeks gestation Date of Service May 02, 2022 at 15:23 TABITHA BELTRAN DO 05/05/22 0919: Clinic Account Progress/Dx DIAGNOSIS: Diagnosis 37 week IUP Increase in vaginal discharge SHEN,AugMay 05, 2022 08:27 TABITHA BELTRAN DO May 05, 2022 09:19
== END 2022-05-02 16:35 | disposition home or self-care (01) ==
LOC: WSo 15:23 → LDRP 15:23 → WSo 16:35
PROVIDERS: ATTEND Obstetrics & Gynecology
DX: O41.90X0 Disorder of amniotic fluid and membranes, unspecified, unspecified trimester, not applicable or unspecified (principal); Z3A.00 Weeks of gestation of pregnancy not specified
CPT/HCPCS: 81000; 87088

== ENCOUNTER 2022-05-28 12:27 | Outpatient (CLI) | payer MEDICAID ==
[~2022-05-28] VITALS: Ht 165.1 cm; Wt 107.3 kg
[2022-05-28 12:50] VITALS: BP 123/59
[2022-05-28] MEDS ORDERED: LEVO175C2 PO (12:53)
[2022-05-28 14:10] VITALS: BP 123/59
--- NOTE | 2022-05-29 07:59 | Physician Query-Final Dx ---
05/29/22 0759: Clinic Account Progress/Dx Physician Query: Please give diagnosis Please include # weeks gestation Date of Service May 28, 2022 at 12:27 CHRISTIE KOENIG MD 05/29/22 1336: Clinic Account Progress/Dx DIAGNOSIS: Diagnosis False labor 38 weeks gestation ,AugMay 29, 2022 07:59 CHRISTIE KOENIG MD May 29, 2022 13:36
== END 2022-05-28 14:10 | disposition home or self-care (01) ==
LOC: LDRP 12:27 → WSo 12:27
PROVIDERS: ATTEND Obstetrics & Gynecology
DX: O62.9 Abnormality of forces of labor, unspecified (principal); Z3A.38 38 weeks gestation of pregnancy
CPT/HCPCS: 99214

== ENCOUNTER 2022-06-06 23:27 | Inpatient (IN) | payer MEDICAID ==
[~2022-06-06] VITALS: Ht 165.1 cm; Wt 109.6 kg
[~2022-06-06 23:27] MED LIST changes: +LEVO175C2 PO
[2022-06-06 23:30] VITALS: BP 125/73
[2022-06-07] VITALS (81 sets, daily range): BP systolic 88–145; BP diastolic 46–86
[2022-06-07 00:15] LABS: BILIRUBIN,URINE NEGATIVE (NEGATIVE); CLARITY,URINE CLEAR; COLOR,URINE YELLOW; GLUCOSE, URINE (UA) NEGATIVE (NEGATIVE); KETONES,URINE NEGATIVE (NEGATIVE); LEUKOCYTE ESTERASE ,URINE NEGATIVE (NEGATIVE); NITRITE,URINE NEGATIVE (NEGATIVE); PROTEIN,URINE NEGATIVE (NEGATIVE)
[2022-06-07] MEDS ORDERED: LIDOCAINE 1% INJ 20 ML VIAL IJ ONE (00:30)
[2022-06-07] MEDS ORDERED: OXYTOCIN PRE-MIX DRIP 500 ML IV SCH (00:30)
[2022-06-07 00:43] LABS: BACTERIA,URINE TRACE /HPF; WBC,URINE RARE /HPF
[2022-06-07] MEDS ORDERED: D5 LR IV SOLUTION 1,000 ML IV ONE (00:50)
[2022-06-07] MEDS: D5 LR IV SOLUTION 1,000 ML IV SCH ×2 (01:08→08:41)
[2022-06-07 01:47] LABS: BASOPHILS % (AUTO) 0 % (0-10); EOSINOPHILS % (AUTO) 0 % (0-10); HEMATOCRIT 36 % (35-52); HEMOGLOBIN 11.7 g/dL (11.5-16.0); LYMPHOCYTES # (AUTO) 3.1 10^3/uL (1.0-4.0); LYMPHOCYTES % (AUTO) 18 % (12-44); MEAN CORPUSCULAR HEMOGLOBIN 30 pg (25-34); MEAN CORPUSCULAR HGB CONC 33 g/dL (32-36); MEAN CORPUSCULAR VOLUME 91 fL (80-99); MEAN PLATELET VOLUME 9.9 fL (9.0-12.2); MONOCYTES # (AUTO) 1.5 10^3/uL (0.0-1.0); MONOCYTES % (AUTO) 8 % (0-12); NEUTROPHILS # (AUTO) 12.8 10^3/uL (1.8-7.8); NEUTROPHILS % (AUTO) 73 % (42-75); PLATELET COUNT 255 10^3/uL (130-400); WHITE BLOOD COUNT 17.6 10^3/uL (4.3-11.0)
[2022-06-07] MEDS: CATHETER FLUSH 10 ML SYR IV SCH ×2 (05:55→21:02)
[2022-06-07] MEDS ORDERED: LACTATED RINGERS 1,000 ML IV SCH (07:45)
[2022-06-07] MEDS ORDERED: fentaNYL 2 mcg/ml BUPIVA 0.125 100 ML ONE (07:46)
--- NOTE | 2022-06-07 07:50 | History & Physical-OB ---
KATIA GUNN 06/07/22 0750: OB - Chief Complaint & HPI Date/Time Date of Admission: Date of Admission: Jun 07, 2022 at 00:30 Date seen by a Provider: Jun 07, 2022 Time Seen by a Provider: 07:45 Chief Complaint/History OB-Reason for Admission/Chief: Rupture of Membranes Hx : 2 Hx Para: 0 Expected Date of Delivery: Jun 07, 2022 Gestational Age in Weeks: 40 Gestational Age in Days: 0 Allergies and Home Medications Allergies Coded Allergies: No Known Drug Allergies (Verified , 05/08/21) Patient Home Medication List Home Medication List Reviewed: Yes Levothyroxine Sodium (Levothyroxine) 175 Mcg Capsule, 175 MCG PO DAILY, (Reported) Entered as Reported by: TELLO GOVEA on 05/28/22 1253 Last Action: Reviewed Vit No.124/Iron/FA ( Vitamin Tablet) 27 Mg Iron-800 Mcg Tablet, 1 EACH PO, (Reported) Entered as Reported by: DUONG EWING on 02/09/22 0406 Last Action: Reviewed OB - History Hx of Present Care: Yes Ultrasounds: Normal mid trimester US Obstetrical Complications: None Medical Complications: None Information Induced Hypertension: No Maternal Gestational Diabetes: No Obstetrical History Hx : 2 Hx Para: 0 Hx Total # of Abortions (Spona: 1 Delivery History Hx Blood Disorders: No Patient Past Medical History Patient has hypothyroidism for which she takes levothyroxine for. Patient surgicla history includes a tonsillectomy. Social History/Family History Alcohol Use: Denies Use Recreational Drug Use: No Smoking Cessation: Never smoker 2nd Hand Smoke Exposure: No Immunizations Influenza Vaccine Up-to-Date: Yes; Up-to-Date First/Initial COVID19 Vaccine: JANUARY 2021 Second COVID19 Vaccination: JANUARY 2021 Third COVID19 Vaccination Date: 06/10/2021 COVID19 Vaccine Contract Recruiter: Moderna Hepatitis A: Yes Hepatitis B: Yes Tetanus Booster (TDap): Less than 5yrs Rubella: immune RPR/VDRL: Negative GBS Status: Negative HBsAG: Negative OB - Admission Exam Physical Exam Vitals: Vital Signs 06/07/22 06:45 Temp 36.5 Pulse 73 Resp 20 B/P (MAP) 104/58 (73) Pulse Ox 96 O2 Delivery Room Air HEENT: Oropharynx Normal Heart: Rhythm Normal Lungs: Clear Abdomen: Non tender Extremities: Normal Cervical Dilatation: 1cm Effacement: 25% Station: -3 Membranes: Ruptured Amniotic Fluid: Clear (Small amount on the hospital bed) Heart Rate: 140's Accelerations: Accelerations Present Decelerations: Early Decelerations Short Term Variability: Present Longterm Variability: Average (6-25) Contractions on Admission: 6-10 Minutes Apart Date/Time Contractions Began;: 06/07/22 6:00 AM Frequency of Contractions: 6-10 mins Duration: less than a minute Intensity: Moderate Labs Laboratory Tests Test 06/06/22 23:55 06/07/22 01:32 Range/Units Membranes Rupture POSITIVE White Blood Count 17.6 H 4.3-11.0 10^3/uL Red Blood Count 3.92 3.80-5.11 10^6/uL Hemoglobin 11.7 11.5-16.0 g/dL Hematocrit 36 35-52 % Mean Corpuscular Volume 91 80-99 fL Mean Corpuscular Hemoglobin 30 25-34 pg Mean Corpuscular Hemoglobin Concent 33 32-36 g/dL Red Cell Distribution Width 13.7 10.0-14.5 % Platelet Count 255 130-400 10^3/uL Mean Platelet Volume 9.9 9.0-12.2 fL Immature Granulocyte % (Auto) 1 % Neutrophils (%) (Auto) 73 42-75 % Lymphocytes (%) (Auto) 18 12-44 % Monocytes (%) (Auto) 8 0-12 % Eosinophils (%) (Auto) 0 0-10 % Basophils (%) (Auto) 0 0-10 % Neutrophils # (Auto) 12.8 H 1.8-7.8 10^3/uL Lymphocytes # (Auto) 3.1 1.0-4.0 10^3/uL Monocytes # (Auto) 1.5 H 0.0-1.0 10^3/uL Eosinophils # (Auto) 0.0 0.0-0.3 10^3/uL Basophils # (Auto) 0.0 0.0-0.1 10^3/uL Immature Granulocyte # (Auto) 0.2 H 0.0-0.1 10^3/uL Neutrophils % (Manual) % OB - Assessment/Plan/Diagnosis Assessment Assessment: rupture of membranes Admission Dx Melanie is a 21yo F that is a 0010 that is 40w0d today. Last night around 11:00 her membranes spontaneously ruptured while at home. She says the amniotic fluid was clear. The patient came to the hospital immediately after. She has been having some clear vaginal fluid ever since her membranes ruptured. Patient says that she started having contractions about 2 hours ago. She describes them as intense pain across the middle of her abdomen that lasts less than a minute. Patient says she is feeling them anywhere from 10-15mins apart. She has had some nausea this morning as well but has not vomited. Denies having a headaches, chest pain, SOB, swelling in her extremities, and dysuria Admission Status: Observation Plan Plan: Expectant Management Other Plan Will continue to monitor patient with cervical checks. She is currently receiving oxytocin 500ml@100mls/hr. She also has fentanyl/bupivacaine ordered for pain if needed. NIRAV BENITEZ DO 06/07/22 0953: Allergies and Home Medications Allergies Coded Allergies: No Known Drug Allergies (Verified , 05/08/21) Patient Home Medication List Levothyroxine Sodium (Levothyroxine) 175 Mcg Capsule, 175 MCG PO DAILY, (Reported) Entered as Reported by: TELLO GOVEA on 05/28/22 1253 Last Action: Reviewed Vit No.124/Iron/FA ( Vitamin Tablet) 27 Mg Iron-800 Mcg Tablet, 1 EACH PO, (Reported) Entered as Reported by: DUONG EWING on 02/09/22 0406 Last Action: Reviewed OB - Assessment/Plan/Diagnosis Plan Other Plan Verification and Attestation of Medical Student E/M Service Correction. IV Pain medication may be available, however patient getting epidural for analgesia at this point. A medical student performed and documented this service in my presence. I reviewed and verified all information documented by the medical student and made modifications to such information, when appropriate. I personally performed the physical exam and medical decision making. Nirav Benitez Jun 07, 2022,09:53 KATIA GUNN Jun 07, 2022 07:50 NIRAV BENITEZ DO Jun 07, 2022 09:53
[2022-06-07] MEDS ORDERED: fentaNYL INJ 100 MCG/2 ML AMP ONE ×2 (07:55→13:49)
[2022-06-07] MEDS ORDERED: BUPIVACAINE 0.25% 30 ML (SENSORCAINE) VIAL ONE ×2 (07:55→13:16)
[2022-06-07] MEDS ORDERED: NALOXONE 0.4 MG/ML 1 ML (NARCAN) VIAL IV PRN ×2 (08:00→15:15)
[2022-06-07] MEDS ORDERED: CATHETER FLUSH 10 ML SYR IV PRN (08:00)
[2022-06-07] MEDS ORDERED: LACTATED RINGERS 1,000 ML IV ONE (08:00)
[2022-06-07] MEDS ORDERED: fentaNYL 2 mcg/ml BUPIVA 0.125 100 ML IV SCH (08:00)
[2022-06-07] MEDS ORDERED: LIDOCAINE 1% INJ 20 ML VIAL IJ NR (12:00)
[2022-06-07] MEDS ORDERED: LIDOCAINE 1% INJ 10 ML VIAL IJ NR (12:30)
[2022-06-07] MEDS ORDERED: TETANUS,DIPTH,PERTUSS P/F (BOOSTRIX) 0.5 ML VIAL IM ONE (15:15)
[2022-06-07] MEDS ORDERED: MEASLES,MUMPS,RUBELLA 1 EA INJ SQ ONE (15:15)
[2022-06-07] MEDS ORDERED: HYDROcodone/APAP 5 MG/325 MG (LORTAB) TAB PO PRN (15:15)
--- NOTE | 2022-06-07 15:19 | OB Labor & Delivery Record ---
L&D History Date of Service Date of Service: Jun 07, 2022 History Expected Date of Delivery: Jun 07, 2022 Gestational Age in Weeks: 40 Hx : 2 Hx Para: 0 Complications Events: Routine care Operative Indications (Cesarea: N/A-Vaginal Delivery Intrapartal Events: None L&D Stage1 Stage One Onset of Labor - Date: Jun 07, 2022 Monitors and Tracing Monitor Mode: External Heart Rate: 140 Monitor Decelerations: Variable Station: -1 Inventory Representative Variability: Average (6-10) Short Term Variability: Present Presentation: Vertex Vital Signs VS - Last 72 Hours, by Label 06/06/22 06/07/22 06/07/22 06/07/22 23:30 00:30 02:25 02:26 Temp 37.0 37.0 37.0 Pulse 84 84 88 Resp 20 20 B/P (MAP) 125/73 121/72 (88) Pulse Ox 98 98 O2 Delivery Room Air Room Air 06/07/22 06/07/22 06/07/22 06/07/22 03:29 03:45 04:00 04:15 Pulse 85 95 92 85 Resp 18 B/P (MAP) 115/60 (78) 100/56 (71) 105/61 (76) 107/56 (73) O2 Delivery Room Air Room Air Room Air Room Air 06/07/22 06/07/22 06/07/22 06/07/22 04:30 04:45 05:00 05:15 Pulse 85 82 85 88 Resp 20 B/P (MAP) 112/66 (81) 109/68 (82) 130/67 (88) 131/60 (83) O2 Delivery Room Air Room Air 06/07/22 06/07/22 06/07/22 06/07/22 05:30 05:45 06:00 06:15 Pulse 81 84 84 88 B/P (MAP) 123/63 (83) 113/67 (82) 112/64 (80) 113/71 (85) 06/07/22 06/07/22 06/07/22 06/07/22 06:30 06:45 07:15 07:30 Temp 36.5 Pulse 68 73 75 85 Resp 20 18 18 B/P (MAP) 116/65 (82) 104/58 (73) 134/72 (92) 136/76 (96) Pulse Ox 96 O2 Delivery Room Air Room Air Room Air 06/07/22 07:45 Temp 36.6 Pulse 82 Resp 18 B/P (MAP) 132/75 (94) O2 Delivery Room Air Rupture of Membranes Spontaneous Ruture of Membrane: Yes Amniotic Membrane Rupture Time: 2306 Amniotic Membrane Fluid Desc.: Clear (to meconium approx 11 am) Induction/Anesthesia Epidural Cath Placement - Time: 0812 Progress/Notes Patient admitted with SROM, Pitocin started she received an epidural and progressed to complete and + 2 station. L&D Stage2 Monitors and Tracing Monitor Mode: External Heart Rate: 140 Monitor Decelerations: None Short Term Variability: Present Position: Right Occiput Anterior Presentation: Vertex Cord Descript/Complications Cord Vessel Description: 3 Vessels Delivery Type Infant Delivery Method: Spontaneous Vaginal Anterior Shoulder: Right Episiotomy/Perineal Laceration Laceraction(s)/Extensions: Yes Episiotomy Description: Perineal Extension/lac, 2nd degree Degree (describe repair) laceration repaired using 3-0 rapide and 2-0 vicyrl suture in usual fashion Condition of Delivery 1 minute Comment: 8 5 minute Comment: 9 Notes Live male infant weight 4lbs 15 oz Condition of Condition of : Living Exam: No Observed Abnormalities Resuscitation Resuscitation: N/A - Spontaneous Resp L&D Stage3 Stage Three Stage III Date: Jun 07, 2022 Pictocin Pitocin Administration mu/min: 8 Pitocin ml/hr: 8 Pitocin Administration Comment: 30 mu wide open after delivery of placenta Placenta Delivery Placenta Delivery: Spontaneous Delivery Summary Summary Estimated blood loss (mL): 250 Attending at delivery: Tabitha Beltran DO Condition of Delivery Examined: Cervix Examined, Uterus Explored Post Hemorrhage: No Condition of Mother stable Condition of Infant (s) stable TABITHA BELTRAN DO Jun 07, 2022 15:19
[2022-06-07] MEDS: OXYTOCIN PRE-MIX DRIP 500 ML IV SCH ×2 (15:34→21:03)
[2022-06-07] MEDS: WITCH HAZEL(TUCKS) 40 EA JAR TOP PRN (16:05)
[2022-06-07] MEDS: DIBUCAINE 1% OINTMENT 30 GM TUBE TOP PRN (16:45)
[2022-06-07] MEDS: BENZOCAINE/MENTHOL (DERMOPLAST) 56 ML CAN TP PRN (16:49)
[2022-06-07] MEDS: IBUPROFEN 600 MG (MOTRIN) TAB PO SCH (17:36)
[2022-06-07] MEDS: DOCUSATE SODIUM 100 MG (COLACE) CAP PO SCH (20:52)
[2022-06-07] MEDS ORDERED: CATHETER FLUSH 10 ML SYR IV SCH (22:00)
[2022-06-08 00:12] VITALS: BP 115/62
[2022-06-08] MEDS: IBUPROFEN 600 MG (MOTRIN) TAB PO SCH ×4 (00:13→18:35)
[2022-06-08 06:10] VITALS: BP 96/51
[2022-06-08 06:22] LABS: BASOPHILS % (AUTO) 0 % (0-10); EOSINOPHILS % (AUTO) 0 % (0-10); HEMATOCRIT 33 % (35-52); HEMOGLOBIN 10.4 g/dL (11.5-16.0); LYMPHOCYTES # (AUTO) 3.8 10^3/uL (1.0-4.0); LYMPHOCYTES % (AUTO) 20 % (12-44); MEAN CORPUSCULAR HEMOGLOBIN 30 pg (25-34); MEAN CORPUSCULAR HGB CONC 32 g/dL (32-36); MEAN CORPUSCULAR VOLUME 92 fL (80-99); MEAN PLATELET VOLUME 9.8 fL (9.0-12.2); MONOCYTES # (AUTO) 1.5 10^3/uL (0.0-1.0); MONOCYTES % (AUTO) 8 % (0-12); NEUTROPHILS # (AUTO) 13.7 10^3/uL (1.8-7.8); NEUTROPHILS % (AUTO) 71 % (42-75); PLATELET COUNT 215 10^3/uL (130-400); WHITE BLOOD COUNT 19.3 10^3/uL (4.3-11.0)
[2022-06-08 08:00] VITALS: BP 103/59
--- NOTE | 2022-06-08 08:08 | Postpartum Progress Note ---
Note Note Day # 1 Subjective: Patient is without complaints. Ambulating, voiding. Tolerating a regular diet without nausea or vomiting. Normal lochia. Pain is well controlled with oral pain medications. Objective: Physical Exam: General - Alert and oriented, no apparent distress Abdomen - Soft, appropriately tender to palpation, non-distended, fundus firm at umbilicus Extremities - no edema, negative Otf's bilaterally Assessment: PPD 1 NVD Acute blood loss anemia Plan: Routine care. Encourage breast feeding. Encourage ambulation. Ferrous sulfate supplementation. Plan for discharge today pending infant release Vitals - Labs Vital Signs - I&O Vital Signs Date Time Temp Pulse Resp B/P (MAP) Pulse Ox O2 Delivery O2 Flow Rate FiO2 06/08/22 06:10 36.5 76 18 96/51 (66) 99 Room Air 06/08/22 00:12 36.6 103 18 115/62 (79) 97 Room Air 06/07/22 20:50 36.6 104 18 111/58 (75) 97 Room Air 06/07/22 17:05 36.9 113 18 116/73 (87) 97 Room Air 06/07/22 16:45 99 18 113/56 (75) Room Air 06/07/22 16:34 110 18 Room Air 06/07/22 16:00 87 18 112/64 (80) Room Air 06/07/22 15:45 36.4 18 Room Air 06/07/22 15:18 105 18 132/78 (96) Room Air 06/07/22 15:02 88 18 119/63 (81) Room Air 06/07/22 14:48 95 20 145/86 (105) 100 Non Rebreather 15.00 06/07/22 14:28 96 20 119/76 (90) 100 Non Rebreather 15.00 06/07/22 14:23 91 20 126/73 (90) 100 Non Rebreather 15.00 06/07/22 14:18 93 20 120/72 (88) 100 Non Rebreather 15.00 06/07/22 14:14 98 20 117/65 (82) 100 Non Rebreather 15.00 06/07/22 14:06 37.1 109 20 127/65 (85) 100 Non Rebreather 15.00 06/07/22 14:03 96 18 137/60 (85) 100 Room Air 06/07/22 13:54 96 18 124/62 (82) 100 Room Air 06/07/22 13:50 83 18 105/58 (74) 100 Room Air 06/07/22 13:40 85 18 123/70 (87) 98 Room Air 06/07/22 13:26 85 18 130/71 (90) 98 Room Air 06/07/22 13:21 79 18 132/73 (92) 96 Room Air 06/07/22 13:10 77 18 141/80 (100) 96 Room Air 06/07/22 13:04 82 18 128/74 (92) 98 Room Air 06/07/22 12:59 36.8 78 18 138/79 (98) 99 Room Air 06/07/22 12:55 86 18 134/77 (96) 98 Room Air 06/07/22 12:50 85 18 134/78 (96) 98 Room Air 06/07/22 12:44 80 18 121/77 (92) 98 Room Air 06/07/22 12:40 80 18 130/76 (94) 98 Room Air 06/07/22 12:34 70 18 126/67 (86) 99 Room Air 06/07/22 12:31 76 18 124/72 (89) 100 Room Air 06/07/22 12:15 81 18 115/64 (81) 99 Room Air 06/07/22 12:00 89 18 111/60 (77) 99 Room Air 06/07/22 11:50 88 18 109/60 (76) 98 Room Air 06/07/22 11:35 88 18 98/59 (72) 98 Room Air 06/07/22 11:20 75 18 107/62 (77) 98 Room Air 06/07/22 11:05 75 18 97/52 (67) 99 Non Rebreather 15.00 06/07/22 10:50 36.8 78 18 93/53 (66) 100 Non Rebreather 15.00 06/07/22 10:35 70 18 102/55 (71) 100 Non Rebreather 15.00 06/07/22 10:21 70 18 105/56 (72) 100 Non Rebreather 15.00 06/07/22 10:05 87 18 97 Non Rebreather 15.00 06/07/22 10:00 37.1 77 18 98 Room Air 06/07/22 09:46 82 18 106/64 (78) 98 Room Air 06/07/22 09:45 82 18 106/64 (78) 98 Room Air 06/07/22 09:39 75 18 100/60 (73) 100 Room Air 06/07/22 09:34 37.1 90 18 116/72 (87) 99 Room Air 06/07/22 09:23 92 18 123/79 (94) 100 Room Air 06/07/22 09:18 85 18 121/77 (92) 100 Room Air 06/07/22 09:18 90 18 117/73 (88) 100 Room Air 06/07/22 09:13 94 18 123/81 (95) 100 Room Air 06/07/22 09:08 92 18 111/58 (75) 100 Room Air 06/07/22 09:03 88 18 121/66 (84) 100 Room Air 06/07/22 08:59 37.0 95 18 111/72 (85) 100 Room Air 06/07/22 08:56 76 18 107/68 (81) 100 Room Air 06/07/22 08:53 90 18 123/69 (87) 100 Room Air 06/07/22 08:50 86 18 112/65 (81) 100 Room Air 06/07/22 08:47 85 18 107/56 (73) 100 Room Air 06/07/22 08:44 86 18 108/56 (73) 100 Room Air 06/07/22 08:41 100 18 105/56 (72) 99 Room Air 06/07/22 08:38 94 18 102/58 (73) 100 Room Air 06/07/22 08:35 82 18 102/55 (71) 100 Room Air 06/07/22 08:30 98 18 103/49 (67) 100 Room Air 06/07/22 08:26 107 18 88/46 (60) 100 Room Air 06/07/22 08:23 100 18 111/53 (72) 100 Room Air 06/07/22 08:20 95 18 123/78 (93) 99 Room Air 06/07/22 08:17 86 18 117/77 (90) 100 Room Air 06/07/22 08:14 76 18 115/73 (87) 100 Room Air 06/07/22 08:08 80 18 119/75 (90) 100 Room Air I & O 06/08/22 06:59 Intake Total 2900 ml Output Total 600 ml Balance 2300 ml Labs Laboratory Tests 06/08/22 06:08: White Blood Count 19.3H, Red Blood Count 3.53L, Hemoglobin 10.4L, Hematocrit 33L , Mean Corpuscular Volume 92, Mean Corpuscular Hemoglobin 30, Mean Corpuscular Hemoglobin Concent 32, Red Cell Distribution Width 14.1, Platelet Count 215, Mean Platelet Volume 9.8, Immature Granulocyte % (Auto) 1, Neutrophils (%) (Auto) 71, Lymphocytes (%) (Auto) 20, Monocytes (%) (Auto) 8, Eosinophils (%) (Auto) 0, Basophils (%) (Auto) 0, Neutrophils # (Auto) 13.7H, Lymphocytes # (Auto) 3.8, Monocytes # (Auto) 1.5H, Eosinophils # (Auto) 0.0, Basophils # (Auto) 0.0, Immature Granulocyte # (Auto) 0.2H TABITHA BELTRAN DO Jun 08, 2022 08:08
--- NOTE | 2022-06-08 08:09 | Discharge Inst-Women's Service ---
Discharge Inst-Women's Serv Depart Medication/Instructions New, Converted or Re-Newed RX: Transmitted to Pharmacy Final Diagnosis PPD 1 NVD Problems Reviewed?: Yes Consults/Follow Up Additional Follow Up: Yes Orders/Referrals Dr. Beltran in 6 weeks Activity Activity: Activity as Tolerated Driving Instructions: No Driving for 1 Week NO SMOKING: NO SMOKING Nothing Inside Vagina: No Douching, No Kenn[place], No Tampons Diet Discharge Diet: No Restrictions Symptoms to Report to : Bleeding Excessive, Pain Increased, Fever Over 101 Degrees F, Vaginal Bleeding Increase, Questions/Concerns For Any Problems or Questions: Contact Your Physician TABITHA BELTRAN DO Jun 08, 2022 08:09
[2022-06-08] MEDS ORDERED: IBUP-844 PO (08:10)
[2022-06-08] MEDS ORDERED: DOCU100C37 PO (08:10)
[2022-06-08] MEDS ORDERED: ACHD5005 PO (08:10)
[2022-06-08] MEDS ORDERED: FERR325T24 PO (08:10)
[2022-06-08] MEDS ORDERED: DIBU30OI TOP (08:10)
[2022-06-08] MEDS: FERROUS SULF 325 MG (IRON) TAB PO SCH (08:20)
[2022-06-08] MEDS: PRENATAL VITAMIN 1 EA TAB PO SCH (08:20)
[2022-06-08] MEDS: DOCUSATE SODIUM 100 MG (COLACE) CAP PO SCH (08:20)
--- NOTE | 2022-06-08 08:24 | Postpartum Progress Note ---
Note Note Day # 1 Subjective: Patient is without complaints. Ambulating, voiding. Tolerating a regular diet without nausea or vomiting. Normal lochia has changed pads about 3 times since delivery. Pain is well controlled with oral pain medications. Pt is doing breast and formula feeding. Pt is able to urinate without complication, but hasn't had a bowel movement. Slight pain at repair site. Objective: Pt was sitting up while breast feeding before the interview/exam. Pt had an elevated WBC at 19.3, low Hgb at 10.4, and low Hct at 33%. Pt seems to be in good spirit. Physical Exam: General - Alert and oriented, no apparent distress Heart - RRR no murmurs or gallops Lungs - CTAB w/o wheezes or Rhonchi Abdomen - Soft, appropriately tender to palpation, non-distended, fundus firm at umbilicus Extremities - no edema, negative Otf's bilaterally Assessment: post- day # 1, status post vaginal delivery. Recovering well, hemodynamically stable Plan: Routine care. Encourage breast feeding. Encourage ambulation. Ferrous sulfate supplementation. Pain management is controlled according to pt, but hydrocodone/acetaminophen available if needed q4hr Plan for discharge Vitals - Labs Vital Signs - I&O Vital Signs Date Time Temp Pulse Resp B/P (MAP) Pulse Ox O2 Delivery O2 Flow Rate FiO2 06/08/22 06:10 36.5 76 18 96/51 (66) 99 Room Air 06/08/22 00:12 36.6 103 18 115/62 (79) 97 Room Air 06/07/22 20:50 36.6 104 18 111/58 (75) 97 Room Air 06/07/22 17:05 36.9 113 18 116/73 (87) 97 Room Air 06/07/22 16:45 99 18 113/56 (75) Room Air 06/07/22 16:34 110 18 Room Air 06/07/22 16:00 87 18 112/64 (80) Room Air 06/07/22 15:45 36.4 18 Room Air 06/07/22 15:18 105 18 132/78 (96) Room Air 06/07/22 15:02 88 18 119/63 (81) Room Air 06/07/22 14:48 95 20 145/86 (105) 100 Non Rebreather 15.00 06/07/22 14:28 96 20 119/76 (90) 100 Non Rebreather 15.00 06/07/22 14:23 91 20 126/73 (90) 100 Non Rebreather 15.00 06/07/22 14:18 93 20 120/72 (88) 100 Non Rebreather 15.00 06/07/22 14:14 98 20 117/65 (82) 100 Non Rebreather 15.00 06/07/22 14:06 37.1 109 20 127/65 (85) 100 Non Rebreather 15.00 06/07/22 14:03 96 18 137/60 (85) 100 Room Air 06/07/22 13:54 96 18 124/62 (82) 100 Room Air 06/07/22 13:50 83 18 105/58 (74) 100 Room Air 06/07/22 13:40 85 18 123/70 (87) 98 Room Air 06/07/22 13:26 85 18 130/71 (90) 98 Room Air 06/07/22 13:21 79 18 132/73 (92) 96 Room Air 06/07/22 13:10 77 18 141/80 (100) 96 Room Air 06/07/22 13:04 82 18 128/74 (92) 98 Room Air 06/07/22 12:59 36.8 78 18 138/79 (98) 99 Room Air 06/07/22 12:55 86 18 134/77 (96) 98 Room Air 06/07/22 12:50 85 18 134/78 (96) 98 Room Air 06/07/22 12:44 80 18 121/77 (92) 98 Room Air 06/07/22 12:40 80 18 130/76 (94) 98 Room Air 06/07/22 12:34 70 18 126/67 (86) 99 Room Air 06/07/22 12:31 76 18 124/72 (89) 100 Room Air 06/07/22 12:15 81 18 115/64 (81) 99 Room Air 06/07/22 12:00 89 18 111/60 (77) 99 Room Air 06/07/22 11:50 88 18 109/60 (76) 98 Room Air 06/07/22 11:35 88 18 98/59 (72) 98 Room Air 06/07/22 11:20 75 18 107/62 (77) 98 Room Air 06/07/22 11:05 75 18 97/52 (67) 99 Non Rebreather 15.00 06/07/22 10:50 36.8 78 18 93/53 (66) 100 Non Rebreather 15.00 06/07/22 10:35 70 18 102/55 (71) 100 Non Rebreather 15.00 06/07/22 10:21 70 18 105/56 (72) 100 Non Rebreather 15.00 06/07/22 10:05 87 18 97 Non Rebreather 15.00 06/07/22 10:00 37.1 77 18 98 Room Air 06/07/22 09:46 82 18 106/64 (78) 98 Room Air 06/07/22 09:45 82 18 106/64 (78) 98 Room Air 06/07/22 09:39 75 18 100/60 (73) 100 Room Air 06/07/22 09:34 37.1 90 18 116/72 (87) 99 Room Air 06/07/22 09:23 92 18 123/79 (94) 100 Room Air 06/07/22 09:18 85 18 121/77 (92) 100 Room Air 06/07/22 09:18 90 18 117/73 (88) 100 Room Air 06/07/22 09:13 94 18 123/81 (95) 100 Room Air 06/07/22 09:08 92 18 111/58 (75) 100 Room Air 06/07/22 09:03 88 18 121/66 (84) 100 Room Air 06/07/22 08:59 37.0 95 18 111/72 (85) 100 Room Air 06/07/22 08:56 76 18 107/68 (81) 100 Room Air 06/07/22 08:53 90 18 123/69 (87) 100 Room Air 06/07/22 08:50 86 18 112/65 (81) 100 Room Air 06/07/22 08:47 85 18 107/56 (73) 100 Room Air 06/07/22 08:44 86 18 108/56 (73) 100 Room Air 06/07/22 08:41 100 18 105/56 (72) 99 Room Air 06/07/22 08:38 94 18 102/58 (73) 100 Room Air 06/07/22 08:35 82 18 102/55 (71) 100 Room Air 06/07/22 08:30 98 18 103/49 (67) 100 Room Air 06/07/22 08:26 107 18 88/46 (60) 100 Room Air 06/07/22 08:23 100 18 111/53 (72) 100 Room Air 06/07/22 08:20 95 18 123/78 (93) 99 Room Air 06/07/22 08:17 86 18 117/77 (90) 100 Room Air 06/07/22 08:14 76 18 115/73 (87) 100 Room Air I & O 06/08/22 07:00 Intake Total 2900 ml Output Total 600 ml Balance 2300 ml Labs Laboratory Tests 06/08/22 06:08: White Blood Count 19.3H, Red Blood Count 3.53L, Hemoglobin 10.4L, Hematocrit 33L , Mean Corpuscular Volume 92, Mean Corpuscular Hemoglobin 30, Mean Corpuscular Hemoglobin Concent 32, Red Cell Distribution Width 14.1, Platelet Count 215, Mean Platelet Volume 9.8, Immature Granulocyte % (Auto) 1, Neutrophils (%) (Auto) 71, Lymphocytes (%) (Auto) 20, Monocytes (%) (Auto) 8, Eosinophils (%) (Auto) 0, Basophils (%) (Auto) 0, Neutrophils # (Auto) 13.7H, Lymphocytes # (Auto) 3.8, Monocytes # (Auto) 1.5H, Eosinophils # (Auto) 0.0, Basophils # (Auto) 0.0, Immature Granulocyte # (Auto) 0.2H ERIKA MODI Jun 08, 2022 08:24
--- NOTE | 2022-06-08 10:21 | Anesthesia-Regional Post-Op ---
Regional Patient Condition Mental Status: Alert, Oriented x3 Circulation: Same as Pre-Op Headache: Absent Sensation: Full Recovery Motor Block: Absent Post Op Complications Complications None Follow Up Care/Instructions Patient Instructions None needed. Anesthesia/Patient Condition Patient is doing well, no complaints, stable vital signs, no apparent adverse anesthesia problems. No complications reported per nursing. [place] [facility] [place] Yes DELL YANES CRNA Jun 08, 2022 10:21
[2022-06-08 12:15] VITALS: BP 107/56
[2022-06-08] MEDS: WITCH HAZEL(TUCKS) 40 EA JAR TOP PRN (15:44)
[2022-06-08] MEDS: DIBUCAINE 1% OINTMENT 30 GM TUBE TOP PRN (15:45)
[2022-06-08] MEDS: BENZOCAINE/MENTHOL (DERMOPLAST) 56 ML CAN TP PRN (15:45)
[2022-06-08 19:00] VITALS: BP 122/71
[2022-06-09 00:15] VITALS: BP 94/51
[2022-06-09] MEDS: DOCUSATE SODIUM 100 MG (COLACE) CAP PO SCH ×2 (00:18→09:17)
[2022-06-09] MEDS: IBUPROFEN 600 MG (MOTRIN) TAB PO SCH ×2 (00:18→06:18)
[2022-06-09] MEDS: PRENATAL VITAMIN 1 EA TAB PO SCH (06:17)
--- NOTE | 2022-06-09 07:16 | Postpartum Progress Note ---
ERIKA MODI 06/09/22 0716: Note Note Day # 2 Subjective: Patient is without complaints. Ambulating to urinate w/o burning sensation when urinating, but hasn't had bowel movement yet. Tolerating a regular diet without nausea or vomiting. Normal lochia. Pain is well controlled with oral pain medications. Pt states they are formula feeding more than breast currently. Objective: Pt was sitting up in bed with good spirit without any concerns. Pt has been able to tolerate pain, and sleep well. Physical Exam: General - Alert and oriented, no apparent distress Heart: RRR no murmurs or gallops Respiratory: CTAB no wheezes or rhonchi Abdomen - Soft, appropriately tender to palpation, non-distended, fundus firm at umbilicus Extremities - no edema, negative Otf's bilaterally Assessment: post- day # 2, status post vaginal delivery. Recovering well, hemodynamically stable Plan: Routine care. Encourage breast feeding. Encourage ambulation. Ferrous sulfate supplementation. Plan for discharge Vitals - Labs Vital Signs - I&O Vital Signs Date Time Temp Pulse Resp B/P (MAP) Pulse Ox O2 Delivery O2 Flow Rate FiO2 06/09/22 00:15 36.9 85 18 94/51 (65) 98 Room Air 06/08/22 19:00 36.6 86 18 122/71 (88) 100 Room Air 06/08/22 12:15 36.5 86 18 107/56 (73) 100 Room Air 06/08/22 08:00 36.6 82 18 103/59 (74) 100 Room Air NIRAV BELTRAN DO 06/09/22 0723: Note Note Verification and Attestation of Medical Student E/M Service A medical student performed and documented this service in my presence. I reviewed and verified all information documented by the medical student and made modifications to such information, when appropriate. I personally performed the physical exam and medical decision making. Nirav Beltran, Jun 09, 2022,07:23 ERIKA MODI Jun 09, 2022 07:16 NIRAV BELTRAN DO Jun 09, 2022 07:23
[2022-06-09] MEDS: FERROUS SULF 325 MG (IRON) TAB PO SCH (09:16)
[2022-06-09 09:21] VITALS: BP 121/73
== END 2022-06-09 09:55 | disposition home or self-care (01) | DRG 806 ==
LOC: WSo 23:27 → LDRP 23:29 → WSo 06-07 00:29 → LDRP 06-07 00:30
PROVIDERS: ADMIT Obstetrics & Gynecology; ATTEND Obstetrics & Gynecology
PROC: 10E0XZZ Delivery of Products of Conception, External Approach (ICD-10-PCS; principal; 2022-06-07)
PROC: 0KQM0ZZ Repair Perineum Muscle, Open Approach (ICD-10-PCS; 2022-06-07)
DX: O70.1 Second degree perineal laceration during delivery (principal); D62 Acute posthemorrhagic anemia; Z37.0 Single live birth; Z3A.40 40 weeks gestation of pregnancy; O90.81 Anemia of the puerperium
CPT/HCPCS: 36415; 81000; 84112; 85007; 85025; 85027; 86780; 86850; 86900; 86901; 99212

== ENCOUNTER 2022-07-26 | Emergency (ER) | payer MEDICAID ==
[~2022-07-26] VITALS: Ht 165.1 cm; Wt 104.5 kg
[~2022-07-26] MED LIST changes: +ACHD5005 PO; +DIBU30OI TOP; +DOCU100C37 PO; +FERR325T24 PO; +IBUP-844 PO
[2022-07-26] MEDS ORDERED: AMOXICILLIN 500 MG (POLYMOX) CAP PO STA (01:08)
[2022-07-26] MEDS ORDERED: FLUT9.9S NSEACH (01:12)
[2022-07-26] MEDS ORDERED: AMOX500C2 PO (01:12)
--- NOTE | 2022-07-26 01:13 | ED General ---
General Chief Complaint: Ear Problems Stated Complaint: CONGESTION,COUGH,LEFT EAR PAIN Nursing Triage Note: Patient with c/o left ear pain and nasal congestion x 3 days. Source of Information: Patient Exam Limitations: No Limitations History of Present Illness Date Seen by Provider: Jul 26, 2022 Time Seen by Provider: 00:55 Initial Comments This 21-year-old young lady presents to the emergency room with complaints of left ear pain and congestion and pain of the left nose. Symptoms have been present for about 5 days. She has a mild dry cough with it. She is here with her infant son who has RSV and an inguinal hernia. Primary care provider is Dr. Vazquez at [facility]. She is afebrile. Allergies and Home Medications Allergies Coded Allergies: No Known Drug Allergies (Verified , 05/08/21) Patient Home Medication List Home Medication List Reviewed: Yes Amoxicillin (Amoxicillin) 500 Mg Capsule, 1,000 MG PO BID Prescribed by: YASH LUONG on 07/26/22111 Dibucaine (Dibucaine) 1 % Oint, 1 GM TOP UD PRN for PAIN- SEE INSTRUCTIONS Prescribed by: TABITHA BELTRAN on 06/08/22809 Docusate Sodium (Docusate Sodium) 100 Mg Capsule, 100 MG PO BID PRN for CONSTIPATION-1ST LINE Prescribed by: TABITHA BELTRAN on 06/08/22809 Ferrous Sulfate (Ferosul) 325 Mg (65 Mg Iron) Tablet, 325 MG PO DAILY Prescribed by: TABITHA BELTRAN on 06/08/22809 Fluticasone Propionate (Flonase Allergy Relief) 50 Mcg/Actuation [place].susp, 2 SPRAY NSEACH BID Prescribed by: YASH LUONG on 07/26/22111 Hydrocodone Bit/Acetaminophen (HYDROcodone/APAP 5 MG/325 MG TAB) 1 Tab Tab, 1 EA PO Q4H PRN for PAIN-MODERATE (5-7) Prescribed by: TABITHA BELTRAN on 06/08/22809 Ibuprofen (Ibu) 600 Mg Tablet, 600 MG PO Q6H Prescribed by: TABITHA BELTRAN on 06/08/22809 Levothyroxine Sodium (Levothyroxine) 175 Mcg Capsule, 175 MCG PO DAILY, (Reported) Entered as Reported by: TELLO GOVEA on 05/28/22 1253 Vit No.124/Iron/FA ( Vitamin Tablet) 27 Mg Iron-800 Mcg Tablet, 1 EACH PO, (Reported) Entered as Reported by: DUONG EWING on 02/09/22 0406 Review of Systems Review of Systems Constitutional: no symptoms reported EENTM: see HPI Respiratory: see HPI Cardiovascular: no symptoms reported Gastrointestinal: no symptoms reported Genitourinary: no symptoms reported : No Musculoskeletal: no symptoms reported Skin: no symptoms reported Psychiatric/Neurological: No Symptoms Reported Hematologic/Lymphatic: No Symptoms Reported Past Fywvvwu-Ucxesn-[id number] Hx Patient Social History Tobacco Use?: No Use of E-Cig and/or Vaping dev: No Substance use?: No Immunizations Up To Date Tetanus Booster (TDap): Less than 5yrs PED Vaccines UTD: Yes First/Initial COVID19 Vaccinat: JANUARY 2021 Second COVID19 Vaccination Lucio: JANUARY 2021 Third COVID19 Vaccination Date: 06/10/2021 Seasonal Allergies Seasonal Allergies: No Past Medical History Surgery/Hospitalization HX: HYPOTHYROIDISM Surgeries: Yes Adenoidectomy, Tonsillectomy Respiratory: No Cardiac: No Neurological: No Last Menstrual Period: Jun 03, 2021 Reproductive Disorders: No Female Reproductive Disorders: Denies Sexually Transmitted Disease: No HIV/AIDS: No Genitourinary: No Gastrointestinal: Yes ( A BABY) Gastroesophageal Reflux Musculoskeletal: Yes Chronic Back Pain Endocrine: Yes (Jm's thyroiditis, insulin resistant) Hypothyroidsim HEENT: No Cancer: No Psychosocial: Yes Anxiety, Depression Integumentary: Yes (HIVES/URTICARIA) Blood Disorders: No Family Medical History Cancer Cancer of colon Cataract Family history: Asthma Family history: Cardiovascular disease Family history: Diabetes mellitus Family history: Hypertension Family history: Thyroid disorder Heart disease No Family History of: Abdominal aortic aneurysm Marco's disease Alcoholism Aphasia Congenital heart disease Congestive heart failure Cystic fibrosis Dementia Dysphagia Family history: Allergy Family history: Alzheimer's disease Family history: Arthritis Family history: Breast disease Family history: Coronary thrombosis Family history: Gastrointestinal disease Family history: Glaucoma Family history: Osteoporosis Headache Hearing loss Hereditary disease History of - anemia History of - disorder History of - respiratory disease History of drug abuse Human immunodeficiency virus (HIV) seropositivity Hypercholesterolemia Infertile Kidney disease Malignant neoplasm of lung Myocardial infarction Parkinson's disease Prostate cancer Psychotic disorder Seizure disorder Stroke Tuberculosis Visual impairment Physical Exam Vital Signs Vital Signs - First Documented 07/26/22 00:52 Temp 37.0 Pulse 88 Resp 20 B/P (MAP) 118/73 (88) Pulse Ox 100 Capillary Refill : Less Than 3 Seconds Height, Weight, BMI Height: 5'5.00" Weight: 180lbs. 7oz. 81.401939sm; 38.00 BMI Method:Stated General Appearance: No Apparent Distress, WD/WN HEENT: PERRL/EOMI, Normal ENT Inspection, Pharynx Normal, Other (Dull and bulging TMs bilaterally) Neck: Normal Inspection Respiratory: Lungs Clear, Normal Breath Sounds, No Accessory Muscle Use Cardiovascular: Regular Rate, Rhythm, No Edema, No Murmur Extremity: Normal Inspection Neurologic/Psychiatric: Alert, Oriented x3, No Motor/Sensory Deficits, Normal Mood/Affect Skin: Normal Color, Warm/Dry Progress/Results/Core Measures Suspected Sepsis SIRS Temperature: Pulse: 88 Respiratory Rate: 20 Blood Pressure 118 /73 Mean: 88 Results/Orders My Orders Orders - YASH STOUT MD Amoxicillin Capsule (Polymox Capsule) (07/26/22 01:08) Vital Signs/I&O 07/26/22 07/26/22 00:52 01:20 Temp 37.0 37.0 Pulse 88 88 Resp 20 20 B/P (MAP) 118/73 (88) 118/73 Pulse Ox 100 100 Capillary Refill : Less Than 3 Seconds Blood Pressure Mean: 88 Progress Note : Progress Note Patient was found to have bilateral otitis media and was started on amoxicillin treatment. Departure Impression Primary Impression: Bilateral otitis media with effusion Additional Impression: Upper respiratory infection Qualified Codes: J06.9 - Acute upper respiratory infection, unspecified Disposition: 01 HOME, SELF-CARE Condition: Stable Departure-Patient Inst. Decision time for Depature: 01:10 Referrals: FERNANDO VAZQUEZ DO (PCP/Family) Primary Care Physician Patient Instructions: Ear Infections (Otitis Media) in Adults (DC), Upper Respiratory Infection ED Add. Discharge Instructions: Drink plenty of clear liquids to stay well-hydrated. You may take Tylenol (acetaminophen) and/or ibuprofen for pain or fever. Complete the 10 days of antibiotics as prescribed for your infection. You may use Flonase as prescribed to help with nasal congestion and help your ears drain. Call your doctor or return to care if you have worsening symptoms despite following these instructions. All discharge instructions reviewed with patient and/or family. Voiced understanding. Scripts Fluticasone Propionate (Flonase Allergy Relief) 50 Mcg/Actuation [place].susp 2 SPRAY NSEACH BID for 14 Days, #1 EACH 2 SPRAYS PER NOSTRIL DAILY X 2 DAYS THEN 1 SPRAY DAILY Prov: YASH STOUT MD 07/26/22 Amoxicillin (Amoxicillin) 500 Mg Capsule 1000 MG PO BID, #40 CAP 0 Refills Prov: YASH STOUT MD 07/26/22 Copy Copies To 1: FERNANDO VAZQUEZ JOSHUA T MD Jul 26, 2022 01:13
[2022-07-26 01:20] VITALS: BP 118/73
== END 2022-07-26 01:20 | disposition home or self-care (01) ==
LOC: EDUNIT# → ER 00:05
DX: H65.93 Unspecified nonsuppurative otitis media, bilateral (principal); J06.9 Acute upper respiratory infection, unspecified
CPT/HCPCS: 99283

== ENCOUNTER 2022-08-29 23:51 | Emergency (ER) | payer MEDICAID ==
[~2022-08-29] VITALS: Ht 165 cm; Wt 104.5 kg
[~2022-08-29 23:51] MED LIST changes: +AMOX500C2 PO; +FLUT9.9S NSEACH
--- NOTE | 2022-08-29 23:55 | ED General ---
General Stated Complaint: VISION BLURRY/SORE THROAT Source of Information: Patient Exam Limitations: No Limitations History of Present Illness Date Seen by Provider: Aug 29, 2022 Time Seen by Provider: 23:55 Initial Comments 21-year-old female with no pertinent past medical history coming in due to 3 days of a sore throat and now redness in her eyes with some discomfort that started tonight. She states she feels warm, but has not taken her temperature. Denies any cough, nausea, vomiting, diarrhea, chest pain, shortness of breath, rash, or any other concerns. She has had her tonsils and adenoids removed in the past. Allergies and Home Medications Allergies Coded Allergies: No Known Drug Allergies (Verified , 05/08/21) Patient Home Medication List Home Medication List Reviewed: Yes Levothyroxine Sodium (Levothyroxine) 175 Mcg Capsule, 175 MCG PO DAILY, (Reported) Entered as Reported by: TELLO GOVEA on 05/28/22 1253 Last Action: Reviewed Polymyxin B Sulf/Trimethoprim (Polytrim Eye Drops) 10,000 Unit-1 Mg/Ml Drops, 2 DROPS OP Q6H Prescribed by: CARYN ROWLAND on 08/30/22 0014 Vit No.124/Iron/FA ( Vitamin Tablet) 27 Mg Iron-800 Mcg Tablet, 1 EACH PO, (Reported) Entered as Reported by: DUONG EWING on 02/09/22 0406 Last Action: Reviewed Discontinued Medications Amoxicillin (Amoxicillin) 500 Mg Capsule, 1,000 MG PO BID Discontinued Reason: No Longer Taking Prescribed by: YASH LUONG on 07/26/22 0112 Last Action: Discontinued Dibucaine (Dibucaine) 1 % Oint, 1 GM TOP UD PRN for PAIN- SEE INSTRUCTIONS Discontinued Reason: No Longer Taking Prescribed by: TABITHA BELTRAN on 06/08/22809 Last Action: Discontinued Docusate Sodium (Docusate Sodium) 100 Mg Capsule, 100 MG PO BID PRN for CONSTIPATION-1ST LINE Discontinued Reason: No Longer Taking Prescribed by: TABITHA BELTRAN on 06/08/22809 Last Action: Discontinued Ferrous Sulfate (Ferosul) 325 Mg (65 Mg Iron) Tablet, 325 MG PO DAILY Discontinued Reason: No Longer Taking Prescribed by: TABITHA BELTRAN on 06/08/22809 Last Action: Discontinued Fluticasone Propionate (Flonase Allergy Relief) 50 Mcg/Actuation [place].susp, 2 SPRAY NSEACH BID Discontinued Reason: No Longer Taking Prescribed by: YASH LUONG on 07/26/22111 Last Action: Discontinued Hydrocodone Bit/Acetaminophen (HYDROcodone/APAP 5 MG/325 MG TAB) 1 Tab Tab, 1 EA PO Q4H PRN for PAIN-MODERATE (5-7) Discontinued Reason: No Longer Taking Prescribed by: TABITHA BELTRAN on 06/08/22809 Last Action: Discontinued Ibuprofen (Ibu) 600 Mg Tablet, 600 MG PO Q6H Discontinued Reason: No Longer Taking Prescribed by: TABITHA BELTRAN on 06/08/22809 Last Action: Discontinued Review of Systems Review of Systems Constitutional: chills, malaise EENTM: No nose congestion Respiratory: no symptoms reported Cardiovascular: no symptoms reported Gastrointestinal: no symptoms reported Genitourinary: no symptoms reported Musculoskeletal: no symptoms reported Skin: no symptoms reported Past Yepayvn-Picrtb-Ruvxjz Hx Patient Social History Substance use?: No Immunizations Up To Date Tetanus Booster (TDap): Less than 5yrs PED Vaccines UTD: Yes First/Initial COVID19 Vaccinat: JANUARY 2021 Second COVID19 Vaccination Lucio: JANUARY 2021 Third COVID19 Vaccination Date: 06/10/2021 Seasonal Allergies Seasonal Allergies: No Past Medical History Surgery/Hospitalization HX: HYPOTHYROIDISM Surgeries: Yes Adenoidectomy, Tonsillectomy Respiratory: No Cardiac: No Neurological: No Reproductive Disorders: No Female Reproductive Disorders: Denies Sexually Transmitted Disease: No HIV/AIDS: No Genitourinary: No Gastrointestinal: Yes ( A BABY) Gastroesophageal Reflux Musculoskeletal: Yes Chronic Back Pain Endocrine: Yes (Jm's thyroiditis, insulin resistant) Hypothyroidsim HEENT: No Cancer: No Psychosocial: Yes Anxiety, Depression Integumentary: Yes (HIVES/URTICARIA) Blood Disorders: No Family Medical History Cancer Cancer of colon Cataract Family history: Asthma Family history: Cardiovascular disease Family history: Diabetes mellitus Family history: Hypertension Family history: Thyroid disorder Heart disease No Family History of: Abdominal aortic aneurysm Marco's disease Alcoholism Aphasia Congenital heart disease Congestive heart failure Cystic fibrosis Dementia Dysphagia Family history: Allergy Family history: Alzheimer's disease Family history: Arthritis Family history: Breast disease Family history: Coronary thrombosis Family history: Gastrointestinal disease Family history: Glaucoma Family history: Osteoporosis Headache Hearing loss Hereditary disease History of - anemia History of - disorder History of - respiratory disease History of drug abuse Human immunodeficiency virus (HIV) seropositivity Hypercholesterolemia Infertile Kidney disease Malignant neoplasm of lung Myocardial infarction Parkinson's disease Prostate cancer Psychotic disorder Seizure disorder Stroke Tuberculosis Visual impairment Physical Exam Vital Signs Vital Signs - First Documented 08/29/22 23:56 Temp 36.4 Pulse 85 Resp 16 B/P (MAP) 120/63 (82) Pulse Ox 99 O2 Delivery Room Air Capillary Refill : Height, Weight, BMI Height: 5'5.00" Weight: 180lbs. 7oz. [id number]; 38.00 BMI Method:Stated General Appearance: No Apparent Distress, WD/WN Eyes: Bilateral Eye Normal Inspection, Bilateral Eye PERRL, Bilateral Eye EOMI, Bilateral Eye Other (Conjunctival erythema) HEENT: PERRL/EOMI, TMs Normal, Normal ENT Inspection, Pharyngeal Erythema, Other (Tonsils surgically absent) Neck: Full Range of Motion, Non Tender, Supple Respiratory: Chest Non Tender, Lungs Clear, Normal Breath Sounds, No Accessory Muscle Use, No Respiratory Distress Cardiovascular: Regular Rate, Rhythm, No Edema, Normal Peripheral Pulses Gastrointestinal: Normal Bowel Sounds, Non Tender, Soft Back: Normal Inspection, No CVA Tenderness Extremity: Normal Capillary Refill, Normal Inspection, Normal Range of Motion, Non Tender, No Calf Tenderness, No Pedal Edema Neurologic/Psychiatric: Alert, No Motor/Sensory Deficits, Normal Mood/Affect Skin: Normal Color, Warm/Dry Lymphatic: No Adenopathy Progress/Results/Core Measures Suspected Sepsis SIRS Temperature: Pulse: Respiratory Rate: Blood Pressure / Mean: Results/Orders Lab Results Laboratory Tests Test 08/30/22 00:00 Range/Units My Orders Orders - CARYN ROWLAND MD Dexamethasone Oral Soln (Ed) (Decadron I (08/30/22 00:06) Ibuprofen Tablet (Motrin Tablet) (08/30/22 00:15) Influenza A And B By Pcr (08/30/22 00:06) Covid 19 Inhouse Test (08/30/22 00:06) Medications Given in ED Current Medications Medications Dose Ordered Sig/Shiraz Route Start Time Stop Time Status Last Admin Dose Admin Ibuprofen 600 mg ONCE ONCE PO 08/30/22 00:15 08/30/22 00:16 08/30/22 00:12 600 MG Vital Signs/I&O 08/29/22 23:56 Temp 36.4 Pulse 85 Resp 16 B/P (MAP) 120/63 (82) Pulse Ox 99 O2 Delivery Room Air Capillary Refill : Progress Note : Progress Note 21-year-old female with above history coming in due to sore throat and eye redness with some pain. ABCs were intact and vitals were stable on presentation. Physical exam with some mild pharyngeal erythema with tonsils surgically absent with obviously no exudate. She does have some conjunctival erythema and injection with a little bit of discharge noted. He does not wear contacts. We will do flu and COVID testing, held off on strep testing given the absence of the tonsils. He is otherwise well-appearing with clear lung sounds, normal oxygen saturation, and no clinical indications for pneumonia or chest x- ray. She has normal voice, no trismus, normal range of motion of her neck, no red flags for deep space neck infection. We will give her some Decadron for the likely pharyngitis to help with pain as well as ibuprofen. For her conjunctivitis we will send a prescription for topical antibiotics. I believe she is otherwise stable for discharge with outpatient follow-up. She was sent home with strict return precautions Departure Impression Primary Impression: Conjunctivitis Qualified Codes: H10.33 - Unspecified acute conjunctivitis, bilateral Additional Impression: Pharyngitis Qualified Codes: J02.8 - Acute pharyngitis due to other specified organisms Disposition: HOME, SELF-CARE Condition: Stable Departure-Patient Inst. Decision time for Depature: 00:12 Referrals: FERNANDO VAZQUEZ DO (PCP/Family) Primary Care Physician Patient Instructions: Conjunctivitis ([facility]) ED, Sore Throat, Adult ED Add. Discharge Instructions: It does not look like strep throat and is highly unlikely given the absence of your tonsils. It does look like a viral infection in your throat which the steroid should hopefully help with the pain and they are a little bit longer lasting. Take ibuprofen 600 mg every 6 hours as needed for pain. If you have pain or fever on top of that you can add in Tylenol 1000 mg every 6-8 hours. You will be on the antibiotic eyedrops for the next week which you can start tomorrow. We will call you with the results to your flu and COVID testing. If you still have fever and sore throat after several days, then you can fill the prescription for the amoxicillin. Scripts Amoxicillin (Amoxicillin) 500 Mg Capsule 1000 MG PO DAILY for 10 Days, #20 CAP 0 Refills Prov: CARYN ROWLAND MD 08/30/22 Polymyxin B Sulf/Trimethoprim (Polytrim Eye Drops) 10,000 Unit-1 Mg/Ml Drops 2 DROPS OP Q6H for 7 Days, #10 ML Prov: CARYN ROWLAND MD 08/30/22 Work/School Note: Work Release Form Date Seen in the Emergency Department: Aug 30, 2022 Return to Work: Aug 31, 2022 Restrictions: No Restrictions CARYN ROWLAND MD Aug 29, 2022 23:55
[2022-08-29 23:56] VITALS: BP 120/63
[2022-08-30] MEDS ORDERED: POLY10DR OP (00:14)
[2022-08-30] MEDS ORDERED: IBUPROFEN 600 MG (MOTRIN) TAB PO ONE (00:15)
[2022-08-30] MEDS ORDERED: AMOX500C2 PO (00:18)
== END 2022-08-30 00:21 | disposition home or self-care (01) ==
LOC: EDUNIT# 23:51 → ER 23:53
DX: H10.9 Unspecified conjunctivitis (principal); J02.9 Acute pharyngitis, unspecified; Z20.822 Contact with and (suspected) exposure to COVID-19
CPT/HCPCS: 87636; 99283

== ENCOUNTER 2023-02-09 19:33 | Emergency (ER) | payer MEDICAID ==
[~2023-02-09] VITALS: Ht 165 cm; Wt 107.9 kg
[~2023-02-09 19:33] MED LIST changes: +POLY10DR OP
--- NOTE | 2023-02-09 20:01 | ED Cough/URI ---
General Chief Complaint: Cough/Cold/Flu Symptoms Stated Complaint: SHAKEY/HEADACHE/COUGH/CONGESTION Nursing Triage Note: COUGH STARTED TWO DAYS AGO, PRODUCTIVE. STATES SON HAS A COUGH. PATIENT NOW HAS A HEADACHE. WITH CONGESTION. 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 She reports a productive cough. No shortness of breath or chest pain. She states her son has a cough as well that is very similar. She developed generalized head pain 2 days ago. Rates head pain 4 out of 10. She reports nasal congestion sinus pressure. she has been taken Tylenol and ibuprofen. Denies of any visual changes, unilateral weakness, nausea or vomiting with the head pain. She states she has felt shaky and cold. No fever. No vomiting or diarrhea. Sore throat 3 to 4 days ago but that is improved. Has been taken Tylenol ibuprofen and or Aleve at home without much improvement. She she is up-to-date her COVID vaccines. She denies any urinary symptoms. Menstrual cycle started February 07. Denies visual changes, neck pain, chest pain, abdominal pain, dysuria, hematuria, increased urine frequency (CARYN YAÑEZ) Allergies and Home Medications Allergies Coded Allergies: No Known Drug Allergies (Verified , 05/08/21) Patient Home Medication List Home Medication List Reviewed: Yes (CARYN YAÑEZ) Amoxicillin (Amoxicillin) 500 Mg Capsule, 1,000 MG PO DAILY Prescribed by: CARYN ROWLAND on 08/30/22 0018 Levothyroxine Sodium (Levothyroxine) 175 Mcg Capsule, 175 MCG PO DAILY, (Reported) Entered as Reported by: TELLO GOVEA on 05/28/22 1253 Polymyxin B Sulf/Trimethoprim (Polytrim Eye Drops) 10,000 Unit-1 Mg/Ml Drops, 2 DROPS OP Q6H Prescribed by: CARYN ROWLAND on 08/30/22 0014 Vit No.124/Iron/FA ( Vitamin Tablet) 27 Mg Iron-800 Mcg Tablet, 1 EACH PO, (Reported) Entered as Reported by: DUONG EWING on 02/09/22 0406 Review of Systems Review of Systems Constitutional: No chills, No diaphoresis, No malaise, No weakness EENTM: nose congestion, throat pain; No blurred vision, No double vision, No eye pain Respiratory: cough; No hemoptysis, No short of breath Cardiovascular: No chest pain Gastrointestinal: No abdominal pain, No diarrhea, No nausea, No vomiting Genitourinary: No decreased output, No discharge Musculoskeletal: No back pain, No joint pain, No joint swelling, No muscle pain Skin: No change in color, No change in hair/nails (CARYN YAÑEZ) All Other Systems Reviewed Negative Unless Noted: Yes (CARNY YAÑEZ) Past Ibawhve-Hccclr-Kgrlrk Hx Patient Social History Tobacco Use?: No Substance use?: No Pt feels they are or have been: No (CARYN YAÑEZ) Immunizations Up To Date Tetanus Booster (TDap): Less than 5yrs PED Vaccines UTD: Yes First/Initial COVID19 Vaccinat: JANUARY 2021 Second COVID19 Vaccination Lucio: JANUARY 2021 Third COVID19 Vaccination Date: 06/10/2021 (CARYN YAÑEZ) Seasonal Allergies Seasonal Allergies: No (CARYN YAÑEZ) Past Medical History Surgery/Hospitalization HX: HYPOTHYROIDISM, t/a Surgeries: Yes Adenoidectomy, Tonsillectomy Respiratory: No Cardiac: No Neurological: No Reproductive Disorders: No Female Reproductive Disorders: Denies Sexually Transmitted Disease: No HIV/AIDS: No Genitourinary: No Gastrointestinal: Yes ( A BABY) Gastroesophageal Reflux Musculoskeletal: Yes Chronic Back Pain Endocrine: Yes (Jm's thyroiditis, insulin resistant) Hypothyroidsim HEENT: No Cancer: No Psychosocial: Yes Anxiety, Depression Integumentary: Yes (HIVES/URTICARIA) Blood Disorders: No (CARYN YAÑEZ) Family Medical History Cancer Cancer of colon Cataract Family history: Asthma Family history: Cardiovascular disease Family history: Diabetes mellitus Family history: Hypertension Family history: Thyroid disorder Heart disease No Family History of: Abdominal aortic aneurysm Marco's disease Alcoholism Aphasia Congenital heart disease Congestive heart failure Cystic fibrosis Dementia Dysphagia Family history: Allergy Family history: Alzheimer's disease Family history: Arthritis Family history: Breast disease Family history: Coronary thrombosis Family history: Gastrointestinal disease Family history: Glaucoma Family history: Osteoporosis Headache Hearing loss Hereditary disease History of - anemia History of - disorder History of - respiratory disease History of drug abuse Human immunodeficiency virus (HIV) seropositivity Hypercholesterolemia Infertile Kidney disease Malignant neoplasm of lung Myocardial infarction Parkinson's disease Prostate cancer Psychotic disorder Seizure disorder Stroke Tuberculosis Visual impairment Physical Exam Vital Signs - First Documented 02/09/23 19:53 Temp 36.7 Pulse 95 Resp 20 B/P (MAP) 117/71 (86) Pulse Ox 100 O2 Delivery Room Air (GUILLERMINA BARNES DO) Capillary Refill : Less Than 3 Seconds (CARYN YAÑEZ) Height: 5'5.00" Weight: 180lbs. 7oz. 81.573007ui; 39.00 BMI Method:Stated General Appearance: WD/WN, no apparent distress Eyes: Bilateral Eye Normal Inspection, Bilateral Eye PERRL, Bilateral Eye EOMI HEENT: PERRL/EOMI, normal ENT inspection, TMs normal, pharynx normal Neck: non-tender, full range of motion, supple Respiratory: chest non-tender, lungs clear, normal breath sounds, no respiratory distress, no accessory muscle use Cardiovascular: regular rate, rhythm, no edema, no gallop Gastrointestinal: normal bowel sounds, non tender, soft, no organomegaly Extremities: normal range of motion, non-tender, normal inspection, no pedal edema, no calf tenderness Neurologic/Psychiatric: director bioinformatics II-XII nml as tested, no motor/sensory deficits, alert, normal mood/affect, oriented x 3 Skin: normal color, warm/dry (CARYN YAÑEZ) Progress/Results/Core Measures Suspected Sepsis SIRS Temperature: Pulse: 95 Respiratory Rate: 20 Blood Pressure 117 /71 Mean: 86 (CARYN YAÑEZ) Results/Orders Lab Results Laboratory Tests Test 02/09/23 19:59 Range/Units Influenza Type A (RT-PCR) Not Detected Not Detecte Influenza Type B (RT-PCR) Not Detected Not Detecte SARS-CoV-2 RNA (RT-PCR) Not Detected Not Detecte (GUILLERMINA BARNES DO) Vital Signs/I&O 02/09/23 02/09/23 19:53 20:43 Temp 36.7 36.7 Pulse 95 95 Resp 20 20 B/P (MAP) 117/71 (86) 117/71 Pulse Ox 100 100 O2 Delivery Room Air Room Air (GUILLERMINA BARNES DO) Vital Signs/I&O Capillary Refill : Less Than 3 Seconds (CARYN YAÑEZ) Blood Pressure Mean: 86 Departure Communication (PCP) Patient presents ED with flulike symptoms. Patient vital signs stable. She does not appear toxic or septic. Lung sounds clear bilateral. Bilateral TMs clear. Oropharynx patent. Due to current complaint COVID influenza was ordered. Differential diagnosis viral syndrome versus pneumonia versus allergies. COVID influenza was negative. Lung sounds were clear no rhonchi, wheezing suggesting pneumonia. No evidence of respiratory distress. No imaging of the chest at this time. Discussed with patient this is likely viral in nature. Discussed cough medication Robitussin, Mucinex, and anti- inflammatories. Provided work note. If any worsening cough, fever, difficulty breathing to return back to ED. patient without any urinary symptoms. Follow-up your PCP 1 to 2 days for reevaluation. (CARYN YAÑEZ) Impression Primary Impression: Viral syndrome Disposition: HOME, SELF-CARE Condition: Stable Departure-Patient Inst. Decision time for Depature: 20:32 (CARYN YAÑEZ) Referrals: FERNANDO VAZQUEZ DO (PCP/Family) Primary Care Physician Patient Instructions: Viral Syndrome (DC) Add. Discharge Instructions: Recommend anti-inflammatories, delsym for cough, Mucinex. If any worsening symptoms return back to ED. All discharge instructions reviewed with patient and/or family. Voiced understanding. Work/School Note: Work Release Form Date Seen in the Emergency Department: Feb 09, 2023 Return to Work: Feb 11, 2023 ATTENDING PHYSICIAN NOTE: I WAS PHYSICALLY PRESENT ER PHYSICIAN, BUT I WAS NOT INVOLVED IN ANY DECISION MAKING OR ANY CARE OF THIS PATIENT AND I AM NOT COLLABORATING PHYSICIAN. (GUILLERMINA BARNES DO) CARYN YAÑEZ Feb 09, 2023 20:01 GUILLERMINA BARNES DO Feb 09, 2023 23:26
[2023-02-09 20:43] VITALS: BP 117/71
== END 2023-02-09 20:44 | disposition home or self-care (01) ==
LOC: EDUNIT# 19:33 → ER 19:35
DX: B34.9 Viral infection, unspecified (principal); R05.9 Cough, unspecified; R09.81 Nasal congestion; R51.9 Headache, unspecified; Z20.822 Contact with and (suspected) exposure to COVID-19
CPT/HCPCS: 87636; 99283